=== PATIENT | female | born 1955 | race Caucasian/White ===

== ENCOUNTER 2023-02-21 08:41 | Outpatient (OUT) | payer MEDICARE, SELFPAY ==
--- NOTE | 2023-02-21 08:43 | MM_ITS ---
Patient Name: JEAINE HARDIN MR#: [id number] : 1955 Exam Date: 02/21/2023 Ordering Doctor: DR IVÁN MARROQUIN M.D. RADIOLOGY REPORT PROCEDURE: MM TOMOSYNTHESIS SCREENING BI COMPARISON: MG MAMM SCREEN 3D CRICKET CAD, 01/28/2022. MG MAMM SCREEN 3D CRICKET CAD, 12/23/2020. MG MAMM SCREEN CRICKET W CAD, 05/22/2018. MAMMO CRICKET SCREEN, 01/19/2012. INDICATIONS: Screening Calculator Name NCI Breast Cancer Risk Assessment Tool 5 Year Breast Cancer Risk 1.80% Lifetime Breast Cancer Risk 6.60% Personal Breast Cancer No Personal Ovarian Cancer No Treatments None Family Cancers Brother with bladder/prostate cancer at age 51; Aunt-paternal with breast cancer at age 50; Aunt-maternal with pancreatic cancer at age 60. LOCATION: [facility] BREAST COMPOSITION: Heterogeneously dense,which may obscure small masses. FINDINGS: DIAGNOSTIC CATEGORY 1--NEGATIVE. RIGHT BREAST: No significant suspicious finding. No significant change has occurred. LEFT BREAST: No significant suspicious finding. No significant change has occurred. RECOMMENDATIONS: ROUTINE MAMMOGRAM AND CLINICAL EVALUATION IN 12 MONTHS. PLEASE NOTE: A NORMAL MAMMOGRAM DOES NOT EXCLUDE THE POSSIBILITY OF BREAST CANCER. A CLINICALLY SUSPICIOUS PALPABLE LUMP SHOULD BE BIOPSIED. Dictated by: Ian Bills M.D. on 02/21/2023 at 15:05 Approved by: Ian Bills M.D. on 02/21/2023 at 15:07
== END 2023-02-21 08:42 | disposition home or self-care (01) ==
LOC: MAMMO 08:41
PROVIDERS: PCP Family Medicine; Visit Provider Family Medicine
DX: Z12.31 Encounter for screening mammogram for malignant neoplasm of breast (principal); Z80.52 Family history of malignant neoplasm of bladder; Z80.42 Family history of malignant neoplasm of prostate; Z80.3 Family history of malignant neoplasm of breast; Z80.8 Family history of malignant neoplasm of other organs or systems
CPT/HCPCS: 77063; 77067

== ENCOUNTER 2024-02-26 09:01 | Outpatient (OUT) | payer OTHER, SELFPAY ==
--- NOTE | 2024-02-26 09:05 | MM_ITS ---
Patient Name: JEANIE HARDIN MR#: [id number] : 1955 Exam Date: 02/26/2024 Ordering Doctor: DR IVÁN MARROQUIN M.D. RADIOLOGY REPORT PROCEDURE: MM TOMOSYNTHESIS SCREENING BI COMPARISON: MM TOMOSYNTHESIS SCREENING BI, 02/21/2023. MG MAMM SCREEN 3D CRICKET CAD, 01/28/2022. MG MAMM SCREEN 3D CRICKET CAD, 12/23/2020. MAMMO CRICKET SCREEN, 01/19/2012. INDICATIONS: Screening Calculator Name NCI Breast Cancer Risk Assessment Tool 5 Year Breast Cancer Risk 1.80% Lifetime Breast Cancer Risk 6.40% Personal Breast Cancer No Personal Ovarian Cancer No Treatments None Family Cancers Brother with bladder/prostate cancer at age 51; Aunt-paternal with breast cancer at age 50; Aunt-maternal with pancreatic cancer at age 60. LOCATION: [facility] BREAST COMPOSITION: The breasts are heterogeneously dense,which may obscure small masses. FINDINGS: DIAGNOSTIC CATEGORY 1--NEGATIVE. RIGHT BREAST: No significant suspicious finding. No significant change has occurred. LEFT BREAST: No significant suspicious finding. No significant change has occurred. RECOMMENDATIONS: ROUTINE MAMMOGRAM AND CLINICAL EVALUATION IN 12 MONTHS. PLEASE NOTE: A NORMAL MAMMOGRAM DOES NOT EXCLUDE THE POSSIBILITY OF BREAST CANCER. A CLINICALLY SUSPICIOUS PALPABLE LUMP SHOULD BE BIOPSIED. Dictated by: Ian Bills M.D. on 02/26/2024 at 15:43 Approved by: Ian Bills M.D. on 02/26/2024 at 15:47
== END 2024-02-26 09:02 | disposition home or self-care (01) ==
LOC: MAMMO 09:01
PROVIDERS: PCP Family Medicine; Visit Provider Family Medicine
DX: Z12.31 Encounter for screening mammogram for malignant neoplasm of breast (principal); Z80.52 Family history of malignant neoplasm of bladder; Z80.3 Family history of malignant neoplasm of breast; Z80.42 Family history of malignant neoplasm of prostate; Z80.8 Family history of malignant neoplasm of other organs or systems
CPT/HCPCS: 77063; 77067

== ENCOUNTER 2024-11-05 13:45 | Outpatient (OUT) | payer MEDICARE, SELFPAY ==
--- OUTSIDE RECORDS SUMMARY | 2024-10-22 14:00 | XMS_ITS | Encounter Summary ---
Author Organization [facility] Address [address] [place] [address] Care Team Providers Care Singe Machine Operator Name Role Phone Fransico Ng MD Primary Care Provider [phone] Fransico Ng MD Unavailable Reason for Referral * Imaging (Routine) - Authorized Specialty Diagnoses / Procedures Referred By Contac t Referred To Contact Radiology Diagnoses Diverticulitis Procedures CT abdomen pelvis w and wo IV contrast Fransico Ng MD [address] [address] [place] [address] Phone: tel: fax: [facility] [address] [facility] [address] [place] [address] Phone: tel: fax: Referral ID Status Reason Start Date Expiration Date V isits Requested Visits Authorized [id number] Authorized 10/22/2024 04/20/2025 1 1 Reason for Visit * Reason Comments Diverticulitis Encounter Details Date Type Department Care Team (Late st Contact Info) Description 10/22/2024 2:00 PM EDT [facility] [address] [facility] [address] [place] [address] Fransico Ng MD 112 [facility] [address] [place] [address] Diverticulitis (Primary Dx); OAB (overactive bladder) Social History Tobacco Use Types Packs/Day Years Used Date Smoking Tobacco: Former Cigarettes 1 34 1 976 - 2010 Smokeless Tobacco: Never Alcohol Use Standard Drinks/Week Comments Never 0 (1 standard drink = 0.6 oz pure alcohol) caffeine intake: 1-2 cups per day Humiliation, Afraid, Rape, and Kick questionnair e Answer Date Recorded Within the last year, have y ou been afraid of your partner or ex-partner? Patient declined 11/23/2022 Within the last year, have y ou been humiliated or emotionally abused in other ways by your partner or ex-partner? Patient declined 11/23/2022 Within the last year, have y ou been kicked, hit, slapped, or otherwise physically hurt by your partner or ex-partner? Patient declined 11/23/2022 Within the last year, have y ou been raped or forced to have any kind of sexual activity by your partner or ex-partner? Patient declined 11/23/2022 Social Connection and Isolation Panel [NHANES] A nswer Date Recorded In a typical week, how many times do you talk on the phone with family, friends, or neighbors? Patient declined 11/23/2022 How often do you get togethe r with friends or relatives? Patient declined 11/23/2022 How often do you attend latter day or scientologist serv ices? Patient declined 11/23/2022 Do you belong to any clubs o r organizations such as latter day groups, unions, fraternal or athletic groups, or school groups? Patient declined 11/23/2022 How often do you attend meet ings of the clubs or organizations you belong to? Patient declined 11/23/2022 Are you , , di vorced, , never , or living with a partner? Patient declined 11/23/2022 AUDIT-C Answer Date Recorded Q1: How often do you have a drink containing alc ohol? Patient declined 11/23/2022 Q2: How many drinks containi ng alcohol do you have on a typical day when you are drinking? Patient declined 11/23/2022 Q3: How often do you have si x or more drinks on one occasion? Patient declined 11/23/2022 Overall Financial Resource Strain (CARDIA) Answe r Date Recorded How hard is it for you to pa y for the very basics like food, housing, medical care, and heating? Patient declined 11/23/2022 PHQ-2 Answer Date Recorded Patient Health Questionnaire-2 Score 0 10/22/2024 Exercise Vital Sign Answer Date Recorde d On average, how many days pe r week do you engage in moderate to strenuous exercise (like a brisk walk)? Patient declined On average, how many minutes do you engage in exercise at this level? Patient declined 11/23/2022 Hunger Vital Sign Answer Date Recorded Within the past 12 months, y ou worried that your food would run out before you got the money to buy more. Patient declined Within the past 12 months, t he food you bought just didn't last and you didn't have money to get more. Patient declined 08/2022 PRAPARE - Transportation Answer Date Re corded In the past 12 months, has l ack of transportation kept you from medical appointments or from getting medications? Patient declined 11/23/2022 In the past 12 months, has l ack of transportation kept you from meetings, work, or from getting things needed for daily living? Patient declined 11/23/2022 Housing Stability Vital Sign Answer Milo e Recorded In the last 12 months, was t here a time when you were not able to pay the mortgage or rent on time? Patient refused 11/24/19 23 Number of Places Lived in the Last Year Not on f ile 11/23/2022 In the last 12 months, was t here a time when you did not have a steady place to sleep or slept in a usp (including now)? Patient refused 11/23/2022 Comments Unknown Sex and Gender Information Value Date Recorded Sex Assigned at Not on file Legal Sex Female 6:51 PM EDT Gender Identity Not on file Sexual Orientation Not on file documented as of this encounter Last Filed Vital Signs Vital Sign Reading Time Taken Comments Blood Pressure 112/78 10/22/2024 1:54 PM EDT Pulse 108 10/22/2024 1:54 PM EDT Temperature - - Respiratory Rate - - Oxygen Saturation 98% 10/22/2024 1:54 PM EDT Inhaled Oxygen Concentration - - Weight 60.3 kg (133 lb) 10/22/2024 1:54 PM EDT Height 157.5 cm (5' 2 ) 10/22/2024 1:54 PM EDT Body Mass Index 24.33 10/22/2024 1:54 PM EDT documented in this encounter Functional Status * Over the past 2 weeks, how often have you been bothered by any of the following problems? Question Answer Date of Assessment Author Little interest or pleasure in doing things Not at all 10/22/2024 7:22 AM EDT Zoe Berg MA Feeling down, depressed, or hopeless Not at all 10/22/2024 7:22 AM EDT Zoe Berg MA Patient Health Questionnaire -2 Score 0 10/22/2024 7:22 AM EDT Zoe Berg MA documented as of this encounter Progress Notes * Fransico Ng MD - 10/22/2024 2:01 PM EDTAssociated Problem(s): Diverticulitis Add Probiotic to help replenish the good bacteria that are destroyed by the Antibiotics Florastor Florajen Align or try Activia in Yogurt Probiotics reduce the risk of antibiotic induced diarrhea Needs f/up with Head Screen Worker No fast twitching exercises due to Atbx * Fransico Ng MD - 10/22/2024 2:00 PM EDT Images from the original note were not included. Subjective Patient ID: Betzaida Jerez is a 69 y.o. female who presents for Diverticulitis. Pt is having trouble with her diverticulitis, Monday it hit her again with nausea vomiting abd pain, then today there is abd pain also been getting hot and cold Pt went up to [facility] to gastro, they had stated the next time this happens to get a CT scan and would like for results to be faxed up there Over the past 2 weeks, how often have you been bothered by any of the following problems? Little interest or pleasure in doing things: Not at all Feeling down, depressed, or hopeless: Not at all Patient Health Questionnaire-2 Score: 0 Current Outpatient Medications on File Prior to Visit Medication Sig Dispense Refill Calcium Carbonate-Vitamin D (Oyster Shell Calcium/D) 500-5 MG-MCG tablet Take 1 tablet by mouth in the morning and 1 tablet in the evening. Take with meals. estradiol (Estrace) 0.1 MG/GM vaginal cream INSERT 1 gram VAGINALLY on MONDAY and MONDAY loratadine-pseudoephedrine ER (Claritin-D 24 Hour) 10-240 MG 24 hr tablet Take 1 tablet by mouth Daily Do not crush, chew, or split. 30 tablet 11 Multiple Vitamin (multivitamin) capsule Take 1 capsule by mouth Daily Multiple Vitamins-Minerals (PRESERVISION AREDS PO) Take by mouth [DISCONTINUED] metroNIDAZOLE (Flagyl) 500 MG tablet Take 500 mg by mouth in the morning and 500 mg in the evening and 500 mg before bedtime. [DISCONTINUED] mirabegron ER (Myrbetriq) 50 MG 24 hr tablet Take 50 mg by mouth Daily No current facility-administered medications on file prior to visit. I have reviewed and reconciled the history and medication list with the patient today. No Known Allergies Social History Tobacco Use Smoking status: Former Current packs/day: 0.00 Average packs/day: 1 pack/day for 34.0 years (34.0 ttl pk-yrs) Types: Cigarettes Start date: 1975 Quit date: 2009 Years since quittin.6 Smokeless tobacco: Never Vaping Use Vaping status: Never Used Substance Use Topics Alcohol use: Never Comment: caffeine intake: 1-2 cups per day Drug use: Yes Types: Marijuana Family History Problem Relation Name Age of Onset Stroke Mother Cancer Brother Aron Chavarria Past Medical History: Diagnosis Date Allergic COVID Cystourethrocele 2008 H/O degenerative disc disease 2012 History of partial hysterectomy 2009 partial, bladder susp. and rectal repair Trigger thumb of left hand 2012 Past Surgical History: Procedure Laterality Date BACK SURGERY Right 11/02/2011 BREAST BIOPSY COLONOSCOPY 2016 dr. flanagan ELBOW SURGERY 2005 tendons removed on both elbows dr. santamaria HYSTERECTOMY Partial 2009? PARTIAL HYSTERECTOMY 2009 SPINE SURGERY Fusion 2012 TUBAL LIGATION 02/1985 Visit Vitals BP 112/78 Pulse 108 Ht 5' 2 Wt 133 lb SpO2 98% BMI 24.33 kg/m?? Smoking Status Former BSA 1.62 m?? Review of Systems Gastrointestinal: Positive for abdominal pain. Genitourinary: Negative for dysuria and frequency. Objective Physical Exam Constitutional: Appearance: Normal appearance. Abdominal: Tenderness: There is abdominal tenderness. There is no guarding. Neurological: Mental Status: She is alert. Assessment/Plan Problem List Items Addressed This Visit Diverticulitis - Primary Add Probiotic to help replenish the good bacteria that are destroyed by the Antibiotics Florastor Florajen Align or try Activia in Yogurt Probiotics reduce the risk of antibiotic induced diarrhea Needs f/up with Head Screen Worker Relevant Medications ciprofloxacin (Cipro) 500 MG tablet Other Relevant Orders CT abdomen pelvis w and wo IV contrast Creatinine, Serum OAB (overactive bladder) Relevant Medications mirabegron ER (Myrbetriq) 50 MG 24 hr tablet No follow-ups on file. documented in this encounter Plan of Treatment Upcoming Encounters Date Type Department Care Team (Late st Contact Info) Description 11/19/2024 11:10 AM EDT Office Visit [facility] [address] [place] [address] Christ Ewing, [address] [facility] [address] [place], [place] [id number] Scheduled Orders Name Type Priority Associated Diagnoses Orde r Schedule CT abdomen pelvis w and wo IV contrast Imaging Routine Diverticulitis Expected: 10/22/2024, Expires: 10/22/2025 documented as of this encounter Procedures Procedure Name Priority Date/Time Associated Diagnosis Comments CREATININE Routine 10/22/2024 2:13 PM EDT Diverticulitis documented in this encounter Results * Creatinine, Serum (10/22/2024 2:13 PM EDT) Creatinine 0.56 0.50 - 1.05 mg/dL [facility] EGFR 100 > OR = 60 mL/min/1.73m 2 [facility] Blood Venous blood specimen / Unknown 10/22/2024 2:13 PM EDT 10/22/2024 2:13 PM EDT Narrative Resulting Agency Comment Performing Organization Information Site ID: QPT Name: [facility] Address: [address]ark[address] Santos , [address] [place] [address] Director: Richard Mcintyre MD Fransico Ng MD LAB BLOOD ORDERABLES Final Resul t [facility] documented in this encounter Visit Diagnoses Diagnosis Diverticulitis- Primary Diverticulitis of colon (without mention of hemorrhage) OAB (overactive bladder) documented in this encounter Additional Health Concerns Assessment Noted Time PHQ-9 Depression Total Score: 0 02/07/20 24 9:00 AM EST documented as of this encounter Care Teams Singe Machine Operator Relationship Specialty Start Date End Date Fransico Ng MD [address] [facility] [address] [place] [address] PCP - General Family Medicine 07/26/22 Fransico Ng MD [address] [facility] [address] [place] [address] PCP - Medical [place] MA 03/20/2403/19 documented as of this encounter
--- OUTSIDE RECORDS SUMMARY | 2024-11-04 09:40 | XMS_ITS | Encounter Summary ---
Author Organization [facility] Address [address] [place] [address] Care Team Providers Care Division Head Name Role Phone Fransico Ng MD Primary Care Provider [phone] Fransico Ng MD Unavailable Reason for Visit * Reason Comments Ovarian Cyst * OBGYN (Routine) - Closed Specialty Diagnoses / Procedures Referred By Contact Referred To Contact Obstetrics and Gynecology Diagnoses Bilateral ovarian cysts Procedures [facility] OFFICE/OUTPATIENT [facility] 60 MINUTES Namrata Concepcion, TABLE TENDER [address] [address] Phone: tel: fax: Christ Ewing DO [address] [place] [address] Phone: tel: fax: Referral ID Status Reason Start Date Expiration Date V isits Requested Visits Authorized [id number] Closed Specialty Services Required 10/07/2024 04/05/2025 1 1 Encounter Details Date Type Department Care Team (Late st Contact Info) Description 11/04/2024 9:40 AM EDT Consult [facility] [place] [facility] [address] [place] [address] Christ Ewing DO [address] [place] [address] Bilateral ovarian cysts; Vaginal itching; Yeast infection; Vaginal atrophy Social History Tobacco Use Types Packs/Day Years Used Date Smoking Tobacco: Former Cigarettes 1 34 1 976 - 2009 Smokeless Tobacco: Never Alcohol Use Standard Drinks/Week [...] declined 11/23/2022 How often do you attend jain or jewish serv ices? Patient declined 11/23/2022 Do you belong to any clubs o r organizations such as jain groups, unions, fraternal or athletic groups, or [...] place to sleep or slept in a long-term (including now)? Patient refused 11/23/2022 Comments No Sex and Gender Information Value Date Recorded Sex Assigned at Not on file Legal Sex Female 6:51 PM EDT Gender Identity Not on file Sexual Orientation Not on file documented as of this encounter Last Filed Vital Signs Vital Sign Reading Time Taken Comments Blood Pressure 120/78 11/04/2024 9:49 AM EDT Pulse - - Temperature - - Respiratory Rate - - Oxygen Saturation - - Inhaled Oxygen Concentration - - Weight 61.6 kg (135 lb 12.8 oz) 11/04/2024 9:49 AM EDT Height - - Body Mass Index 24.84 10/22/2024 1:54 PM EDT documented in this encounter Progress Notes * Betzaida Nash LPN - 11/04/2024 9:40 AM EDT Reason for Appointment: Patient ID: Betzaida Jerez is a 69 y.o. female who presents for Ovarian Cyst Patient presents today for Consult appointment. MEDICATIONS Current Outpatient Medications Medication Instructions Calcium Carbonate-Vitamin D (Oyster Shell Calcium/D) 500-5 MG-MCG tablet 1 tablet, 2 times daily with meals docusate sodium (COLACE) 100 mg, 2 times daily estradiol (Estrace) 0.1 MG/GM vaginal cream INSERT 1 gram VAGINALLY on MONDAY and MONDAY loratadine-pseudoephedrine ER (Claritin-D 24 Hour) 10-240 MG 24 hr tablet 1 tablet, Oral, Daily, Donot crush, chew, or split. mirabegron ER (MYRBETRIQ) 50 mg, Oral, Daily Multiple Vitamin (multivitamin) capsule 1 capsule, Daily Multiple Vitamins-Minerals (PRESERVISION AREDS PO) Take by mouth saccharomyces boulardii (FLORASTOR) 250 mg, 2 times daily ALLERGIES No Known Allergies PROBLEMS Active Ambulatory Problems Diagnosis Date Noted Allergic rhinitis 07/04/2007 Bruxism 11/23/2022 Chronic obstructive pulmonary disease, unspecified (HCC) 07/04/2007 Chronic sinusitis 11/23/2022 Difficulty walking 11/23/2022 Fibrocystic breast changes 11/23/2022 History of hysterectomy 11/23/2022 Other headache syndrome 11/23/2022 Pure hypercholesterolemia 11/23/2022 Sacroiliitis, not elsewhere classified 11/23/2022 Diverticulitis 03/01/2023 Prolapse of urethra 03/01/2023 Snapping thumb syndrome 03/01/2023 OAB (overactive bladder) 02/07/2024 Unspecified urethral stricture, female 02/07/2024 Urge incontinence 02/07/2024 Urinary frequency 02/07/2024 Vaginal atrophy 02/07/2024 Diverticulosis 02/07/2024 Former smoker 02/07/2024 Early dry stage nonexudative age-related macular degeneration of both eyes 02/07/2024 Diverticulosis of colon 04/08/2024 Generalized abdominal pain 04/08/2024 Tubular adenoma of colon 04/08/2024 Resolved Ambulatory Problems Diagnosis Date Noted Seasonal allergies 11/23/2022 Tobacco use disorder 07/04/2007 Abnormal urinalysis 02/07/2024 Hyperlipidemia 02/07/2024 Past Medical History: Diagnosis Date Allergic COVID Cystourethrocele 2009 H/O degenerative disc disease 2011 History of partial hysterectomy 2009 Trigger thumb of left hand 2012 HISTORY PAST MEDICAL HISTORY SOCIAL HISTORY Past Medical History: Diagnosis Date Allergic COVID Cystourethrocele 2009 H/O degenerative disc disease 2011 History of partial hysterectomy 2009 partial, bladder susp. and rectal repair Trigger thumb of left hand 2012 Social History Tobacco Use Smoking status: Former Current packs/day: 0.00 Average packs/day: 1 pack/day for 34.0 years (34.0 ttl pk-yrs) Types: Cigarettes Start date: 1975 Quit date: 2009 Years since quittin.6 Smokeless tobacco: Never Vaping Use Vaping status: Never Used Substance Use Topics Alcohol use: Never Comment: caffeine intake: 1-2 cups per day Drug use: Yes Types: Marijuana FAMILY HISTORY Family History Problem Relation Name Age of Onset Stroke Mother Cancer Brother Aron Chavarria SURGICAL HISTORY Past Surgical History: Procedure Laterality Date BACK SURGERY Right 11/02/2011 BREAST BIOPSY COLONOSCOPY 2016 dr. flanagan ELBOW SURGERY 2005 tendons removed on both elbows dr. santamaria HYSTERECTOMY Partial 2009? PARTIAL HYSTERECTOMY 2009 SPINE SURGERY Fusion 2012 TUBAL LIGATION 02/1985 REVIEW OF SYSTEMS Review of Systems: Review of Systems Constitutional: Negative. HENT: Negative. Eyes: Negative. Respiratory: Negative. Cardiovascular: Negative. Gastrointestinal: Negative. Genitourinary: Positive for pelvic pain. Musculoskeletal: Negative. Skin: Negative. Neurological: Negative. All other systems reviewed and are negative. Hematological: Negative. Endocrine: Negative. Allergic/Immunologic: Negative. OBJECTIVE Objective: Physical Exam Constitutional: Appearance: Normal appearance. She is well-developed. Genitourinary: Vulva normal. Vaginal cuff intact. Cervix is absent. Uterus is absent. Cardiovascular: Rate and Rhythm: Normal rate and regular rhythm. Abdominal: General: Bowel sounds are normal. There is no distension. Palpations: Abdomen is soft. Tenderness: There is no abdominal tenderness. There is no guarding or rebound. Musculoskeletal: General: No swelling. Normal range of motion. Right lower leg: No edema. Left lower leg: No edema. Neurological: Mental Status: She is alert and oriented to person, place, and time. Skin: General: Skin is warm and dry. Psychiatric: Mood and Affect: Mood normal. Behavior: Behavior normal. Vitals and nursing note reviewed. Exam conducted with a copy messenger present. Vitals: Estimated body mass index is 24.84 kg/m?? as calculated from the following: Height as of 10/22/24: 5' 2 . Weight as of this encounter: 135 lb 12.8 oz. BP: 120/78 No LMP recorded. Patient has had a hysterectomy. ASSESSMENT & PLAN ICD-10-CM 1. Bilateral ovarian cysts N83.201 Ambulatory referral to Obstetrics / Gynecology N83.202 2. Vaginal itching N89.8 Patient presents to office today for recent ER visit [place] of state. Patient will have US performed and then go over options for management. Patient voiced that she is also having vaginal irritation. Patient return to clinic in 2 weeks for follow up. Patient voiced she previously had a Bartholin cystin the past. Discussed Estrace cream daily for 2 weeks and then return to clinic to review US results and Diflucan sent to pharmacy. Patient will update provider on vaginal itching at time of results. Documented by Betzaida Nash LPN on behalf of: Christ Ewing DO documented in this encounter Plan of Treatment Upcoming Encounters Date Type Department Care Team (Late st Contact Info) Description 11/19/2024 11:10 AM EDT Office Visit [facility] [place] [facility] [address] [place] [address] Christ Ewing DO [address] [place] [address] Scheduled Orders Name Type Priority Associated Diagnoses Orde r Schedule US Pelvis w/ TV Imaging Routine Bilateral ovarian cysts Expected: 11/04/2024, Expires: 05/07/2025 documented as of this encounter Visit Diagnoses Diagnosis Bilateral ovarian cysts Other and unspecified ovarian cyst Vaginal itching Pruritus of genital organs Yeast infection Vaginal atrophy Postmenopausal atrophic vaginitis documented in this encounter Additional Health Concerns Assessment Noted Time PHQ-9 Depression Total Score: 0 02/07/20 24 9:00 AM EST documented as of this encounter Care Teams Division Head Relationship Specialty Start Date End Date Fransico Ng MD [address] [facility] [address] [place] [address] PCP - General Family Medicine 07/26/22 Fransico Ng MD [address] [facility] [address] [place] [address] PCP - Medical [facility] 03/20/2403/19 documented as of this encounter
--- NOTE | 2024-11-05 13:50 | US_ITS ---
[address] [address] Patient Name: JEANIE HARDIN MRN: [id number] date: 1955 Sex: F Assigned Patient Location: [place] Current Patient Location: Accession/Order Number: [id number] Exam Date: 11/06/2024 12:44 Report Date: 11/06/2024 12:46 At the request of: MODESTA AGUIAR DO Procedure: US pelvis w/ transvaginal Pelvic ultrasound HISTORY: Bilateral ovarian cyst Hysterectomy. Right ovary measures 3.5 x 3.0 x 2.9 cm with resistive index of 0.36. 2.9 cm anechoic right ovarian cyst identified. Left ovary not visualized. No adnexal mass. No free fluid. US/US pelvis w/ transvaginal IMPRESSION: 2.9 cm anechoic right ovarian cyst. Impression dictated by: Amandeep Meyer M.D. 11/06/2024 12:46 PM Dictation Location: [place] [address] Electronically authenticated by: [id number] Y Date: 11/06/2024 12:46
--- OUTSIDE RECORDS SUMMARY | 2024-11-05 13:50 | XMS_ITS | Encounter Summary ---
Author Organization [facility] Address [address] [place] [address] Care Team Providers Care Recycling Sorter Name Role Phone Fransico Ng MD Primary Care Provider [phone] Fransico Ng MD Unavailable Fransico Ng MD Unavailable Fransico Ng MD Unavailable Encounter Details Date Type Department Care Team (Late st Contact Info) Description 11/30/2022 Abstract [facility] [place] [facility] [address] [facility] 110 [place] [phone] Fransico Ng MD [address] [facility] 110 [place], [place] [id number] Social History Tobacco Use Types Packs/Day Years Used Date Smoking Tobacco: Former Cigarettes Q uit: 2009 Smokeless Tobacco: Never Humiliation, Afraid, Rape, and Kick questionnair e [...] declined 11/23/2022 How often do you attend taoist or yarsani serv ices? Patient declined 11/23/2022 Do you belong to any clubs o r organizations such as taoist groups, unions, fraternal or athletic groups, or [...] Date Recorded Patient Health Questionnaire-2 Score 0 11/24/2022 Exercise Vital Sign Answer Date Recorde d [...] or rent on time? Patient refused 11/24/19 Number of Places Lived in the Last Year Not on f ile 11/23/2022 In the last 12 months, was t here a time when you did not have a steady place to sleep or slept in a senior living (including now)? Patient refused 11/23/2022 Comments Unknown Sex and Gender Information Value Date Recorded Sex Assigned at Not on file Legal Sex Female 6:51 PM EDT Gender Identity Not on file Sexual Orientation Not on file COVID-19 Exposure Response Date Recorded In the last 10 days, have yo u been in contact with someone who was confirmed or suspected to have Coronavirus/COVID-19? No / Unsure 11/23/2022 10:45 AM EDT documented as of this encounter Plan of Treatment Upcoming Encounters Date Type Department Care Team (Late st Contact Info) Description 11/19/2024 11:10 AM EDT Office Visit [facility] [address] [facility] [place] [address] Christ Ewing DO [address] [facility] [place] [address] documented as of this encounter Visit Diagnoses Not on filedocumented in this encounter Additional Health Concerns Assessment Noted Time PHQ-9 Depression Total Score: 0 11/25/19 23 9:00 AM EDT documented as of this encounter Care Teams Recycling Sorter Relationship Specialty Start Date End Date Fransico Ng MD [address] [facility] 110 [place] [phone] PCP - General Family Medicine 07/26/22 Fransico Ng MD [address] [facility] 110 [place] [phone] PCP - [place] MA 11/18/22 03/19/23 Fransico Ng MD [address] [facility] 110 [place] [address] PCP - Devoted 03/20/23 03/19/24 Fransico Ng MD [address] [facility] 110 [place] [address] PCP - Medical Rubén WEBSTER 03/20/2403/19 documented as of this encounter
--- OUTSIDE RECORDS SUMMARY | 2024-11-05 13:50 | XMS_ITS | Encounter Summary ---
Author Organization [facility] Address [address] [place] [address] Care Team Providers Care Waterproofer Name Role Phone Fransico Ng MD Primary Care Provider [phone] Fransico Ng MD Unavailable Encounter Details Date Type Department Care Team (Late st Contact Info) Description 08/22/2024 Orders Only [facility] [place] [facility] [address] [place] [address] [place] [phone] Dayana Franklin LPN [address] [place] [address] Encounter for screening mammogram for malignant neoplasm of breast Social History Tobacco Use Types Packs/Day Years [...] declined 11/23/2022 How often do you attend gnosticist or nondenominational serv ices? Patient declined 11/23/2022 Do you belong to any clubs o r organizations such as gnosticist groups, unions, fraternal or athletic groups, or [...] Date Recorded Patient Health Questionnaire-2 Score 0 07/02/2024 Exercise Vital Sign Answer Date Recorde d [...] place to sleep or slept in a fdc (including now)? Patient refused 11/23/2022 Comments Unknown Sex and Gender Information Value Date Recorded Sex Assigned at Not on file Legal Sex Female 6:51 PM EDT Gender Identity Not on file Sexual Orientation Not on file documented as of this encounter Plan of Treatment Upcoming Encounters Date Type Department Care Team (Late st Contact Info) Description 11/19/2024 11:10 AM EDT Office Visit [facility] [place] [facility] [address] [facility] [address] [address] Christ Ewing DO [address] [facility] [address] [place], [place] [phone] documented as of this encounter Visit Diagnoses Diagnosis Encounter for screening mammogram for malignant neoplasm of breast documented in this encounter Additional Health Concerns Assessment Noted Time PHQ-9 Depression Total Score: 0 02/07/20 24 9:00 AM EST documented as of this encounter Care Teams Waterproofer Relationship Specialty Start Date End Date Fransico Ng MD [address] [place] 110 [place] [address] PCP - General Family Medicine 07/26/22 Fransico Ng MD [address] [place] [address] [place] [address] PCP - Medical Perry MA 03/20/2403/19 documented as of this encounter
--- OUTSIDE RECORDS SUMMARY | 2024-11-05 13:50 | XMS_ITS | Clinical Summary ---
Author Organization [facility] Address [address] [place] [address] Care Team Providers Care Senior Oracle Developer Name Role Phone Namrata Concepcion APRN Unavailable [phone] Allergies No known active allergies Medications multivit-min/brenda venessa fumarate (MULTI VITAMIN PO) Take by mouth. Activ e vit A/vit C/vit E/zinc/copper (PRESERVISION AREDS PO) Take by mouth. Activ e Lactobacillus acidophilus (PROBIOTIC PO) Take by mouth. Active loratadine (CLARITIN) 10 mg tablet once daily. Active mirabegron (MYRBETRIQ) 50 mg Tb24 Take 50 mg by mouth. Active estradiol (ESTRACE) 0.01 % (0.1 mg/gram) vaginal cream INSERT 1 gram VAGINALLY on MONDAY and MONDAY Active MEDICATION, NON-DATABASE Calcium Citrate + D3 Active Encounters Date Type Department Care Team Description 10/16/2024 1:00 PM EDT Office Visit Colorectal Surgery [address] [id number] Craig Zhao MD Diverticulitis 10/16/2024 Travel 10/04/2024 Transcribe Orders Referring Physician [address] [place] [phone] Namrata Concepcion, MANISH Diverticulitis (Primary Dx) from Last 3 Months Family History Medical History Relation Comments Bladder Cancer Brother Relation Status Comments Brother Social History Tobacco Use Types Packs/Day Years Used Date Smoking Tobacco: Former Cigarettes 1 34 1 975 - 2009 Smokeless Tobacco: Never Alcohol Use Standard Drinks/Week Comments Yes 0 (1 standard drink = 0.6 oz pur e alcohol) [facility] Area Deprivation Index Answer Date Eduar rded National Score (1-100), lower number is lower ri sk 93 10/16/2024 State Score (1-10), lower number is lower risk 9 10/16/2024 Data from: https://www.neighborhoodatlas.medicine.[facility].edu/. Last address used for calculation [address] 10/16/2024 Comments No Sex and Gender Information Value Date Recorded Sex Assigned at Female 10/08/2024 10:50 AM EDT Legal Sex Female 1:35 PM EDT Gender Identity Female 10/08/2024 10:50 AM EDT Sexual Orientation Not on file Last Filed Vital Signs Vital Sign Reading Time Taken Comments Blood Pressure 139/76 10/16/2024 12:56 PM EDT Pulse 80 10/16/2024 12:56 PM EDT Temperature 36.4 C (97.6 F) 10/16/2024 12:56 PM EDT Respiratory Rate - - Oxygen Saturation 98% 10/16/2024 12:56 PM EDT Inhaled Oxygen Concentration - - Weight 61.2 kg (135 lb) 10/16/2024 12:56 PM EDT Height 160 cm (5' 3 ) 10/16/2024 12:56 PM EDT Body Mass Index 23.91 10/16/2024 12:56 PM EDT Plan of Treatment Health Maintenance Due Date Last Done Comments Anxiety Screening 09/14/1975 Depression Screening 09/14/1975 Hepatitis C Screening 09/14/1975 DTaP,Tdap,Td Vaccine (1 - Tdap) 1976 CT Colonography 2002 Cologuard (FIT-DNA) 2002 Diabetes Screening 2002 Fecal Occult Blood 2002 Lipid Screening 2002 Sigmoidoscopy 2002 Pneumococcal Vaccine: 50+ (1 of 1 - PCV) 09/14/2007 Shingrix Vaccine (1 of 2) 09/14/2007 Colonoscopy 01/31/2017 02/01/2016 Colorectal Cancer Screening 01/31/2017 Mammogram Screening 01/28/2023 01/28/2022, 01/04/2022, 12/23/2020, Additional history exists Advance Directive Discussion 03/20/2024 Medicare Advantage Annual We llness Visit 03/20/2024 Influenza Vaccine (#1) 2024 RSV Vaccine (1 - 1-dose 75+ series) 2032 Bone Density Screening Completed 12/09/2020 Insurance [facility] O Care Teams Senior Oracle Developer Relationship Specialty Start Date End Date Namrata Concepcion, GRINDING SUPERVISOR [address] [facility] 110 [place], [place] [phone] Referring Family Medicine 10/04/24
--- OUTSIDE RECORDS SUMMARY | 2024-11-05 13:50 | XMS_ITS | Encounter Summary ---
Author Organization [facility] Address [address] [place] [address] Care Team Providers Care Unix System Administrator Name Role Phone Iván Marroquin MD Primary Care Provider [phone] Iván Marroquin MD Unavailable Iván Marroquin MD Unavailable Encounter Details Date Type Department Care Team (Late st Contact Info) Description 02/26/2024 Clinisync Result Encounter [facility] External Department Unsolicited Iván Marroquin MD [address] [facility] 110 [place] [address] Social History Tobacco Use Types Packs/Day Years [...] declined 11/23/2022 How often do you attend nondenominational or judaism serv ices? Patient declined 11/23/2022 Do you belong to any clubs o r organizations such as nondenominational groups, unions, fraternal or athletic groups, or [...] Date Recorded Patient Health Questionnaire-2 Score 0 02/07/2024 Exercise Vital Sign Answer Date Recorde d [...] declined 11/23/2022 Housing Stability Vital Sign Answer Mlio e Recorded In the last 12 months, [...] place to sleep or slept in a retirement (including now)? Patient refused 11/23/2022 Comments Unknown [...] 11:10 AM EDT Office Visit [facility] [place] [facility] [address] [place] [address] Christ Ewing DO [address] [facility] [place] [address] documented as of this encounter Procedures Procedure Name Priority Date/Time Associated Diagnosis Comments MM TOMOSYNTHESIS SCREENING BI 02/26/2024 3:47 PM EST documented in this encounter Results * MM TOMOSYNTHESIS SCREENING BI (02/26/2024 3:47 PM EST) Anatomical Region Laterality Modality Other 02/26/2024 3:47 PM EST Narrative 02/26/2024 3:48 PM EST The [address] [address] Mammography Report Signed Patient: Betzaida Jerez MR#: [id number] : 1955 Acct:[id number] Age/Sex: 68 / F ADM Date: 02/26/24 Loc: MAMMO Attending Dr: IVÁN MARROQUIN Ordering Physician: IVÁN MARROQUIN Results: Date of Service: 02/26/24 Follow Up: Procedure(s): MM tomosynthesis screening BI Accession Number(s): [id number] cc: NIKKY MARROQUINRUMA Patient Name: BETZAIDA JEREZ MR#: [id number] : 1955 Exam Date: 02/26/2024 Ordering Doctor: DR IVÁN MARROQUIN M.D. RADIOLOGY REPORT PROCEDURE: MM TOMOSYNTHESIS SCREENING BI COMPARISON: MM TOMOSYNTHESIS SCREENING BI, 02/21/2023. MG MAMM SCREEN 3D CRICKET CAD, 01/28/2022. MG MAMM SCREEN 3D CRICKET CAD, 12/23/2020. MAMMO CRICKET SCREEN, 01/19/2012. INDICATIONS: Screening Calculator Name NCI Breast Cancer Risk Assessment Tool 5 Year Breast Cancer Risk 1.80% Lifetime Breast Cancer Risk 6.40% Personal Breast Cancer No Personal Ovarian Cancer No Treatments None Family Cancers Brother with bladder/prostate cancer at age 51; Aunt-paternal with breast cancer at age 50; Aunt-maternal with pancreatic cancer at age 60. LOCATION: [facility] BREAST COMPOSITION: The breasts are heterogeneously dense,which may obscure small masses. FINDINGS: DIAGNOSTIC CATEGORY 1--NEGATIVE. RIGHT BREAST: No significant suspicious finding. No significant change has occurred. LEFT BREAST: No significant suspicious finding. No significant change has occurred. RECOMMENDATIONS: ROUTINE MAMMOGRAM AND CLINICAL EVALUATION IN 12 MONTHS. PLEASE NOTE: A NORMAL MAMMOGRAM DOES NOT EXCLUDE THE POSSIBILITY OF BREAST CANCER. A CLINICALLY SUSPICIOUS PALPABLE LUMP SHOULD BE BIOPSIED. Dictated by: Ian Bills M.D. on 02/26/2024 at 15:43 Approved by: Ian Bills M.D. on 02/26/2024 at 15:47 Dictated By: Ian Bills M.D. Signed By: 02/26/24 1548 DD/ 1547 TD/TT: Hospitality Workers: Procedure Note Radiology, Radiologist, MD - 02/26/2024 [place] [address] Mammography Report Signed Patient: Betzaida Jerez CMR#: [id number] : 1955cct:[id number] Age/Sex: 68 / FADM Date: 02/26/24 Loc: MAMMO Attending Dr: IVÁN MARROQUIN Ordering Physician: IVÁN MARROQUINResults: Date of Service: 02/26/24Follow Up: Procedure(s): MM tomosynthesis screening BI Accession Number(s): [id number] cc: CARANIKKY SierraRUMA Patient Name: BETZAIDA JEREZ MR#: [id number] : 1955 Exam Date: 02/26/2024 Ordering Doctor: DR IVÁN MARROQUIN M.D. RADIOLOGY REPORT PROCEDURE: MM TOMOSYNTHESIS SCREENING BI COMPARISON: MM TOMOSYNTHESIS SCREENING BI, 02/21/2023. MG MAMM [id number] CRICKET CAD, 01/28/2022. MG MAMM SCREEN 3D CRICKET CAD, 12/23/2020. MAMMO CRICKET SCREEN, 01/19/2012. INDICATIONS: Screening Calculator Name NCI Breast Cancer Risk Assessment Tool 5 Year Breast Cancer Risk 1.80% Lifetime Breast Cancer Risk 6.40% Personal Breast Cancer No Personal Ovarian Cancer No Treatments None Family Cancers Brother with bladder/prostate cancer at age 51; Aunt-paternal with breast cancer at age 50; Aunt-maternal with pancreatic cancer at age 60. LOCATION: [facility] BREAST COMPOSITION: The breasts are heterogeneously dense,which may obscure small masses. FINDINGS: DIAGNOSTIC CATEGORY 1--NEGATIVE. RIGHT BREAST: No significant suspicious finding. No significant changehas occurred. LEFT BREAST: No significant suspicious finding. No significant changehas occurred. RECOMMENDATIONS: ROUTINE MAMMOGRAM AND CLINICAL EVALUATION IN 12 MONTHS. PLEASE NOTE: A NORMAL MAMMOGRAM DOES NOT EXCLUDE THE POSSIBILITY OFBREAST CANCER. A CLINICALLY SUSPICIOUS PALPABLE LUMP SHOULD BE BIOPSIED. Dictated by: Ian Bills M.D. on 02/26/2024 at 15:43 Approved by: Ian Bills M.D. on 02/26/2024 at 15:47 Dictated By: Ian Bills M.D. Signed By:02/26/24 1548 DD/ 1547 TD/TT: Hospitality Workers: Iván Marroquin MD [facility] Final Result documented in this encounter Visit Diagnoses Not on filedocumented in this encounter Additional Health Concerns Assessment Noted Time PHQ-9 Depression Total Score: 0 02/07/20 24 9:00 AM EST documented as of this encounter Care Teams Unix System Administrator Relationship Specialty Start Date End Date Iván Marroquin MD [address] [address] PCP - General Family Medicine 07/26/22 Iván Marroquin MD [address] [facility] 110 [place] [address] PCP - Devoted 03/20/23 03/19/24 Iván Marroquin MD [address] [address] PCP - Medical [place] MA 03/20/2403/19 documented as of this encounter
--- OUTSIDE RECORDS SUMMARY | 2024-11-05 13:50 | XMS_ITS | Encounter Summary ---
Author Organization [facility] Address [address] [place] [address] Care Team Providers Care Aircraft Designer Name Role Phone Fransico Ng MD Primary Care Provider [phone] Fransico Ng MD Unavailable Fransico Ng MD Unavailable Encounter Details Date Type Department Care Team (Late st Contact Info) Description 04/02/2023 Orders Only [facility] [place] [facility] [address] [facility] 110 [place] [phone] Lynn Mejia, SCRAP HOIST OPERATOR [address] [facility] 110 [place], [place] [address] Social History Tobacco Use Types Packs/Day Years [...] declined 11/23/2022 How often do you attend baptist or catholic serv ices? Patient declined 11/23/2022 Do you belong to any clubs o r organizations such as baptist groups, unions, [employer] or athletic groups, or school groups? Patient [...] place to sleep or slept in a detention (including now)? Patient refused 11/23/2022 Comments Unknown Sex and Gender Information Value Date Recorded Sex Assigned at Not on file Legal Sex Female 6:51 PM EDT Gender Identity Not on file Sexual Orientation Not on file documented as of this encounter Plan of Treatment Upcoming Encounters Date Type Department Care Team (Late st Contact Info) Description 11/19/2024 11:10 AM EDT Office Visit [facility] MURILLOGY[facility]te [address] [facility] [place] [address] Christ Ewing DO [address] [facility] [place] [address] documented as of this encounter Visit Diagnoses Not on filedocumented in this encounter Additional Health Concerns Assessment Noted Time PHQ-9 Depression Total Score: 0 11/25/19 9:00 AM EDT documented as of this encounter Care Teams Aircraft Designer Relationship Specialty Start Date End Date Fransico Ng MD [address] [facility] 110 [place] [address] PCP - General Family Medicine 07/26/22 Fransico Ng MD [address] [facility] 110 [place] [address] PCP - Devoted 03/20/23 03/19/24 Fransico Ng MD [address] [facility] 110 [place] [address] PCP - Medical [place] ELEANOR 03/20/2403/19 documented as of this encounter
--- OUTSIDE RECORDS SUMMARY | 2024-11-05 13:50 | XMS_ITS | Encounter Summary ---
Author Organization [facility] Address [address] [place] [address] Care Team Providers Care Secretary Name Role Phone Fransico Ng MD Primary Care Provider [phone] Fransico Ng MD Unavailable Fransico Ng MD Unavailable Fransico Ng MD Unavailable Encounter Details Date Type Department Care Team (Late st Contact Info) Description 02/15/2023 Abstract [facility] [place] [facility] [address] [facility] 110 [place] [phone] Fransico Ng MD [address] [facility] 110 [place] [address] Social History Tobacco Use Types Packs/Day Years [...] declined 11/23/2022 How often do you attend protestant or episcopal serv ices? Patient declined 11/23/2022 Do you belong to any clubs o r organizations such as protestant groups, unions, fraternal or athletic groups, or [...] place to sleep or slept in a fci (including now)? Patient refused 11/23/2022 Comments Unknown [...] 11:10 AM EDT Office Visit [facility] Keyla KIMBLE [address] [facility] [address] Christ Ewing DO [address] [facility] [address] [place], [place] [phone] documented as of this encounter Visit Diagnoses Not on filedocumented in this encounter Additional Health Concerns Assessment Noted Time PHQ-9 Depression Total Score: 0 11/25/19 9:00 AM EDT documented as of this encounter Care Teams Secretary Relationship Specialty Start Date End Date Fransico Ng MD [address] [facility] 110 [place] [address] PCP - General Family Medicine 07/26/22 Fransico Ng MD [address] [facility] [address] [place] [address] PCP - Emmanuel WEBSTER 11/18/22 03/19/23 Fransico Ng MD [address] [facility] 110 [place] [phone] PCP - Devoted 03/20/23 03/19/24 Fransico Ng MD 112 [facility] 110 [place], [place] [phone] PCP - Medical [place] MA 03/20/2403/19 documented as of this encounter
--- OUTSIDE RECORDS SUMMARY | 2024-11-05 13:50 | XMS_ITS | Encounter Summary ---
Author Organization [facility] Address [address] [place] [address] Care Team Providers Care Russet Repairer Name Role Phone Fransico Ng MD Primary Care Provider [phone] Fransico gN MD Unavailable Encounter Details Date Type Department Care Team (Latest Contact Info) Description 10/22/2024 Travel Social History Tobacco Use Types Packs/Day Years [...] declined 11/23/2022 How often do you attend islam or adventist serv ices? Patient declined 11/23/2022 Do you belong to any clubs o r organizations such as islam groups, unions, fraternal or athletic groups, or [...] place to sleep or slept in a skilled nursing (including now)? Patient refused 11/23/2022 Comments Unknown Sex and Gender Information Value Date Recorded Sex Assigned at Not on file Legal Sex Female 6:51 PM EDT Gender Identity Not on file Sexual Orientation Not on file documented as of this encounter Functional Status * Over the [...] Berg MA documented as of this encounter Plan of Treatment Upcoming Encounters Date Type Department Care Team (Late st Contact Info) Description 11/19/2024 11:10 AM EDT Office Visit [facility] Keyla KIMBLE [address] [facility] [place] [address] Christ Ewing DO [address] [facility] [address] [place], [place] [phone] documented as of this encounter Visit Diagnoses Not on filedocumented in this encounter Additional Health Concerns Assessment Noted Time PHQ-9 Depression Total Score: 0 02/07/20 24 9:00 AM EST documented as of this encounter Care Teams Russet Repairer Relationship Specialty Start Date End Date Fransico Ng MD [address] [facility] 110 [place] [address] PCP - General Family Medicine 07/26/22 Fransico Ng MD [address] [facility] 110 [place] [address] PCP - Medical [place] MA 03/20/2403/19 documented as of this encounter
--- OUTSIDE RECORDS SUMMARY | 2024-11-05 13:50 | XMS_ITS | Clinical Summary ---
Author Organization [facility] tem Address [id number] [address] [place] [address] Care Team Providers Care Informatics Consultant Name Role Phone Fransico Ng MD Primary Care Provider [phone] Allergies No known active allergies Medications multivit-minera ls/ferrous fum (MULTI VITAMIN ORAL) Take by mouth. Active calcium carbonate-vitam in D3 (CALCIUM 500 + D) 500 mg(1,250mg) -200 units per tablet Take 1 tablet by mouth in the morning and 1 tablet in the evening. Take with meals. Active NON FORMULARY EYE DROPS Active loratadine (CLARITIN) 10 mg tablet 1 (one) time each day at the same time. Active Active Problems Problem Noted Date Diagnosed Date Diverticulitis 03/01/2023 Pure hypercholesterolemia 11/23/2022 Chronic obstructive pulmonary disease 07/04/2007 Family History Medical History Relation Name Comments Cancer Brother BLADDER Cancer Maternal Aunt PANCREATIC Parkinsonism Mother Stroke Mother Breast cancer Paternal Aunt Relation Name Status Comments Brother Maternal Aunt Alive Mother Paternal Aunt Alive Social History Tobacco Use Types Packs/Day Years Used Date Smoking Tobacco: Former Smokeless Tobacco: Never Tobacco Cessation:Counseling Given: Not Answered Alcohol Use Standard Drinks/Week Comments Yes 0 (1 standard drink = 0.6 oz pur e alcohol) RARE PHQ-2 Answer Date Recorded Total Score 0 04/13/2023 Childcare Answer Date Recorded Childcare Unknown 08/29/2018 Employment Answer Date Recorded Employment Unknown 08/29/2018 Hunger Screening Answer Date Recorded Within the past 12 months we worried whether our food would run out before we got money to buy more. Never True 04/13/2023 Within the past 12 months th e food we bought just didn't last and we didn't have money to get more. Never True 04/13/2023 Purpose - Life Answer Date Recorded Purpose and direction in life Unknown Comments No Sex and Gender Information Value Date Recorded Sex Assigned at Not on file Legal Sex Female 11:56 AM EDT Gender Identity Not on file Sexual Orientation Not on file Last Filed Vital Signs Vital Sign Reading Time Taken Comments Blood Pressure 120/82 04/13/2023 9:02 AM EST Pulse 77 12/04/2017 12:10 PM EDT Temperature 36.3 C (97.3 F) 12/04/2017 8:37 AM EDT Respiratory Rate 19 12/04/2017 12:10 PM EDT Oxygen Saturation 99% 12/04/2017 12:10 PM EDT Inhaled Oxygen Concentration - - Weight 64.9 kg (143 lb) 04/13/2023 9:02 AM EST Height 160 cm (5' 3 ) 04/13/2023 9:02 AM EST Body Mass Index 25.33 04/13/2023 9:02 AM EST Plan of Treatment Health Maintenance Due Date Last Done Comments DTaP,Tdap and Td Vaccines (1 - Tdap) 1976 Zoster (Shingles) Vaccine (1 of 2) 09/14/2007 Fall Risk Screening 2022 Mammogram 01/28/2023 01/28/2022, 12/18, 12/23/2020, Additional history exists COVID-19 Vaccine ( - 2023-2 5 season) 2023 08/05/2021, 02/20/2021, 06/20/2020, Additional history exists Adult BMI Screening 04/13/2024 04/13/2023 Depression Screening 04/13/2024 04/13/2023 Tobacco Screening 04/13/2024 04/13/2023 Influenza Vaccine 11/18/2024 Pap Smear Discontinued 04/13/2023 Medical Devices Not on file Insurance [employer] [facility] MEDICARE ADVANTAGE Care Teams Informatics Consultant Relationship Specialty Start Date End Date Fransico [place] [address] [place] [address] PCP - General 10/24/17
--- OUTSIDE RECORDS SUMMARY | 2024-11-05 13:50 | XMS_ITS | Encounter Summary ---
Author Organization [facility] Address [address] [place] [address] Care Team Providers Care First Line Supervisor Name Role Phone Fransico Ng MD Primary Care Provider Fransico Ng MD Unavailable Encounter Details Date Type Department Care Team (Late st Contact Info) Description 10/07/2024 Abstract [facility] [address] [facility] 110 [place] [phone] Fransico Ng MD [address] [facility] 110 [place] [address] Social History Tobacco Use Types Packs/Day Years [...] often do you attend latter day or episcopalian serv ices? Patient declined 11/23/2022 Do you [...] Date Recorded Patient Health Questionnaire-2 Score 0 10/02/2024 Exercise Vital Sign Answer Date Recorde d [...] place to sleep or slept in a [place] health care facility (including now)? Patient refused 11/23/2022 Comments Unknown Sex and Gender Information Value Date Recorded Sex Assigned at Not on file Legal Sex Female 6:51 PM EDT Gender Identity Not on file Sexual Orientation Not on file documented as of this encounter Plan of Treatment Upcoming Encounters Date Type Department Care Team (Late st Contact Info) Description 11/19/2024 11:10 AM EDT Office Visit [facility] [address] [place] [address] Christ Ewing DO [address] [facility] [address] [place] [place], [place] [id number] documented as of this encounter Visit Diagnoses Not on filedocumented in this encounter Additional Health Concerns Assessment Noted Time PHQ-9 Depression Total Score: 0 02/07/20 24 9:00 AM EST documented as of this encounter Care Teams First Line Supervisor Relationship Specialty Start Date End Date Fransico Ng MD [address] [facility] 110 [place] [address] PCP - General Family Medicine 07/26/22 Fransico Ng MD [address] [facility] [address] [place] [address] PCP - Medical [place] MA 03/20/2403/19 documented as of this encounter
--- OUTSIDE RECORDS SUMMARY | 2024-11-05 13:50 | XMS_ITS | Encounter Summary ---
Author Organization [facility] Address [address] [place] [address] Care Team Providers Care Cottage Cheese Maker Name Role Phone Fransico Ng MD Primary Care Provider [phone] Fransico Ng MD Unavailable Fransico Ng MD Unavailable Fransico Ng MD Unavailable Encounter Details Date Type Department Care Team (Late st Contact Info) Description 11/24/2022 Abstract [facility] [place] [facility] [address] [facility] 110 [place] [phone] Lynn Mejia, TECHNICAL STAFF ASSISTANT [address] [facility] 110 [place] [address] Social History Tobacco Use Types [...] declined 11/23/2022 How often do you attend synagogue or advent serv ices? Patient declined 11/23/2022 Do you belong to any clubs o r organizations such as synagogue groups, unions, fraternal or athletic groups, or [...] place to sleep or slept in a prison (including now)? Patient refused 11/23/2022 Comments Unknown [...] AM EDT documented as of this encounter Functional Status * Over the past 2 weeks, how often have you been bothered by any of the following problems? Question Answer Date of Assessment Author Little interest or pleasure in doing things Not at all 11/24/2022 9:00 AM ROSE MARIE CORTEZ Feeling down, depressed, or hopeless Not at all 09/2022 9:00 AM EDT ROSE MARIE PEREYRA Patient Health Questionnaire-2 Score 0 09/2022 9:00 AM ROSE MARIE CORTEZ * Question Answer Date of Assessment Author Trouble falling or staying a sleep, or sleeping too much Not at all 11/24/2022 9:00 AM ROSE MARIE CORTEZ Feeling tired or having little energy Not at all 09/2022 9:00 AM ROSE MARIE CORTEZ Poor appetite or overeating Not at all 11/24/2022 9: 00 AM EDROSE MARIE SANCHEZ Feeling bad about yourself - or that you are a failure or have let yourself or your family down Not at all 11/24/2022 9:00 AM EDROSE MARIE SANCHEZ Trouble concentrating on thi ngs, such as reading the newspaper or watching television Not at all 11/24/2022 9:00 AM EDT ROSE MARIE PEREYRA Moving or speaking so slowly that other people could have noticed? Or the opposite - being so fidgety or restless that you have been moving around a lot more than usual. Not at all 11/24/2022 9:00 AM EDT ROSE MARIE PEREYRA Thoughts that you would be b lyle off or hurting yourself in some way Not at all 11/24/2022 9:00 AM EDT ROSE MARIE PEREYRA Patient Health Questionnaire-9 Score 0 09/2022 9:00 AM EDT ROSE MARIE PEREYRA documented as of this encounter Plan of Treatment Upcoming Encounters Date Type Department Care Team (Late st Contact Info) Description 11/19/2024 11:10 AM EDT Office Visit [facility] [place] [facility] [address] [facility] [place] [address] Christ Ewing DO [address] [facility] [place] [address] documented as of this encounter Visit Diagnoses Not on filedocumented in this encounter Additional Health Concerns Assessment Noted Time PHQ-9 Depression Total Score: 0 11/25/19 9:00 AM EDT documented as of this encounter Care Teams Cottage Cheese Maker Relationship Specialty Start Date End Date Fransico Ng MD [address] [facility] [address] [place] [address] PCP - General Family Medicine 07/26/22 Fransico Ng MD [address] [facility] [address] [place] [address] PCP - Emmanuel WEBSTER 11/18/22 03/19/23 Fransico Ng MD [address] [facility] [address] [place] [address] PCP - Devoted 03/20/23 03/19/24 Fransico Ng MD 112 [facility] 110 [place] [address] PCP - Medical [place] ELEANOR 03/20/2403/19 documented as of this encounter
--- OUTSIDE RECORDS SUMMARY | 2024-11-05 13:50 | XMS_ITS | Encounter Summary ---
Author Organization [facility] Address [address] [place] [address] Care Team Providers Care Food Product Inspector Name Role Phone Fransico Ng MD Primary Care Provider [phone] Fransico Ng MD Unavailable Fransico Ng MD Unavailable Fransico Ng MD Unavailable Encounter Details Date Type Department Care Team (Late st Contact Info) Description 02/15/2023 Abstract [facility] [place] [facility] [address] [facility] 110 [place] [phone] Fransico Ng MD [address] [facility] 110 [place] [address] Social History Tobacco Use Types [...] declined 11/23/2022 How often do you attend yarsanism or orthodoxy serv ices? Patient declined 11/23/2022 Do you belong to any clubs o r organizations such as yarsanism groups, unions, fraternal or athletic groups, or [...] place to sleep or slept in a mcc (including now)? Patient refused 11/23/2022 Comments Unknown [...] [facility] [address] Christ Ewing DO [address] [facility] [address] [place], [place] [address] documented as of this encounter Visit Diagnoses Not on filedocumented in this encounter Additional Health Concerns Assessment Noted Time PHQ-9 Depression Total Score: 0 11/25/19 9:00 AM EDT documented as of this encounter Care Teams Food Product Inspector Relationship Specialty Start Date End Date Fransico Ng MD [address] [facility] 110 [place] [address] PCP - General Family Medicine 07/26/22 Fransico Ng MD [address] [facility] [address] [place] [address] PCP - Emmanuel WEBSTER 11/18/22 03/19/23 Fransico Ng MD [address] [facility] [address] [place] [id number] PCP - Devoted 03/20/23 03/19/24 Fransico Ng MD 112 [facility] 110 [place], [place] [address] PCP - Medical [place] MA 03/20/2403/19 documented as of this encounter
--- OUTSIDE RECORDS SUMMARY | 2024-11-05 13:50 | XMS_ITS | Encounter Summary ---
Author Organization [facility] Address [address] [place] [address] Care Team Providers Care Application Integration Specialist Name Role Phone Fransico Ng MD Primary Care Provider [phone] Fransico Ng MD Unavailable Encounter Details Date Type Department Care Team (Late st Contact Info) Description 10/03/2024 Telephone [facility] [place] [employer] Family Medicine [address] [facility] 100 [place] [address] Namrata Concepcion, EYELET OPERATOR 112 [facility] 110 [place] [address] Social History Tobacco Use Types Packs/Day Years [...] How often do you attend taoist or orthodoxy serv ices? Patient declined 11/23/2022 [...] place to sleep or slept in a halfway (including now)? Patient refused 11/23/2022 Comments Unknown Sex and Gender Information Value Date Recorded Sex Assigned at Not on file Legal Sex Female 6:51 PM EDT Gender Identity Not on file Sexual Orientation Not on file documented as of this encounter Miscellaneous Notes * Telephone Encounter - HA RESENDEZ - 10/04/2024 10:47 AM EDT LM for pt to CB * Telephone Encounter - HA RESENDEZ - 10/03/2024 1:39 PM EDT LM for pt to CB * Telephone Encounter - Alanna Guzman - 10/03/2024 1:15 PM EDT Donna left a message. She needed to talk to someone about her referral for the GI. documented in this encounter Plan of Treatment Upcoming Encounters Date Type Department Care Team (Late st Contact Info) Description 11/19/2024 11:10 AM EDT Office Visit [facility] [address] [facility] [place] [address] Christ Ewing, [address] [place] [address] documented as of this encounter Visit Diagnoses Not on filedocumented in this encounter Additional Health Concerns Assessment Noted Time PHQ-9 Depression Total Score: 0 02/07/20 24 9:00 AM EST documented as of this encounter Care Teams Application Integration Specialist Relationship Specialty Start Date End Date Fransico Ng MD [address] [facility] 110 [place], [place] [phone] PCP - General Family Medicine 07/26/22 Fransico Ng MD [address] [place] [address] [place] [address] PCP - Medical [place] ELEANOR 03/20/2403/19 documented as of this encounter
--- OUTSIDE RECORDS SUMMARY | 2024-11-05 13:50 | XMS_ITS | Encounter Summary ---
Author Organization [facility] Address [address] [facility] [place] [address] Care Team Providers Care Dwarf Tree Grower Name Role Phone Fransico Ng MD Primary Care Provider [phone] Fransico Ng MD Unavailable Fransico Ng MD Unavailable Fransico Ng MD Unavailable Encounter Details Date Type Department Care Team (Late st Contact Info) Description 09/01/2022 Abstract [facility] [place] [facility] [address] [facility] 110 [place] [address] Fransico Ng MD [address] [facility] 110 [place] [address] Social History Tobacco Use Types Packs/Day Years Used Date Smoking Tobacco: Never Assessed Comments Unknown Sex and Gender Information Value Date Recorded Sex Assigned at Not on file Legal Sex Female 6:51 PM EDT Gender Identity Not on file Sexual Orientation Not on file documented as of this encounter Plan of Treatment Upcoming Encounters Date Type Department Care Team (Late Contact Info) Description 11/19/2024 11:10 AM EDT Office Visit [facility] [address] [facility] [place] [address] Christ Ewing DO [address] [facility] [place] [address] documented as of this encounter Visit Diagnoses Not on filedocumented in this encounter Care Teams Dwarf Tree Grower Relationship Specialty Start Date End Date Fransico Ng MD [address] [facility] 110 [place] [address] PCP - General Family Medicine 07/26/22 Fransico Ng MD [address] [facility] [address] [place] [address] PCP - Emmanuel WEBSTER 11/18/22 03/19/23 Fransico Ng MD [address] [facility] 110 [place] [address] PCP - Devoted 03/20/23 03/19/24 Fransico Ng MD [address] [facility] [address] [place] [address] PCP - Medical Rubén WEBSTER 03/20/2403/19 documented as of this encounter
--- OUTSIDE RECORDS SUMMARY | 2024-11-05 13:50 | XMS_ITS | Encounter Summary ---
Author Organization [facility] Address [address] [place] [address] Care Team Providers Care Tour Production Supervisor Name Role Phone Fransico Ng MD Primary Care Provider [phone] Fransico Ng MD Unavailable Fransico Ng MD Unavailable Fransico Ng MD Unavailable Encounter Details Date Type Department Care Team (Late st Contact Info) Description 02/21/2023 Orders Only [facility] [place] [facility]ince [address] [place] 110 [place] [address] A, Unknown Practice [address] [place] [address] Social History Tobacco Use Types Packs/Day Years [...] declined 11/23/2022 How often do you attend rastafarian or druze serv ices? Patient declined 11/23/2022 Do you belong to any clubs o r organizations such as rastafarian groups, unions, fraternal or athletic groups, or [...] EDT Office Visit [facility] [address] [facility] [place] [address] Christ Ewing DO [address] [facility] [address] [place], [place] [phone] documented as of this encounter Procedures Procedure Name Priority Date/Time Associated Diagnosis Comments MAMMOGRAM* Routine 02/21/2023 3:23 PM EST documented in this encounter Results * MAMMOGRAM* (02/21/2023 3:23 PM EST) Anatomical Region Laterality Modality Radiographic Shira ging us Unknown Practice A IMG XR PROCEDURES Final Resul t documented in this encounter Visit Diagnoses Not on filedocumented in this encounter Additional Health Concerns Assessment Noted Time PHQ-9 Depression Total Score: 0 11/25/19 9:00 AM EDT documented as of this encounter Care Teams Tour Production Supervisor Relationship Specialty Start Date End Date Fransico Ng MD [address] [facility] 110 [place] [address] PCP - General Family Medicine 07/26/22 Fransico Ng MD [address] [facility] [address] [place] [address] PCP - [place] MA 11/18/22 03/19/23 Fransico Ng MD [address] [facility] 110 [place] [address] PCP - Devoted 03/20/23 03/19/24 Fransico Ng MD [address] [facility] 110 [place] [address] PCP - Medical Rubén WEBSTER 03/20/2403/19 documented as of this encounter
--- OUTSIDE RECORDS SUMMARY | 2024-11-05 13:50 | XMS_ITS | Encounter Summary ---
Author Organization [facility] Address [address] [place] [address] Care Team Providers Care Laundry Sorter Name Role Phone Fransico Ng MD Primary Care Provider [phone] Fransico Ng MD Unavailable Fransico Ng MD Unavailable Fransico Ng MD Unavailable Encounter Details Date Type Department Care Team (Late st Contact Info) Description 11/30/2022 Orders Only [facility] [place] [facility] [address] [place] [address] A, Unknown Practice [address] [place] [address] Social History Tobacco Use Types [...] declined 11/23/2022 How often do you attend evangelical or cheondoism serv ices? Patient declined 11/23/2022 Do you belong to any clubs o r organizations such as evangelical groups, unions, fraternal or athletic groups, or [...] place to sleep or slept in a custodial (including now)? Patient refused 11/23/2022 Comments Unknown [...] 11:10 AM EDT Office Visit [facility] [address] [facility] [place] [address] Christ Ewing DO [address] [facility] [place] [address] documented as of this encounter Procedures Procedure Name Priority Date/Time Associated Diagnosis Comments ELECTROCARDIOGRAM REPORT Routine 023 10:21 AM EDT documented in this encounter Results * Electrocardiogram Report (11/24/2022 10:21 AM EDT) us Unknown Practice A IN CLINIC/BEDSIDE ORDERABLES Final Result documented in this encounter Visit Diagnoses Not on filedocumented in this encounter Additional Health Concerns Assessment Noted Time PHQ-9 Depression Total Score: 0 11/25/19 23 9:00 AM EDT documented as of this encounter Care Teams Laundry Sorter Relationship Specialty Start Date End Date Fransico Ng MD [address] [facility] 110 [place] [address] PCP - General Family Medicine 07/26/22 Fransico Ng MD [address] [facility] [facility] [address] [place] [address] PCP - [place] MA 11/18/22 03/19/23 Fransico Ng MD [address] [facility] [facility] [address] [place] [address] PCP - Devoted 03/20/23 03/19/24 Fransico Ng MD [address] [facility] 110 [place] [address] PCP - Medical [place] MA 03/20/2403/19 documented as of this encounter
--- OUTSIDE RECORDS SUMMARY | 2024-11-05 13:50 | XMS_ITS | Encounter Summary ---
Author Organization [facility] Address [address] [place] [address] Care Team Providers Care Production Superintendent Name Role Phone Fransico Ng MD Primary Care Provider [phone] Fransico Ng MD Unavailable Encounter Details Date Type Department Care Team (Latest Contact Info) Description 10/24/2024 Travel Social History Tobacco Use Types Packs/Day [...] declined 11/23/2022 How often do you attend restorationist or tenriism serv ices? Patient declined 11/23/2022 Do you belong to any clubs o r organizations such as restorationist groups, unions, fraternal or athletic groups, or [...] place to sleep or slept in a nursing home (including now)? Patient refused 11/23/2022 Comments Unknown [...] EDT Office Visit [facility] [address] [facility] [place] [address] Christ Ewing DO [address] [facility] [address] [place], [place] [address] documented as of this encounter Visit Diagnoses Not on filedocumented in this encounter Additional Health Concerns Assessment Noted Time PHQ-9 Depression Total Score: 0 02/07/20 24 9:00 AM EST documented as of this encounter Care Teams Production Superintendent Relationship Specialty Start Date End Date Fransico Ng MD [address] [email or web address] 110 [place] [address] PCP - General Family Medicine 07/26/22 Fransico Ng MD [address] [email or web address] 110 [place] [address] PCP - Medical [place] MA 03/20/2403/19 documented as of this encounter
--- OUTSIDE RECORDS SUMMARY | 2024-11-05 13:50 | XMS_ITS | Encounter Summary ---
Author Organization [facility] Address [address] [place] [address] Care Team Providers Care Retail Sales Specialist Name Role Phone Fransico Ng MD Primary Care Provider [phone] Fransico Ng MD Unavailable Encounter Details Date Type Department Care Team (Late st Contact Info) Description 07/03/2024 Abstract [facility] [address] [facility] 110 [place] [phone] Fransico Ng MD [address] [facility] 110 [place] [address] Social History Tobacco Use Types Packs/Day Years [...] declined 11/23/2022 How often do you attend gnosticism or tenriism serv ices? Patient declined 11/23/2022 Do you belong to any clubs o r organizations such as gnosticism groups, unions, fraternal or athletic groups, or [...] place to sleep or slept in a intermediate (including now)? Patient refused 11/23/2022 Comments Unknown [...] EDT Office Visit [facility] [address] [place] [address] Christ Ewing DO [address] [facility] [address] [place], [place] [address] documented as of this encounter Visit Diagnoses Not on filedocumented in this encounter Additional Health Concerns Assessment Noted Time PHQ-9 Depression Total Score: 0 02/07/20 24 9:00 AM EST documented as of this encounter Care Teams Retail Sales Specialist Relationship Specialty Start Date End Date Fransico Ng MD [address] [facility] 110 [place] [address] PCP - General Family Medicine 07/26/22 Fransico Ng MD [address] [facility] 110 [place] [address] PCP - Medical [place] MA 03/20/2403/19 documented as of this encounter
--- OUTSIDE RECORDS SUMMARY | 2024-11-05 13:50 | XMS_ITS | Clinical Summary ---
Author Organization [facility] Healthcare Address [address] [place] [address] Care Team Providers Care Seating Captain Name Role Phone Fransico Marroquin MD Primary Care Provider [phone] Fransico Marroquin MD Unavailable Allergies No known active allergies Medications Calcium Carbonate-Vitam in D (Oyster Shell Calcium/D) 500-5 MG-MCG tablet Take 1 tablet by mouth in the morning and 1 tablet in the evening. Take with meals. Active estradiol (Estrace) 0.1 MG/GM vaginal cream INSERT 1 gram VAGINALLY on MONDAY and MONDAY Active Multiple Vitamins-Minera ls (PRESERVISION AREDS PO) Take by mouth Active Multiple Vitamin (multivitamin) capsule Take 1 capsule by mouth Daily Active loratadine-pseu doephedrine ER (Claritin-D 24 Hour) 10-240 MG 24 hr tabletIndicatio ns:Chronic sinusitis, unspecified location,Season al allergic rhinitis due to pollen Take 1 tablet by mouth Daily Do not crush, chew, or split. 30 tablet 11 08/15/19 25 026 Active mirabegron ER (Myrbetriq) 50 MG 24 hr tabletIndicatio ns:OAB (overactive bladder) Take 1 tablet (50 mg) by mouth Daily 90 tablet 3 10/23/19 25 Active docusate sodium (Colace) 100 MG capsule Take 100 mg by mouth in the morning and 100 mg before bedtime. Active saccharomyces boulardii (Florastor) 250 MG capsule Take 250 mg by mouth in the morning and 250 mg before bedtime. Active estradiol (Estrace) 0.1 MG/GM vaginal creamIndication s:Vaginal atrophy 2g vaginal daily for 2 weeks, then 2 times weekly following initial 2 weeks 42.5 g 11/05/19 Active mirabegron ER (Myrbetriq) 50 MG 24 hr tablet Take 50 mg by mouth Daily 04/26/19 025 Discontinued(Re order) metroNIDAZOLE (Flagyl) 500 MG tablet Take 500 mg by mouth in the morning and 500 mg in the evening and 500 mg before bedtime. 09/24/19 025 Discontinued(Si de effects) ciprofloxacin (Cipro) 500 MG tabletIndicatio ns:Diverticulit is Take 1 tablet (500 mg) by mouth in the morning and 1 tablet (500 mg) before bedtime. Do all this for 10 days. 20 tablet 10/23/19 025 Discontinued fluconazole (Diflucan) 150 MG tabletIndicatio ns:Vaginal itching,Yeast infection Take 1 tablet (150 mg) by mouth 1 (one) time for 1 dose 1 tablet 1 11/05/19 025 Active Problems Problem Noted Date Diagnosed Date Diverticulosis of colon 04/08/2024 Generalized abdominal pain 04/08/2024 Tubular adenoma of colon 04/08/2024 Assessment & Plan (04/08/2024 10:43 AM EST): Consult with GI when repeat colonoscopy should be OAB (overactive bladder) 02/07/2024 Unspecified urethral stricture, female Urge incontinence 02/07/2024 Urinary frequency 02/07/2024 Vaginal atrophy 02/07/2024 Diverticulosis 02/07/2024 Former smoker 02/07/2024 Early dry stage nonexudative age-related macular degeneration of both eyes 02/07/2024 Diverticulitis 03/01/2023 Assessment & Plan (10/22/2024 2:09 PM EDT): Add Probiotic to help replenish the good bacteria that are destroyed by the Antibiotics Florastor Florajen Align or try Activia in Yogurt Probiotics reduce the risk of antibiotic induced diarrhea Needs f/up with Flask Pusher No fast twitching exercises due to Atbx Assessment & Plan (04/08/2024 10:39 AM EST): Consider CT scan Add Probiotic to help replenish the good bacteria that are destroyed by the Antibiotics Florastor Florajen Align or try Activia in Yogurt Probiotics reduce the risk of antibiotic induced diarrhea Watch for severe pain and fevers Prolapse of urethra 03/01/2023 Snapping thumb syndrome 03/01/2023 Bruxism 11/23/2022 Chronic sinusitis 11/23/2022 Difficulty walking 11/23/2022 Fibrocystic breast changes 11/23/2022 History of hysterectomy 11/23/2022 Other headache syndrome 11/23/2022 Pure hypercholesterolemia 11/23/2022 Sacroiliitis, not elsewhere classified 3 Allergic rhinitis 07/04/2007 Chronic obstructive pulmonary disease, unspecifi ed 07/04/2007 Assessment & Plan (04/08/2024 10:39 AM EST): No tobacco since 2008 No inhalers Resolved Problems Problem Noted Date Diagnosed Date Resolved Date Abnormal urinalysis 02/07/2024 02/07/20 24 Hyperlipidemia 02/07/2024 02/07/2024 Seasonal allergies 11/23/2022 Tobacco use disorder 07/04/2007 024 Encounters Date Type Department Care Team Description 11/04/2024 9:40 AM EDT Consult [facility] [address] [place] [address] [place] [phone] Christ Ewing DO Bilateral ovarian cysts; Vaginal itching; Yeast infection; Vaginal atrophy 10/24/2024 Travel 10/22/2024 2:00 PM EDT Office Visit [facility] [address] [address] [place] [phone] Fransico Marroquin MD Diverticulitis (Primary Dx); OAB (overactive bladder) 10/22/2024 Travel 10/17/2024 Abstract [facility] [address] [place] [phone] Fransico Marroquin MD 10/07/2024 Abstract [facility] [address] [place] [address] Fransico Marroquin MD 10/07/2024 [facility] [address] [place] [address] Fransico Marroquin MD 10/03/2024 Telephone [facility] [address] [facility] [address] [place] [address] Namrata Concepcion, FLORENCIA 10/02/2024 9:00 AM EDT [facility] [address] [place] [address] Namrata Concepcion, FLORENCIA Diverticulitis (Primary Dx); Bilateral ovarian cysts 10/02/2024 Abstract [facility] [address] [facility] [address] [place] [address] Fransico Marroquin MD 10/02/2024 Bamboo flowsheet [facility] [address] [facility] [address] [place] [address] Namrata Concepcion, FLORENCIA 10/02/2024 Travel 08/22/2024 Orders Only [facility] [address] [place] [address] Dayana Franklin LPN Encounter for screening mammogram for malignant neoplasm of breast 08/13/2024 Telephone [facility] [address] [facility] [address] [place] [address] Fransico Marroquin MD 08/13/2024 Refill [facility] [place] [address] Carin Rowe Seasonal allergic rhinitis due to pollen 08/09/2024 Telephone [facility] [address] [place] [address] Fransico Marroquin MD from Last 3 Months Family History Medical History Relation Name Comments Cancer Brother Aron Chavarria Stroke Mother Relation Name Status Comments Brother Aron Chavarria Father Alive Mother Alive Social History Tobacco Use Types Packs/Day Years Used Date Smoking Tobacco: Former Cigarettes 1 34 1 976 - 2010 Smokeless Tobacco: Never Tobacco Cessation:Counseling Given: Yes Alcohol Use Standard Drinks/Week Comments Never 0 [...] declined 11/23/2022 How often do you attend pentecostalism or amish serv ices? Patient declined 11/23/2022 Do you belong to any clubs o r organizations such as pentecostalism groups, unions, fraternal or athletic groups, or [...] detention (including now)? Patient refused 11/23/2022 Comments No Sex and Gender Information Value Date Recorded Sex Assigned at Not on file Legal Sex Female 6:51 PM EDT Gender Identity Not on file Sexual Orientation Not on file Last Filed Vital Signs Vital Sign Reading Time Taken Comments Blood Pressure 120/78 11/04/2024 9:49 AM EDT Pulse 108 10/22/2024 1:54 PM EDT Temperature 36.7 C (98.1 F) 05/30/2024 9:20 AM EDT Respiratory Rate 17 10/02/2024 8:54 AM EDT Oxygen Saturation 98% 10/22/2024 1:54 PM EDT Inhaled Oxygen Concentration - - Weight 61.6 kg (135 lb 12.8 oz) 11/04/2024 9:49 AM EDT Height 157.5 cm (5' 2 ) 10/22/2024 1:54 PM EDT Body Mass Index 24.84 10/22/2024 1:54 PM EDT Plan of Treatment Upcoming Encounters Date Type Department Care Team (Late st Contact Info) Description 11/19/2024 11:10 AM EDT Office Visit [facility] [address] [place] [address] Christ Ewing DO [address] [facility] [place] [address] Health Maintenance Due Date Last Done Comments CT Colonography 1955 FIT-DNA 1955 FIT 1955 FOBT 1955 Sigmoidoscopy 1955 Pneumococcal Vaccine: 65+ Ye ars (1 of 2 - PCV) 1976 Influenza Vaccine (#1) 2024 Medicare Annual Wellness (AWV) 02/06/2025 1 04/08/2023, 11/24/2022, 12/09/2020 Mammogram 02/25/2025 02/26/2024, 12/0 07/2022, 02/21/2023, Additional history exists Colonoscopy 02/15/2033 02/15/2023, 02/01/2016 Colorectal Cancer Screening 02/15/2033 Cervical Cancer Screening Discontinued HPV/Cotest Discontinued 12/09/2020 Pap Smear Discontinued Procedures Procedure Name Priority Date/Time Associated Diagnosis Comments CREATININE Routine 10/22/2024 2:13 PM EDT Diverticulitis MM TOMOSYNTHESIS SCREENING BI 02/26/2024 3:47 PM EST THINPREP TIS PAP REFLEX HPV MRNA E6/E7 (00354) Routine 12/09/2020 COLONOSCOPY Routine 02/01/2016 12:00 PM EST from Last 3 Months or Most Recently Relevant to Health Maintenance Results * Creatinine, Serum (10/22/2024 2:13 PM EDT) Creatinine 0.56 0.50 - 1.05 mg/dL [facility] EGFR 100 > OR = 60 mL/min/1.73m 2 [facility] Blood Venous blood specimen / Unknown 10/22/2024 2:13 PM EDT 10/22/2024 2:13 PM EDT Narrative Resulting Agency Comment Performing Organization Information Site ID: [id number] Name: [facility] Address: [address] [place] [address], [address] [place] [id number] Director: Richard Mcintyre MD us Fransico Marroquin MD LAB BLOOD ORDERABLES Final Resul t [facility] * MM TOMOSYNTHESIS SCREENING BI (02/26/2024 3:47 PM EST) Anatomical Region Laterality Modality Other 02/26/2024 3:47 PM EST Narrative 02/26/2024 3:48 PM EST [place] [id number] Mammography Report Signed Patient: Betzaida Hardin MR#: [id number] : 1955 Acct:[id number] Age/Sex: 68 / F ADM Date: 02/26/24 Loc: MAMMO Attending Dr: FRANSICO MARROQUIN Ordering Physician: FRANSICO MARROQUIN Results: Date of Service: 02/26/24 Follow Up: Procedure(s): MM tomosynthesis screening BI Accession Number(s): [id number] cc: FRANSICO MARROQUIN Patient Name: BETZAIDA HARDIN MR#: [id number] : 1955 Exam Date: 02/26/2024 Ordering Doctor: DR FRANSICO MARROQUIN M.D. RADIOLOGY REPORT PROCEDURE: MM TOMOSYNTHESIS [...] pancreatic cancer at age 62. LOCATION: [facility] BREAST COMPOSITION: The breasts are heterogeneously [...] Signed By: 02/26/24 1548 DD/ 1547 TD/TT: Recreation Technician: Procedure Note Radiology, Radiologist, MD - 02/26/2024 The [place] [id number] Mammography Report Signed Patient: Betzaida Hardin CMR#: [id number] : 1955cct:[id number] Age/Sex: 68 / FADM Date: 02/26/24 Loc: MAMMO Attending Dr: FRANSICO MARROQUIN Ordering Physician: FRANSICO MARROQUINResults: Date of Service: 02/26/24Follow Up: Procedure(s): MM tomosynthesis screening BI Accession Number(s): [id number] cc: FRANSICO MARROQUIN Patient Name: BETZAIDA HARDIN MR#: [id number] : 1955 Exam Date: 02/26/2024 Ordering Doctor: DR FRANSICO MARROQUIN M.D. RADIOLOGY REPORT PROCEDURE: MM TOMOSYNTHESIS SCREENING BI COMPARISON: MM TOMOSYNTHESIS SCREENING BI, 02/21/2023. MG MAMM [id number] CRICKET CAD, 01/28/2022. MG MAMM SCREEN 3D [...] pancreatic cancer at age 62. LOCATION: [facility] BREAST COMPOSITION: The breasts are heterogeneously [...] M.D. Signed By:02/26/24 1548 DD/ 1547 TD/TT: Recreation Technician: Fransico Marroquin MD [facility] Final Result * THINPREP TIS PAP REFLEX HPV MRNA E6/E7 (71592) (12/09/2020) CLINICAL INFORMATION: Normal exam [facility] LMP: TVH [facility] PREV. PAP: 5 YEARS [facility] PREV. BX: NO [facility] SOURCE: Vagina [facility] STATEMENT OF ADEQUACY: SATISFACTORY FOR EVALUATION [facility] INTERPRETATION/RES ULT: SEE COMMENT [facility] Comment: Negative for intraepithelial lesion or malignancy. Atrophic pattern; predominantly parabasal cells COMMENT: This Pap test has been evaluated with computer assisted technology. [facility] SLPS: SEE COMMENT [facility] Comment: [facility], SCT(ASCP) CT screening location: [place] [address]. REVIEW SLPS: SEE COMMENT [facility] Comment: [facility], CT(ASCP) CT screening location: [place] [address]. COMMENT SEE COMMENT [facility] Comment: EXPLANATORY NOTE: The Pap is a screening test for cervical cancer. It is not a diagnostic test and is subject to false negative and false positive results. It is most reliable when a satisfactory sample, regularly obtained, is submitted with relevant clinical findings and history, and when the Pap result is evaluated along with historic and current clinical information. 12/09/2020 Craig Stafford [facility] Final Result [facility] * Colonoscopy (02/01/2016 12:00 PM EST) Anatomical Region Laterality Modality Endoscopy 02/01/2016 12:0 0 PM EST Narrative 02/04/2016 12:00 PM EST PERFORMED AT [facility] LOCATION:[id number] diverticulosis, polyps Procedure Note CONVERSION, GENERIC - 08/04/2022 PERFORMED AT [facility] LOCATION:[id number] diverticulosis, polyps Fransico Marroquin MD ENDOSCOPY PROCEDURE ORDERABLES F inal Result from Last 3 Months or Most Recently Relevant to Health Maintenance Insurance [employer] MEDIC[employer] Care Teams Seating Captain Relationship Specialty Start Date End Date Fransico Marroquin MD [address] [facility] 110 [place], [place] [phone] PCP - General Family Medicine 07/26/22 Fransico Marroquin MD [address] [facility] 110 [place] [address] PCP - Medical [facility] 03/20/2403/19
--- OUTSIDE RECORDS SUMMARY | 2024-11-05 13:50 | XMS_ITS | Encounter Summary ---
Author Organization [facility] Address [address] [place] [address] Care Team Providers Care Crossband Layer Name Role Phone Fransico Ng MD Primary Care Provider [phone] Fransico Ng MD Unavailable Encounter Details Date Type Department Care Team (Late st Contact Info) Description 10/02/2024 [facility] [address] [facility] [address] [place] [phone] Fransico Ng MD [address] [facility] [address] [place] [address] Social History Tobacco Use Types Packs/Day Years [...] declined 11/23/2022 How often do you attend voodoo or christian serv ices? Patient declined 11/23/2022 Do you belong to any clubs o r organizations such as voodoo groups, unions, fraternal or athletic groups, or [...] pleasure in doing things Not at all 10/02/2024 8:48 AM EDT HA RESENDEZ Feeling down, depressed, or hopeless Not at all 09/17 8:48 AM EDT HA RESENDEZ Patient Health Questionnaire-2 Score 0 09/17 8:48 AM EDT HA RESENDEZ documented as of this encounter Plan of Treatment Upcoming Encounters Date Type Department Care Team (Late st Contact Info) Description 11/19/2024 11:10 AM EDT Office Visit [facility] [address] [facility] [place] [address] Christ Ewing DO [address] [facility] [place] [address] documented as of this encounter Visit Diagnoses Not on filedocumented in this encounter Additional Health Concerns Assessment Noted Time PHQ-9 Depression Total Score: 0 02/07/20 24 9:00 AM EST documented as of this encounter Care Teams Crossband Layer Relationship Specialty Start Date End Date Fransico Ng MD [address] [facility] 110 [place] [address] PCP - General Family Medicine 07/26/22 Fransico Ng MD [address] [address] PCP - Medical [place] 03/20/2403/19 documented as of this encounter
--- OUTSIDE RECORDS SUMMARY | 2024-11-05 13:50 | XMS_ITS | Encounter Summary ---
Author Organization [facility] Address [address] [place] [address] Care Team Providers Care Mobile Paint Specialist Name Role Phone Fransico Ng MD Primary Care Provider [phone] Fransico Ng MD Unavailable Fransico Ng MD Unavailable Fransico Ng MD Unavailable Encounter Details Date Type Department Care Team (Late st Contact Info) Description 03/06/2023 [facility] [address] [place] [address] [place] [address] A, Unknown Practice [address] [place] [address] Social History Tobacco Use Types [...] declined 11/23/2022 How often do you attend orthodoxy or baptism serv ices? Patient declined 11/23/2022 Do you belong to any clubs o r organizations such as orthodoxy groups, unions, fraternal or athletic groups, or [...] 11:10 AM EDT Office Visit [facility] [address] [facility] [place] [address] Christ Ewing DO [address] [facility] [address] [place], [place] [phone] documented as of this encounter Procedures Procedure Name Priority Date/Time Associated Diagnosis Comments SCANNED LABS Routine 03/06/2023 8:50 AM EST documented in this encounter Results * SCANNED LABS (03/06/2023 8:50 AM EST) us Unknown Practice A LAB CHG PERFORMABLES Final Re sult documented in this encounter Visit Diagnoses Not on filedocumented in this encounter Additional Health Concerns Assessment Noted Time PHQ-9 Depression Total Score: 0 11/25/19 23 9:00 AM EDT documented as of this encounter Care Teams Mobile Paint Specialist Relationship Specialty Start Date End Date Fransico Ng MD [address] [facility] [address] [place] [address] PCP - General Family Medicine 07/26/22 Fransico Ng MD [address] [place] [address] [place] [address] PCP - Emmanuel WEBSTER 11/18/22 03/19/23 Fransico Ng MD [address] [place] [address] [place] [address] PCP - Devoted 03/20/23 03/19/24 Fransico Ng MD [address] [facility] [address] [place] [address] PCP - Medical Rubén WEBSTER 03/20/2403/19 documented as of this encounter
--- OUTSIDE RECORDS SUMMARY | 2024-11-05 13:50 | XMS_ITS | Encounter Summary ---
Author Organization [facility] Address [address] [place] [address] Care Team Providers Care Floor Finisher Name Role Phone Fransico Ng MD Primary Care Provider [phone] Fransico Ng MD Unavailable Fransico Ng MD Unavailable Encounter Details Date Type Department Care Team (Late st Contact Info) Description 02/07/2024 Abstract [facility] [place] [facility] [address] [facility] 110 [place] [address] Fransico Ng MD 112 [facility] 110 [place] [address] Social History Tobacco Use Types [...] declined 11/23/2022 How often do you attend taoism or sabianist serv ices? Patient declined 11/23/2022 Do you belong to any clubs o r organizations such as taoism groups, unions, fraDATY or athletic groups, or school groups? Patient [...] pleasure in doing things Not at all 02/07/2024 9:00 AM Dayana Morales LP N Feeling down, depressed, or hopeless Not at all 02/07/2024 9:00 AM Dayana Morales LP N Patient Health Questionnaire -2 Score 0 02/07/2024 9:00 AM Dayana Morales LP N * Question Answer Date of Assessment Author Trouble falling or staying asleep, or sleeping too much Not at all 02/07/2024 9:00 AM Rukhsana Morales LPN Feeling tired or having hina le energy Not at all 02/07/2024 9:00 AM Dayana Morales LP N Poor appetite or overeating Not at all 02/07/2024 9: 00 AM Dayana Morales LPN Feeling bad about yourself - or that you are a failure or have let yourself or your family down Not at all 02/07/2024 9:00 AM Dayana Morales LPN Trouble concentrating on thi ngs, such as reading the newspaper or watching television Not at all 02/07/2024 9:00 AM EST Dayana Franklin, LP N Moving or speaking so slowly that other people could have noticed? Or the opposite - being so fidgety or restless that you have been moving around a lot more than usual. Not at all 02/07/2024 9:00 AM EST Dayana Franklin, LP N Thoughts that you would be better off or hurting yourself in some way Not at all 02/07/2024 9:00 AM EST Dayana Franklin L PN Patient Health Questionnaire -9 Score 0 02/07/2024 9:00 AM EST Dayana Franklin LP N documented as of this encounter Plan of Treatment Upcoming Encounters Date Type Department Care Team (Late st Contact Info) Description 11/19/2024 11:10 AM EDT Office Visit [facility] [address] [facility] [place] [phone] Christ Ewing DO [address] [facility] [address] [place] [place], [place] [id number] documented as of this encounter Visit Diagnoses Not on filedocumented in this encounter Additional Health Concerns Assessment Noted Time PHQ-9 Depression Total Score: 0 02/07/20 9:00 AM EST documented as of this encounter Care Teams Floor Finisher Relationship Specialty Start Date End Date Fransico Ng MD [address] [facility] 110 [place] [address] PCP - General Family Medicine 07/26/22 Fransico Ng MD [address] [place] [address] [place] [address] PCP - Devoted 03/20/23 03/19/24 Fransico Ng MD [address] [place] [address] [place] [address] PCP - Medical [place] 03/20/2403/19 documented as of this encounter
--- OUTSIDE RECORDS SUMMARY | 2024-11-05 13:51 | XMS_ITS | Encounter Summary ---
Author Organization [facility] Address [address] [place] [address] Care Team Providers Care Home Service Technician Name Role Phone Fransico Ng MD Primary Care Provider [phone] Fransico Ng MD Unavailable Encounter Details Date Type Department Care Team (Late st Contact Info) Description 10/17/2024 [facility] [address] [facility] 110 [place] [address] Fransico Ng MD [address] [facility] 110 [place] [address] Social History Tobacco Use Types Packs/Day Years [...] declined 11/23/2022 How often do you attend quaker or mu-ism serv ices? Patient declined 11/23/2022 Do you belong to any clubs o r organizations such as quaker groups, unions, fraternal or athletic groups, or [...] EDT Office Visit [facility] [address] [place] [address] Christ Ewing DO [address] [facility] [address] [place], [place] [phone] documented as of this encounter Visit Diagnoses Not on filedocumented in this encounter Additional Health Concerns Assessment Noted Time PHQ-9 Depression Total Score: 0 02/07/20 24 9:00 AM EST documented as of this encounter Care Teams Home Service Technician Relationship Specialty Start Date End Date Fransico Ng MD [address] [facility] 110 [place] [address] PCP - General Family Medicine 07/26/22 Fransico Ng MD [address] [facility] 110 [place] [address] PCP - Medical [place] 03/20/2403/19 documented as of this encounter
--- OUTSIDE RECORDS SUMMARY | 2024-11-05 13:51 | XMS_ITS | Clinical Summary ---
Author Organization [facility] Address [address] [place] [address], [address] [place] [address] Care Team Providers Care C 40A Crew Chief Name Role Phone Fransico Ng MD Primary Care Provider Allergies No known active allergies Medications No known medications Family History Medical History Relation Name Comments Cancer Brother Relation Name Status Comments Brother Social History Tobacco Use Types Packs/Day Years Used Date Smoking Tobacco: Former Smokeless Tobacco: Never Comments Unknown Sex and Gender Information Value Date Recorded Sex Assigned at Not on file Legal Sex Female 12:13 AM EST Gender Identity Not on file Sexual Orientation Not on file Last Filed Vital Signs Vital Sign Reading Time Taken Comments Blood Pressure - - Pulse - - Temperature 37.1 C (98.8 F) 04/08/2019 9:40 AM EST Respiratory Rate - - Oxygen Saturation - - Inhaled Oxygen Concentration - - Weight 60.8 kg (134 lb) 04/08/2019 9:40 AM EST Height 160 cm (5' 3 ) 04/08/2019 9:40 AM EST Body Mass Index 23.74 04/08/2019 9:40 AM EST Plan of Treatment Not on file Care Teams C 40A Crew Chief Relationship Specialty Start Date End Date Fransico Ng MD PCP - General Family Medicine 04/01/19
--- OUTSIDE RECORDS SUMMARY | 2024-11-05 13:51 | XMS_ITS | Encounter Summary ---
Author Organization [facility] Address [address] [place] [address] Care Team Providers Care Terrapin Fisher Name Role Phone Iván Marroquin MD Primary Care Provider [phone] Iván Marroquin MD Unavailable Iván Marroquin MD Unavailable Iván Marroquin MD Unavailable Encounter Details Date Type Department Care Team (Late st Contact Info) Description 02/21/2023 Clinisync Result Encounter [facility] Department Unsolicited Iván Marroquin MD [address] [place] [address] Social History Tobacco Use Types Packs/Day Years [...] How often do you attend taoist or taoist serv ices? Patient declined 11/23/2022 Do you [...] place to sleep or slept in a [facility] (including now)? Patient refused 11/23/2022 Comments Unknown [...] EDT Office Visit [facility] [address] [place] [id number] Christ Ewing DO [address] [place] [address] documented as of this encounter Procedures Procedure Name Priority Date/Time Associated Diagnosis Comments MM TOMOSYNTHESIS SCREENING BI 02/21/2023 3:07 PM EST documented in this encounter Results * MM TOMOSYNTHESIS SCREENING BI (02/21/2023 3:07 PM EST) Anatomical Region Laterality Modality Other 02/21/2023 3:07 PM EST Narrative 02/21/2023 3:08 PM EST The [address] [address] Mammography Report Signed Patient: Betzaida Jerez MR#: [id number] : 1955 Acct:[id number] Age/Sex: 67 / F ADM Date: 02/21/23 Loc: MAMMO Attending Dr: IVÁN MARROQUIN Ordering Physician: IVÁN MARROQUIN Results: Date of Service: 02/21/23 Follow Up: Procedure(s): MM tomosynthesis screening BI Accession Number(s): [id number] cc: IVÁN MARROQUIN Patient Name: BETZAIDA JEREZ MR#: [id number] : 1955 Exam Date: 02/21/2023 Ordering Doctor: DR IVÁN MARROQUIN M.D. RADIOLOGY REPORT PROCEDURE: MM TOMOSYNTHESIS SCREENING BI COMPARISON: MG MAMM SCREEN 3D CRICKET CAD, 01/28/2022. MG MAMM SCREEN 3D CRICKET CAD, 12/23/2020. MG MAMM SCREEN CRICKET W CAD, 05/22/2018. MAMMO CRICKET SCREEN, 01/19/2012. INDICATIONS: Screening Calculator Name NCI Breast Cancer Risk Assessment Tool 5 Year Breast Cancer Risk 1.80% Lifetime Breast Cancer Risk 6.60% Personal Breast Cancer No Personal Ovarian Cancer No Treatments None Family Cancers Brother with bladder/prostate cancer at age 51; Aunt-paternal with breast cancer at age 50; Aunt-maternal with pancreatic cancer at age 60. LOCATION: The [facility] BREAST COMPOSITION: Heterogeneously dense,which may obscure small masses. FINDINGS: DIAGNOSTIC [...] BIOPSIED. Dictated by: Ian Bills M.D. on 02/21/2023 at 15:05 Approved by: Ian Bills M.D. on 02/21/2023 at 15:07 Dictated By: Ian Bills M.D. Signed By: 02/21/23 1508 DD/ 1507 TD/TT: Inspection Clerk: Procedure Note Radiology, Radiologist, MD - 02/21/2023 [place] [address] Mammography Report Signed Patient: Betzaida Jerez CMR#: [id number] : 8Acct:[id number] Age/Sex: 67 / FADM Date: 02/21/23 Loc: MAMMO Attending Dr: IVÁN MARROQUIN Ordering Physician: IVÁN MARROQUINResults: Date of Service: 02/21/23Follow Up: Procedure(s): MM tomosynthesis screening BI Accession Number(s): [id number] cc: IVÁN MARROQUIN Patient Name: BETZAIDA JEREZ MR#: [id number] : 1955 Exam Date: 02/21/2023 Ordering Doctor: DR IVÁN MARROQUIN M.D. RADIOLOGY REPORT PROCEDURE: MM TOMOSYNTHESIS SCREENING BI COMPARISON: MG MAMM SCREEN 3D CRICKET CAD, 01/28/2022. MG MAMM SCREEN 3DBIL CAD, 12/23/2020. MG MAMM SCREEN CRICKET W CAD, 05/22/2018. MAMMO CRICKET SCREEN, 01/19/2012. INDICATIONS: Screening Calculator Name NCI Breast Cancer Risk Assessment Tool 5 Year Breast Cancer Risk 1.80% Lifetime Breast Cancer Risk 6.60% Personal Breast Cancer No Personal Ovarian Cancer No Treatments None Family Cancers Brother with bladder/prostate cancer at age 51; Aunt-paternal with breast cancer at age 50; Aunt-maternal with pancreatic cancer at age 60. LOCATION: The [facility] BREAST COMPOSITION: Heterogeneously dense,which may obscure smallmasses. FINDINGS: DIAGNOSTIC CATEGORY 1--NEGATIVE. RIGHT BREAST: No significant suspicious finding. No significant changehas occurred. LEFT BREAST: No significant suspicious finding. No significant changehas occurred. RECOMMENDATIONS: ROUTINE MAMMOGRAM AND CLINICAL EVALUATION IN 12 MONTHS. PLEASE NOTE: A NORMAL MAMMOGRAM DOES NOT EXCLUDE THE POSSIBILITY OFBREAST CANCER. A CLINICALLY SUSPICIOUS PALPABLE LUMP SHOULD BE BIOPSIED. Dictated by: Ian Bills M.D. on 02/21/2023 at 15:05 Approved by: Ian Bills M.D. on 02/21/2023 at 15:07 Dictated By: Ian Bills M.D. Signed By:02/21/23 1508 DD/ 1507 TD/TT: Inspection Clerk: us Iván Marroquin MD [facility] Final Result documented in this encounter Visit Diagnoses Not on filedocumented in this encounter Additional Health Concerns Assessment Noted Time PHQ-9 Depression Total Score: 0 11/25/19 9:00 AM EDT documented as of this encounter Care Teams Terrapin Fisher Relationship Specialty Start Date End Date Iván Marroquin MD [address] [facility] [address] [place] [address] PCP - General Family Medicine 07/26/22 Iván Marroquin MD [address] [facility] [address] [place] [address] PCP - Emmanuel WEBSTER 11/18/22 03/19/23 Iván Marroquin MD [address] [facility] [address] [place] [address] PCP - Devoted 03/20/23 03/19/24 Iván Marroquin MD [address] [facility] [address] [place] [address] PCP - Medical Rubén WEBSTER 03/20/2403/19 documented as of this encounter
== END 2024-11-05 13:46 | disposition home or self-care (01) ==
LOC: US 13:47
PROVIDERS: PCP Family Medicine; Visit Provider Obstetrics & Gynecology
DX: N83.201 Unspecified ovarian cyst, right side (principal); N83.202 Unspecified ovarian cyst, left side
CPT/HCPCS: 76830; 76856

== ENCOUNTER 2025-02-26 09:37 | Outpatient (OUT) | payer MEDICARE, SELFPAY ==
--- NOTE | 2025-02-26 09:42 | MM_ITS ---
Patient Name: JEANIE HARDIN MR#: [id number] : 1955 Exam Date: 02/26/2025 Ordering Doctor: DR IVÁN MARROQUIN M.D. RADIOLOGY REPORT PROCEDURE: MM TOMOSYNTHESIS SCREENING BI COMPARISON: MM TOMOSYNTHESIS SCREENING BI, 02/26/2024. MM TOMOSYNTHESIS SCREENING BI, 02/21/2023. MG MAMM SCREEN 3D CRICKET CAD, 01/28/2022. MAMMO CRICKET SCREEN, 01/19/2012. INDICATIONS: Screening Calculator Name NCI Breast Cancer Risk Assessment Tool 5 Year Breast Cancer Risk 1.80% Lifetime Breast Cancer Risk 6.10% Personal Breast Cancer No Personal Ovarian Cancer No Treatments None Family Cancers Brother with bladder/prostate cancer at age 51; Aunt-paternal with breast cancer at age 50; Aunt-maternal with pancreatic cancer at age 60. LOCATION: The [facility] BREAST COMPOSITION: The breasts are heterogeneously dense, which may obscure small masses. FINDINGS: RIGHT BREAST: No significant suspicious finding. Benign-appearing calcifications are present. Benign-appearing lymph nodes are noted along the chest wall. LEFT BREAST: No significant suspicious finding. Benign-appearing calcifications are present. Benign-appearing lymph nodes are noted along the chest wall. DIAGNOSTIC CATEGORY 2--BENIGN FINDING. NO CHANGE FROM COMPARISON. RECOMMENDATIONS: ROUTINE MAMMOGRAM AND CLINICAL EVALUATION IN 12 MONTHS. Dictated by: Karsten Gaxiola MD on 02/26/2025 at 14:45 Approved by: Karsten Gaxiola MD on 02/26/2025 at 14:51
--- OUTSIDE RECORDS SUMMARY | 2025-02-26 09:50 | XMS_ITS | CCD ---
Author Organization [facility] CliniSyme Care Team Providers Care Manager Implementation Name Role Phone CARA, DR MINOR Primary Care Unavailable ASIM, DR ANEL Duncan Admitting Unavailable ASIM, DR ANEL Duncan Attending Unavailable RAMON BALDERAS Consulting Unavailable CARA, DR MINOR Admitting Unavailable CARA, DR MINOR Attending Unavailable CARA, DR MINOR Primary Care Unavailable CARA, DR MINOR Consulting Unavailable COLLINSTON, DR JUDY Main Consulting Unavailable Ilana Montero Unavailable Geneva Thomas Unavailable MD Iván Marroquin Primary Care Provider [phone] MD Geneva Thomas Attending Provider [phone] IVÁN MARROQUIN Referring Unavailable IVÁN MARROQUIN Primary Care Unavailable IVÁN MARROQUIN Primary Care Physician Iván Marroquin MD Primary Care Provider Iván Marroquin MD Unavailable Petey STONER Attending Unavailable Petey STONER Attending Unavailable HERBIE, Petey Duncan Attending Unavailable Petey STONER Attending Unavailable Petey STONER Admitting Unavailable Petey STONER Attending Unavailable Petey STONER Referring Unavailable Petey STONER Attending Unavailable Iván Marroquin MD Unavailable Namrata Frank CNP Unavailable [phone] Namrata Frank APRN Unavailable [phone] YUMI PAULA Attending Unavailable NAMRATA FRANK Referring Unavailable SHIRLEY MANTILLA Attending Unavailable NAMRATA FRANK Attending Unavailable NAMRATA FRANK Attending Unavailable IVÁN MARROQUIN Attending Unavailable CHRIST EWING Attending Unavailable NAMRATA FRANK Referring Unavailable CHRIST EWING Attending Unavailable JAMILAH JUNE Attending Unavailable IVÁN MARROQUIN Attending Unavailable IVÁN MARROQUIN Referring Unavailable Iván Marroquin MD Primary Care Provider Coco Reilly APRN Attending Provider Iván Marroquin MD Unavailable Iván Marroquin MD Unavailable Coco Reilly Attending Unavailable Coco Reilly Admitting Unavailable Medications Current Medications MedicationDrug Class(es)DatesSig (Normalized)Sig (Original)amoxicillin 875 mg / clavulanate 125 mg oral tablet (3 sources)Penicillin-class AntibacterialStart: 85-51-1414lotv 1 tablet by mouth every twelve hoursAmoxicillin-Pot Clavulanate 875-125 MG 1 tablet Orally every 12 hrs for 10 day(s) Aug, ActiveCalcium + D 315-200 MG-UNIT (3 sources)take 1 tablet by mouth twice dailyCalcium + D 315-200 MG-UNIT 1 tablet Orally Twice a day Activecalcium carbonate 1250 mg oral tablet (7 sources)Start: 94-34-1498qrzk 1 tablet by mouth once dailyStart: 07-27-2020 take 1 tablet by mouth once dailyCaltrate 600 + D 1 tab(s), Oral, Daily, Refill(s) 0 Start Date: 07/27/20 Status: Orderedcephalexin 500 mg oral capsule (4 sources)Cephalosporin AntibacterialStart: 14-18-6423wowt 1 capsule by mouth twice dailyStart: 07-02-2024 End: 80-08-1983dvjs 1 capsule by mouth in the morningcephalexin (Keflex) 500 MG capsule Indications: Urinary tract infection with hematuria, site unspecified Take 1 capsule (500 mg) by mouth in the morning and 1 capsule (500 mg) before bedtime. Do all this for 10 days. 20 capsule 07/02/2024 07/12/2024 Active ciprofloxacin 500 mg oral tablet (6 sources)Quinolone AntimicrobialStart: 10-22-2024 End: 14-49-4642ubln 1 tablet by mouth in the morningciprofloxacin (Cipro) 500 MG tablet Indications: Diverticulitis Take 1 tablet (500 mg) by mouth in the morning and 1 tablet (500 mg) before bedtime. Do all this for 10 days. 20 tablet 10/22/2024 11/04/2024 DiscontinuedStart: 04-08-2024 End: 94-65-7305hcam 1 tablet by mouth in the morningciprofloxacin (Cipro) 500 MG tablet Indications: Diverticulosis of colon , Diverticulitis , Generalized abdominal pain Take 1 tablet (500 mg) by mouth in the morning and 1 tablet (500 mg) before bedtime. Do all this for 10 days. 20 tablet 04/08/2024 04/18/2024 ActiveStart: 65-12-1353zkln 1 tablet by mouth once dailyCipro 500 mg Tab 500 mg = 1 tab(s), Oral, Daily, take one tab day before procedure and one tab after procedure, # 2 tab(s), Refills(s) 0, Pharmacy: [facility], 159, cm, 07/17/23 11:31:00 EDT, Height/Length Dosing, 67.6, kg, 07/17/23 11:31:00 EDT, Weight Dosing Start Date: 07/28/23 Status: Ordereddocusate sodium 100 mg oral capsule (8 sources)Start: 05-30-2024 End: 30-43-1724rfxn 1 capsule by mouth once dailydocusate sodium (Colace) 100 MG capsule Indications: Diverticulitis Take 1 capsule (100 mg) by mouth Daily 30 capsule 1 05/30/2024 07/29/2024 Activeestradiol 0.1 mg/ml vaginal cream (20 sources)EstrogenStart: 66-18-3572Hbkif: 05-48-6747lrffdrtpm (Estrace) 0.1 MG/GM vaginal cream Indications: Vaginal atrophy 2g vaginal daily for 2 weeks, then 2 times weekly following initial 2 weeks 42.5 g 11/04/2024 ActiveStart: 48-77-1878cfpaohmzo 0.1 mg/g Vag Crm 1 gm, Vaginal, MonFri, 42.5 gm, Refill(s) 6, [facility],159, cm, 07/17/23 11:31:00 EDT, Height/Length Dosing, 67.6, kg, 07/17/23 11:31:00 EDT, Weight Dosing Start Date: 08/22/23 Status: Orderedestradiol (Estrace) 0.1 MG/GM vaginal cream INSERT 1 gram VAGINALLY on MONDAY and MONDAY Activefluconazole 150 mg oral tablet (1 source)Azole AntifungalStart: 11-04-2024 End: 84-99-9377yzhy 1 tablet by mouth oncefluconazole (Diflucan) 150 MG tablet Indications: Vaginal itching , Yeast infection Take 1 tablet (150 mg) by mouth 1 (one) time for 1 dose 1 tablet 1 11/04/2024 11/04/2024 ActiveLactobacillus acidophilus (1 source)Lactobacillus acidophilus (PROBIOTIC PO) Take by mouth. Adcoqg18 hr loratadine 10 mg / pseudoephedrine sulfate 240 mg extended release oral tablet (20 sources)alpha-Adrenergic AgonistStart: 08-14-2024 End: 84-44-7181hmvc 1 tablet by mouth every twenty-four hours, then take 1 tablet by mouth every twenty-four hoursStart: 07-09-2024 End: 77-29-6709chqi 1 tablet by mouth once in the morning, then take 1 tablet by mouth every twelve hours at bedtimeloratadine-pseudoephedrine ER (Claritin-D 12 Hour) 5-120 MG 12 hr tablet Indications: Chronic sinusitis, unspecified location , Seasonal allergic rhinitis due to pollen Take 1 tablet by mouth in the morning and 1 tablet before bedtime. Do not crush, chew, or split. 60 tablet 1 07/09/2024 08/14/2024DiscontinuedStart: 11-01-2754iwld 1 tablet by mouth once dailyClaritin-D 1 tab(s), Oral, Daily, Refill(s) 0 Start Date: 07/30/20 Status: OrderedMEDICATION, NON-DATABASE (1 source)MEDICATION, NON-DATABASE Calcium Citrate + D3 ActivemetroNIDAZOLE 500 mg oral tablet (5 sources)Nitroimidazole AntimicrobialStart: 09-23-2024 End: 99-32-8441fwas 1 tablet by mouth in the morning, then take 1 tablet by mouth in the evening, then take 1 tablet by mouth at bedtimemetroNIDAZOLE (Flagyl) 500 MG tablet Take 500 mg by mouth in the morning and 500 mg in the evening and 500 mg before bedtime. 09/23/2024 11/04/2024 Discontinued (Side effects)24 hr mirabegron 50 mg extended release oral tablet (20 sources)beta3-Adrenergic AgonistStart: 13-20-1160rlna 1 tablet by mouth every twenty-four hoursStart: 05-03-2023 End: 47-95-0334waja 1 tablet by mouth once dailymirabegron ER (Myrbetriq) 50 MG 24 hr tablet Indications: OAB (overactive bladder) Take 1 tablet (50 mg) by mouth Daily 90 tablet 3 10/22/2024 ActiveMultiple Vitamin (multivitamin) capsule (20 sources)take 1 capsule by mouth once dailyMultiple Vitamin (multivitamin) capsule Take 1 capsule by mouth Daily ActiveMultiple Vitamins-Minerals (PRESERVISION AREDS PO) (20 sources)Multiple Vitamins-Minerals (PRESERVISION AREDS PO) Take by mouth Activemultivit-min/ferrous fumarate (MULTI VITAMIN PO) (1 source)multivit-min/ferrous fumarate (MULTI VITAMIN PO) Take by mouth. Active Multivitamin preparation (5 sources)Start: 13-46-5578psjb 1 tablet by mouth once dailyMultivitamin Active 1 TAB PO Daily February 14, 2023 12:00amStart: 02-13-2019 End: 95-17-3808sfeh 1 mL by mouth once dailyMultivitamin Discontinued 10 ML PO Daily February 13, 2019 12:00am February 14, 2023 11:56amMultivitamin - Orally ActiveMultivitamin Tablet (2 sources)Start: 86-36-7417enqp 1 tablet by mouth once dailyStart: 02-14-2023 take 1 tablet by mouth once dailyMultivitamin Tablet Active 1 TAB PO Daily February 14, 2023 1:00am Complies with drug therapyMultivitamins and Minerals (5 sources)Start: 35-90-3246dfeq 1 tablet by mouth once dailyMultivitamins and Minerals Daily, Refill(s) 0, one tab by mouth daily Start Date: 07/27/20 Status: Vstjhwx18 hr oxybutynin chloride 15 mg extended release oral tablet (10 sources)Cholinergic Muscarinic AntagonistStart: 61-80-4132ulnc 1 tablet by mouth once dailyoxybutynin 15 mg ER Tab 15 mg = 1 tab(s), Oral, Daily, # 30 tab(s), Refills(s) 11, Pharmacy: [facility], 159, cm, 07/17/23 11:31:00 EDT, Height/Length Dosing, 67.6, kg, 07/17/23 11:31:00 EDT, Weight Dosing Start Date: 07/17/23 Status: Orderedpolyethylene glycol 3350 111650 mg / potassium chloride 2970 mg / sodium bicarbonate 6740 mg / sodium chloride 5860 mg / sodium sulfate 15044 mg powder for oral solution (2 sources)Osmotic LaxativeStart: 02-05-7007fwpk 4000 mL by mouth once daily Golytely 236 GM 4000 ML Orally once daily for 1 days Dec, Active predniSONE 20 mg oral tablet (3 sources)Start: 62-06-7699eaky 1 tablet by mouth every twelve hourspredniSONE 20 MG 1 tablet Orally bid for 5 day(s) Aug, ActivePreserVision AREDS (1 source)Start: 67-45-6095TzkfudOhjcsu AREDS See Instructions, Refill(s) 0 Start Date: 04/26/24 Status: Orderedsaccharomyces boulardii 250 mg oral capsule (5 sources) End: 85-80-2654ycwq 1 capsule by mouth in the morningsaccharomyces boulardii (Florastor) 250 MG capsule Take 250 mg by mouth in the morning and 250 mg before bedtime. 11/19/2024 Discontinued (Therapy completed)vit A/vit C/vit E/zinc/copper (PRESERVISION AREDS PO) (1 source)vit A/vit C/vit E/zinc/copper (PRESERVISION AREDS PO) Take by mouth. Active Completed/Discontinued Medications MedicationDrug Class(es)DatesSig (Normalized)Sig (Original)[id number] 200 actuat albuterol 0.09 mg/actuat metered dose inhaler (3 sources)beta2-Adrenergic AgonistStart: 10-58-5560hrqb 2 puff(s) by inhalation every four hours as neededAlbuterol Sulfate HFA 108 (90 Base) MCG/ACT 2 puffs as needed Inhalation every 4 hrs Apr, Not-TakingStart: 93-29-7157rfxy 2 puff(s) by inhalation every four hours as neededAlbuterol Sulfate HFA 108 (90 Base) MCG/ACT 2 puffs as needed Inhalation every 4 hrs Apr, Not-Taking calcium carbonate 1250 mg / cholecalciferol 200 unt oral tablet (20 sources)Vitamin DStart: 02-13-2019 End: 53-53-9212Rkwujlo Carbonate-Vitamin D3 (Calcium 500 + D) 500 mg(1,250mg) - 200 unit Tablet Discontinued 1 TAB PO Twice daily February 13, 2019 1:00am February 14, 2023 12:56pmtake 1 tablet by mouth once in the morning, then take 1 tablet by mouth once at mealtimeCalcium Carbonate-Vitamin D (Oyster Shell Calcium/D) 500-5 MG-MCG tablet Take 1 tablet by mouth in the morning and 1 tablet in the evening. Take with meals. ActiveCalcium Carbonate-Vitamin D3 (Calcium 500 + D) 500 mg(1,250mg) -200 unit Tablet (1 source)Start: 02-13-2019 End: 32-46-2690Kahxaux Carbonate-Vitamin D3 (Calcium 500 + D) 500 mg(1,250mg) - 200 unit Tablet Discontinued 1 TAB PO Twice daily February 13, 2019 12:00am February 14, 2023 11:56amdiclofenac sodium 75 mg delayed release oral tablet (3 sources)Nonsteroidal Anti-inflammatory DrugStart: 02-13-2019 End: 94-78-4847eopn 1 tablet by mouth twice dailyDiclofenac Sodium 75 mg Tablet,Delayed Release (Dr/Ec) Discontinued 75 MG PO Twice daily February 13, 2019 1:00am February 14, 2023 12:56pmloratadine 10 mg oral tablet (17 sources)Start: 02-14-2023 End: 91-18-1077ghub 1 tablet by mouth once dailyLoratadine (Claritin) 10 mg Tablet Discontinued 10 MG PO Daily February 14, 2023 1:00am January 09, 2025 4:06pmmethylPREDNISolone 4 mg oral tablet (3 sources)CorticosteroidStart: 63-45-3655Stmzij (Cirstian) 4 MG half of daily dose in the morning with food and the rest at night with food Orally Apr, Not-TakingMultivitamin Liquid (2 sources)Start: 02-13-2019 End: 53-31-3599oyau 1 mL by mouth once dailyMultivitamin Liquid Discontinued 10 ML PO Daily February 13, 2019 1:00am February 14, 2023 12:56pmoseltamivir 75 mg oral capsule (3 sources)Neuraminidase InhibitorStart: 61-11-6890yuib 1 capsule by mouth every twelve hoursTamiflu 75 MG 1 capsule Orally Twice a day for 5 day(s) Apr, Not-Taking Problems Active Problems Problem ClassificationProblemDateDocumented DateEpisodic/Chronic Administrative/social admission (4 sources)Patient encounter status; Translations: [Other specified counseling] 05-50-5288HzzrzvfyCqcewmx obstructive pulmonary disease and bronchiectasis (20 sources)Chronic obstructive lung disease; Translations: [Chronic obstructive pulmonary disease, unspecified]Onset: 231715-90-9400VmmjwaiEiubjiliv of lipid metabolism (20 sources)Hyperlipidemia; Translations: [Pure hypercholesterolemia]Onset: 11-23-2022 Resolved: 750866-37-3889NdresqnNdlwmztkvozyqs and diverticulitis (20 sources)Diverticulitis; Translations: [Diverticulitis of intestine, part unspecified, without perforation or abscess without bleeding]Onset: 03-01-2023 Resolved: 325214-27-9564HlyhojpKztjlulioyqqe symptoms and ill-defined conditions (20 sources)Urge incontinence; Translations: [Urge incontinence of urine]Onset: 72-69-4004LfjltojWmbrzyeuhpjls symptoms and ill-defined conditions (20 sources)Increased frequency of urination; Translations: [Frequency of micturition]Onset: 05-03-2023 Resolved: 14-74-7909HpklqsbjTpxjeuuxqs disorders (20 sources)Atrophic vaginitis; Translations: [Postmenopausal atrophic vaginitis]Onset: 55-41-7079CkbxmstDqlqlazpyhjhz mental health disorders (20 sources)Bruxism (teeth grinding); Translations: [Other somatoform disorders] Onset: 858763-95-7486NludnkeHjyehvl (1 source)Mycosis; Translations: [Candidiasis, unspecified]79-55-5780Jyjlhurj Nonmalignant breast conditions (20 sources)Fibrocystic disease of breast; Translations: [Diffuse cystic mastopathy of unspecified breast]Onset: 833481-76-2046RbojajxVaens diseases of bladder and urethra (2 sources)Detrusor overactivity; Translations: [Overactive bladder]Onset: 37-37-0583IihkdkkXihqq diseases of bladder and urethra (20 sources)Overactive bladder; Translations: [Overactive bladder]Onset: 134393-94-9257BkqblclJecth female genital disorders (1 source)Pruritus of vagina; Translations: [Other specified noninflammatory disorders of vagina]66-98-0781IvzhyxooHghkh female genital disorders (2 sources)Noninflammatory disorder of the vagina; Translations: [Other specified noninflammatory disorders ofvagina]52-49-0132LmgahzxtAevti nervous system disorders (3 sources)Chronic pain; Translations: [Other chronic pain]ChronicOther nervous system disorders (20 sources)Difficulty walking; Translations: [Difficulty in walking, not elsewhere classified]Onset: 079419-78-9693JrffpreGyiay screening for suspected conditions (not mental disorders or infectious disease) (6 sources)Encounter for screening mammogram for malignant neoplasm of breast; Translations: [Patient encounter status]Onset: 57-90-5745LvreaiajFdxak upper respiratory disease (20 sources)Allergic rhinitis; Translations: [Allergic rhinitis, unspecified] Onset: 071147-17-2302XgnoljmQnjlu upper respiratory disease (4 sources)Allergic rhinitis due to pollen; Translations: [Allergic rhinitis due to pollen]62-83-5551UicintgPjzoe upper respiratory infections (20 sources)Chronic sinusitis; Translations: [Chronic sinusitis, unspecified] Onset: 847474-87-5342MjfoncyQoxsm upper respiratory infections (2 sources)Acute upper respiratory infection, unspecified; Translations: [Acute sinusitis, unspecified]Onset: 90-37-8328WphwdkioSogkrwo cyst (9 sources)Cyst of bilateral ovaries; Translations: [Unspecified ovarian cyst, right side]18-53-4305MnrfnufiLethhvzr codes; unclassified (1 source)Family history of malignant neoplasm of breast; Translations: [FAMILY HX MALIG NEOPLASM OF BREAST]Onset: 10-56-3397MdbsrtjbQudmdcpd codes; unclassified (1 source)Family history of malignant neoplasm of prostate; Translations: [FAMILY HX MALIG NEOPLASM PROSTATE]Onset: 74-87-3060PrvgpetwEvuuhpyd codes; unclassified (1 source)Family history of malignant neoplasm of bladder; Translations: [FAM HX MALIGNANT NEOPLASM BLADDER]Onset: 92-61-4001YbnxujyhOnveenyf codes; unclassified (1 source)Family history of malignant neoplasm of other organs or systems; Translations: [FAM HX MALIG NEOPLASM OTH ORGN/SYS]Onset: 36-71-5365Wehkblyt Residual codes; unclassified (1 source)Asymptomatic menopausal state; Translations: [Asymptomatic menopausal state]Onset: 89-87-0617JqmgjkkxChmmhcpl codes; unclassified (2 sources)Other problems related to lifestyle; Translations: [Other problems related to lifestyle]38-60-6768UymhurwoDrckawm detachments; defects; vascular occlusion; and retinopathy (20 sources)Nonexudative age-related macular degeneration; Translations: [Nonexudative age-related macular degeneration, bilateral, early dry stage] Onset: 600577-84-1640WaioygiToamzinaasz; intervertebral disc disorders; other back problems (20 sources)Solitary sacroiliitis; Translations: [Sacroiliitis, not elsewhere classified]Onset: 334424-01-4969QlngrlkYckivxunkajn (2 sources)COUGH, UNSPECIFIED; Translations: [COUGH, UNSPECIFIED]Onset: 23-63-2193Cuxcanlfdeiz (1 source)Gynecologic ExamOnset: 13-90-3182Bgtnrsm tract infections (4 sources)Urinary tract infectious disease; Translations: [Urinary tract infection, site not specified]79-74-9170VanzinkyIotyn infection (1 source)COVID-19; Translations: [COVID-19]Onset: 03-22-2022 Past or Other Problems Problem ClassificationProblemDateDocumented DateEpisodic/ChronicAbdominal pain (20 sources)Generalized abdominal pain; Translations: [Generalized abdominal pain]Onset: 264635-78-9993VkgzfwvoBidomseg; including migraine (20 sources)Headache disorder; Translations: [Other headache syndrome]Onset: 344966-54-1174OionyhviGzmz disorders (20 sources)Mood disordersOnset: 11-24-2022 Resolved: Other and unspecified benign neoplasm (20 sources)Tubular adenoma of colon; Translations: [Benign neoplasm of colon, unspecified]Onset: 706886-53-8997JcbhrgpzMwslf connective tissue disease (20 sources)Snapping thumb syndrome; Translations: [Trigger thumb, unspecified thumb]Onset: 656775-67-3866HxfehihhUvdbv diseases of bladder and urethra (20 sources)Prolapse of urethra; Translations: [Other specified disorders of urethra]Onset: 822890-22-1452HgbvmivqOwtqt diseases of bladder and urethra (20 sources)Urethral stricture; Translations: [Unspecified urethral stricture, female]Onset: 46-85-4862EquedkiyZgtbe upper respiratory disease (20 sources)Seasonal allergy; Translations: [Other seasonal allergic rhinitis] Onset: 11-23-2022 Resolved: 955117-25-3312JyrolrqUhaganqrv and history of mental health and substance abuse codes (20 sources)Ex-smoker; Translations: [Personal history of nicotine dependence] Onset: 700169-73-2658ZcngnjtwRwulldbtm-macwoxq disorders (20 sources)Tobacco user; Translations: [Nicotine dependence, unspecified, uncomplicated]Onset: 07-04-2007 Resolved: 347677-28-1113FjhmkmcSfbfzncaokvf (1 source)COUGH, UNSPECIFIED; Translations: [COUGH, UNSPECIFIED]Onset: 03-18-2022 Results Test NameValueInterpretationReference RangeFacilityLaboratory - Chemistry and Chemistry - challengeOrdered By: Coco Reilly on 81-33-0174Chxrauzmh Ql (U) [facility] CenterGlucose (U) [Mass/Vol]NegativeWilson Street HospitalKetones Ql (U)traceWilson Street HospitalpH (U)5.5 [pH][facility] Hospitalpecific gravity (U) [Rel density] >=1.030[address] HospitalLaboratory - Specimen informationOrdered By: Coco Reilly on 06-48-3166Nrzvllufaf (U)clearWilson Street HospitalColor (U)yellowWilson Street HospitalLaboratory - Urinalysis Ordered By: Coco Reilly on 84-04-0169Tyaogfbyl esterase Test strip Ql (U)trace Wilson Street HospitalNitrite Ql (U)NegativeWilson Street HospitalProtein Ql (U)NegativeWilson Street HospitalNo Panel InformationOrdered By: Coco Reilly on 89-85-4439Ikngd Occult BloodNegative Wilson Street HospitalUrine Urobilinogen0.2EU/dLWilson Street HospitalUrine Cultureon 84-20-7710Nnkqlzul identified Cx Nom (U)20,000 colonies/ml mixed bacterial skin contaminants 2 Days PERFORMED BY: [place] [address] PATHOLOGIST COIL REWIND MACHINE OPERATOR JOSÉ MIGUEL NULL M.D.NormalThe [facility] Physician GroupComment on above: Performed By: #### CUU #### [place] [id number] USAUS PELVIS W/ TRANSVAGINALon 28-37-3364[place] [address] Ultrasound Report Signed Patient: JEANIE HARDIN MR#: [id number] : 1955 Acct:[id number] Age/Sex: 69 / F ADM Date: 11/05/24 Loc: US Attending Dr: Christ Ewing D.O. Ordering Physician: Christ Ewing D.O. Date of Service: 11/05/24 Procedure(s): US pelvis w/ transvaginal Accession Number(s): [id number] cc: IVÁN MARROQUIN ; Christ Ewing D.O. The [address] [address] Patient Name: JEANIE HARDIN MRN: [id number] date: 1955 Sex: F Assigned Patient Location: US Current Patient Location: Accession/Order Number: [id number] Exam Date: 11/06/2024 12:44 Report Date: 11/06/2024 12:46 At the request of: CHRIST EWING DO Procedure: US pelvis w/ transvaginal Pelvic ultrasound HISTORY: Bilateral ovarian cyst Hysterectomy. Right ovary measures 3.5 x 3.0 x 2.9 cm with resistive index of 0.36. 2.9 cm anechoic right ovarian cyst identified. Left ovary not visualized. No adnexal mass. No free fluid. US/US pelvis w/ transvaginal IMPRESSION: 2.9 cm anechoic right ovarian cyst. Impression dictated by: Amandeep Meyer M.D. 11/06/2024 12:46 PM Dictation Location: [place] [address] Electronically authenticated by: [id number] Y Date: 11/06/2024 12:46 Dictated By: Amandeep Meyer D.O. Signed By: 11/06/24 1249 DD/ 1246 TD/TT: Lead Coater:TBHRadiology, Radiologist, MD - 11/06/2024 [place] [address] Ultrasound Report Signed Patient: JEANIE HARDIN MR#: [id number] : 1955 Acct:[id number] Age/Sex: 69 / F ADM Date: 11/05/24 Loc: US Attending Dr: Christ Ewing D.O. Ordering Physician: Christ Ewing D.O. Date of Service: 11/05/24 Procedure(s): US pelvis w/ transvaginal Accession Number(s): [id number] cc: IVÁN MARROQUIN ; Christ Ewing D.O. The [address] [address] Patient Name: JEANIE HARDIN MRN: [id number] date: 1955 Sex: F Assigned Patient Location: US Current Patient Location: Accession/Order Number: [id number] Exam Date: 11/06/2024 12:44 Report Date: 11/06/2024 12:46 At the request of: CHRIST EWING DO Procedure: US pelvis w/ transvaginal Pelvic ultrasound HISTORY: Bilateral ovarian cyst Hysterectomy. Right ovary measures 3.5 x 3.0 x 2.9 cm with resistive index of 0.36. 2.9 cm anechoic right ovarian cyst identified. Left ovary not visualized. No adnexal mass. No free fluid. US/US pelvis w/ transvaginal IMPRESSION: 2.9 cm anechoic right ovarian cyst. Impression dictated by: Amandeep Meyer M.D. 11/06/2024 12:46 PM Dictation Location: [place] [address] Electronically authenticated by: [id number] Y Date: 11/06/2024 12:46 Dictated By: Amandeep Meyer D.O. Signed By: 11/06/24 1249 DD/ 1246 TD/TT: Lead Coater: [facility] HealthcareRadiology Study observation (narrative)NOM HealthcareUS PELVIS W/ TRANSVAGINALOrdered By: Radiologist Radiology on 10-36-3840[facility] Work Phone: cREATININEon 81-18-2794Xbpfieactl [Mass/Vol]0.56 mg/dL Normal0.50-1.05Quest DiagnosticsComment on above:Performed By: #### 375 #### [facility] [address] Boring Machine Operator Helper: Richard Mcintyre MDGFR/1.73 sq M.predicted among non-blacks MDRD (S/P/Bld) [Vol rate/Area]100 mL/min/{1.73_m2}Normal> OR = 60[facility] Comment on above:Performed By: #### 375 #### [facility] [address] Boring Machine Operator Helper: Richard Mcintyre [facility]ly [facility] 71-56-2301KQLPFgretq Visit ([facility]) JEANIE HARDIN ([id number]) 1955 F Date Time Provider Department 10/16/24 1:00 PM YUMI PAULA During your visit today, we recorded the following information about you: Temperature Pulse Blood pressure Weight 97.6 degrees 80/minute 139/76 61.2 kg Height 1.6 m Yumi Paula MD 10/16/2024 10:03 PM Signed COLORECTAL SURGERY New Patient Visit October 16, 2024 Chief Complaint: Diverticulitis History of Present Illness: Jeanie Hardin is a 69 year old year old female being seen in clinic at the request of Namrata Frank CNP regarding Diverticulitis. The patient is a 69-year-old female with diverticulosis, presenting for evaluation and management of recurrent episodes of abdominal pain, most recently complicated by diverticulitis in September. Currently she denies abdominal pain, is having normal bowel function and feels well. She reports experiencing intermittent episodes of abdominal pain for several years, initially occurring three to four times per year prior to her halfway five years ago. She previously attributed these episodes to specific foods, such as meals at [employer]. The pain is typically located in the lower abdomen, though in the past few days she has also noticed transient discomfort in the upper abdomen that resolves spontaneously. She describes the onset of her most severe episodes as occurring overnight, awakening her from sleep with a sensation of needing to have a bowel movement but being unable to do so, accompanied by significant pain. During her most recent episode in September, she awoke feeling well but developed abdominal pain overnight, followed by repeated unsuccessful attempts to have a bowel movement and ultimately vomiting after eating breakfast. She recalls a similar episode in March, which also involved overnight onset, abdominal pain, and vomiting. She states that vomiting has only occurred during her most severe episodes. She was hospitalized in September in [facility] for diverticulitis, where she received antibiotics and Tylenol for inflammation. She reports that her primary care provider also prescribed antibiotics for a similar episode in March, but no imaging was performed at that time. She denies any prior hospitalizations for abdominal pain before these episodes. She has not experienced symptoms such as low blood pressure or rapid heart rate during these events. She reports that her pain episodes are always worse overnight and do not resolve within a few hours. She denies any urinary symptoms, including blood or air in the urine, and reports no issues with urination. Last colonoscopy was 3 years ago and she feels that this was normal. Her only previous abdominal surgery was a partial hysterectomy with oophorectomy. COLONOSCOPY: None presently on file Office Visit dated 10/02/2024 Namrata Frank CNP ([facility]): Assessment/Plan Diagnoses and all orders for this visit: Diverticulitis - CT abdomen pelvis wo IV contrast; Future - Ambulatory referral to Gastroenterology; [facility] recommended that pt have a CT of the abdomen and pelvis once she completes the ATB treatment. CT ordered for this pt. Pt is requesting to be seen by a specialist. Explained to pt that they would not have any further recommendations. She insisted in seeing pt. Bilateral ovarian cysts - Ambulatory referral to Obstetrics / Gynecology; Future - CT abdomen pelvis wo IV contrast; Future Pt has a partial hysterectomy. The CT showed that she has encapsulated ovarian cysts. She is requesting to see someone. She is wanting her ovaries to be taken out. Await referral. No follow-ups on file. CT ABDOMEN/PELVIS W CON dated 09/23/2024 ([employer]): CT ABDOMEN/PELVIS W CON dated 09/20/2024 ([employer]): Office Visit dated 05/30/2024 completed by YANELY Braga([facility]): Assessment/Plan 1. Acute non-recurrent frontal sinusitis (Primary) Discussed diagnosis with the pt, use of augmentin and its most common side effects. Advised to increase her fluids, rest, continue otc decongestant of her choice such as sudafed, continue the atb as ordered and follow up as needed for continued or worsening symptoms. - amoxicillin-clavulanate (Augmentin) 875-125 MG tablet; Take 1 tablet (875 mg) by mouth in the morning and 1 tablet (875 mg) before bedtime. Do all this for 10 days. Dispense: 20 tablet; Refill: 0 2. Diverticulitis The pt presents with a history of diverticulitis today. She reports some lower quadrant pain 2-3 days ago. She reports since she had a bowel movement this has subsided. She reports that her stools are sometimes difficult to get out. She is unsure of what she needs to do and request (more content not included)... NormalMercy Health – The Jewish HospitalTORY PHYSICALon [id number] PHYSICALHNO ID: [id number] Author: YUMI PAULA MD Service: ? Author Type: Physician Type: H&P Filed: 10/16/2024 22:03 Note Text: COLORECTAL SURGERY New Patient Visit October 16, 2024 Chief Complaint: Diverticulitis History of Present Illness: Jeanie Hardin is a 69 year old year old female being seen in clinic at the request of Namrata Frank CNP regarding Diverticulitis. The patient is a 69-year-old female with diverticulosis, presenting for evaluation and management of recurrent episodes of abdominal pain, most recently complicated by diverticulitis in September. Currently she denies abdominal pain, is having normal bowel function and feels well. She reports experiencing intermittent episodes of abdominal pain for several years, initially occurring three to four times per year prior to her halfway five years ago. She previously attributed these episodes to specific foods, such as meals at [employer]. The pain is typically located in the lower abdomen, though in the past few days she has also noticed transient discomfort in the upper abdomen that resolves spontaneously. She describes the onset of her most severe episodes as occurring overnight, awakening her from sleep with a sensation of needing to have a bowel movement but being unable to do so, accompanied by significant pain. During her most recent episode in September, she awoke feeling well but developed abdominal pain overnight, followed by repeated unsuccessful attempts to have a bowel movement and ultimately vomiting after eating breakfast. She recalls a similar episode in March, which also involved overnight onset, abdominal pain, and vomiting. She states that vomiting has only occurred during her most severe episodes. She was hospitalized in September in [facility] for diverticulitis, where she received antibiotics and Tylenol for inflammation. She reports that her primary care provider also prescribed antibiotics for a similar episode in March, but no imaging was performed at that time. She denies any prior hospitalizations for abdominal pain before these episodes. She has not experienced symptoms such as low blood pressure or rapid heart rate during these events. She reports that her pain episodes are always worse overnight and do not resolve within a few hours. She denies any urinary symptoms, including blood or air in the urine, and reports no issues with urination. Last colonoscopy was 3 years ago and she feels that this was normal. Her only previous abdominal surgery was a partial hysterectomy with oophorectomy. COLONOSCOPY: None presently on file Office Visit dated 10/02/2024 Namrata Frank CNP ([facility]): Assessment/Plan Diagnoses and all orders for this visit: Diverticulitis - CT abdomen pelvis wo IV contrast; Future - Ambulatory referral to Gastroenterology; [facility] recommended that pt have a CT of the abdomen and pelvis once she completes the ATB treatment. CT ordered for this pt. Pt is requesting to be seen by a specialist. Explained to pt that they would not have any further recommendations. She insisted in seeing pt. Bilateral ovarian cysts - Ambulatory referral to Obstetrics / Gynecology; Future - CT abdomen pelvis wo IV contrast; Future Pt has a partial hysterectomy. The CT showed that she has encapsulated ovarian cysts. She is requesting to see someone. She is wanting her ovaries to be taken out. Await referral. No follow-ups on file. CT ABDOMEN/PELVIS W CON dated 09/23/2024 ([employer]): CT ABDOMEN/PELVIS W CON dated 09/20/2024 ([employer]): Office Visit dated 05/30/2024 completed by YANELY Braga([facility]): Assessment/Plan 1. Acute non-recurrent frontal sinusitis (Primary) Discussed diagnosis with the pt, use of augmentin and its most common side effects. Advised to increase her fluids, rest, continue otc decongestant of her choice such as sudafed, continue the atb as ordered and follow up as needed for continued or worsening symptoms. - amoxicillin-clavulanate (Augmentin) 875-125 MG tablet; Take 1 tablet (875 mg) by mouth in the morning and 1 tablet (875 mg) before bedtime. Do all this for 10 days. Dispense: 20 tablet; Refill: 0 2. Diverticulitis The pt presents with a history of diverticulitis today. She reports some lower quadrant pain 2-3 days ago. She reports since she had a bowel movement this has subsided. She reports that her stools are sometimes difficult to get out. She is unsure of what she needs to do and requests information regarding an appropriate diet for her hx of diverticulitis. Diet discussed with the pt today. Colace is added today and its use is discussed at length. She is in agreement to try this medication. She is also encouraged to continue the daily probiotic. - docusate sodium (Colace) 100 MG (more content not included)...NormalMercy Health St. Elizabeth Youngstown HospitalUrinalysis macro (dipstick) panel (U)on [id number], UA NegativeNegative - 4(70) +++ mg/dLNOMS HealthcareBlood, UAPositiveNegative - 50 Edward/mcLUTAH VALLEY [facility] HealthcareClarity, UACloudyNONH HealthcareColor, UALight YellowNONH HealthcareGlucose, UANegativeNegative - 2000(110) ++++ mg/dLNONH Healthcare Interpretation and review of laboratory resultsAbnormalNONH HealthcareKetones, UAPositiveNegative - 160(16) ++++ mg/dLNONH HealthcareLeukocytes, UAPositive Negative - 500+++ Matt/mcLNONH HealthcareNitrite, UAPositiveNegative - Positive NOMS HealthcarepH, UA75 - 9NOMS HealthcareProtein, UATraceNegative - 2000(20) ++++ mg/dLNONH HealthcareSpec Grav, UA1.0151 - 1.03NOMS HealthcareUrobilinogen, UA0.20.2 - 12 mg/dLNOEllis Fischel [facility] Center HealthcareUrology Office/Clinic Noteon [id number] Office/Clinic NoteUrology Office/Clinic Note Chief Complaint urge incontinence HPI Staff 68yr old female pt here for 4mo f/u with PVR. S/P cysto with UD 08/22/23. Previous Dx: urge incontinence, abnormal urinalysis, vaginal atrophy, unspecified urethral stricture *Oxybutynin ER 15 mg qd, uses estradiol cream 2x a week. PVR today is 10ml. Dysuria: denies Incomplete bladder emptying: feels she is emptying better Hematuria: denies Frequency: denies states she can go a couple of hours in between now Urgency: denies Nocturia: 1x Stream: no straining or intermittency states good and steady Leaking: denies Post void dripping: denies Wearing pads/ Depends: pantyliner just in case Urge incontinence: rare now Stress incontinence: denies Incontinence without Sensory Awareness: denies Abdominal pain: denies Flank pain: denies Sexual complaints: denies History of Present Illness Tests reviewed: reviewed UA. I have reviewed the previous health record information and history for this patient from Dr. Stoner I have reviewed and verified the staff HPI to be accurate for this encounter. There have been no associated fever, chills, flank pain, or blood in the urine. Denies any urinary infections since last encounter. Review of Systems PHQ Score Initial Depression Screen Score: 0 SCORE ROS - Provider Constitutional: denies weight loss, denies hot flashes. Eyes: denies eye problems. Gastrointestinal: denies nausea, denies vomiting. Cardiovascular: denies chest pain or angina. Integumentary: no dryness Musculoskeletal: denies musculoskeletal symptoms. ENMT: denies otolaryngeal symptoms. Respiratory: no shortness of breath. Heme/Lymph: denies easy bleeding tendency, denies easy bruising tendency. Psychiatric: no confusion, no anxiety. Genitourinary: See HPI. Physical Exam Vitals & Measurements T: 37 ???C(Temporal Artery) HR: 75(Peripheral) RR: 16 BP: 137/88 HT: 63 in HT: 159 cm WT: 63 kg WT: 138.891 lb BMI: 24.92 General Appearance: alert , no acute distress, well nourished, well developed female. Assessment/Plan 1. Urge incontinence (N39.41: Urge incontinence) PVR 05/03/23 - 0 mL 04/26/23 - 10 mL Failed Myrbetriq due to cost. Taking Oxybutynin 15mg ER qd. Reports SE of dry mouth and constipation but does not feel either is bothersome. Feels constipation is controlled with supplements. Pt states she feels Oxybutynin does help. Symptoms have improved. PVR remains low. Discussed trialing Myrbetriq now that medication is generic. Will send script. Pt to call if costly. -Script sent for Mirabegron 50mg ER qd, pt to call if costly -Cont Oxybutynin for the time being, do not take along with Mirabegron if affordable -F/up in 1 year or sooner if needed 2. Abnormal urinalysis (R82.90: Unspecified abnormal findings in urine) UA 12/25/23 was to be sent for culture. Appears this was not done. UA today negative for blood or infection. Asymptomatic of infection. 3. Vaginal atrophy (N95.2: Postmenopausal atrophic vaginitis) Pt continues Estradiol cream 2x/wk. Encouraged pt to continue regimen to avoid infections. 4. Unspecified urethral stricture, female (N35.92: Unspecified urethral stricture, female) S/p cysto/UD 08/22/23 - Tight, dry, brittle urethra. Dilated to 30Fr. Follow-up With When Contact Information HERBIE GARCIA, Petey Duncan, URL [address] [place], [place] [address]- Additional Instructions: 1 year Patient Education Urinary Incontinence I, Ernestine Villalobos, personally scribed for Dr. Stoner on 04/26/2024 10:32:10. Electronically signedby arline Villalobos on 04/26/2024 10:32:10. Documentation recorded by the scribe, Ernestine Villalobos, accurately reflects the services(s) I performed and decisions made by me. Authenticated by Dr. Stoner on 04/26/2024 10:35:10. Problem List/Past Medical History Ongoing Abnormal urinalysis Chronic obstructive pulmonary disease Cystourethrocele Diverticulitis Hyperlipidemia OAB (overactive bladder) Trigger thumb left Unspecified urethral stricture, female Urge incontinence Urinary frequency Vaginal atrophy Historical No qualifying data Procedure/Surgical History Injection of sacroiliac joint using fluoroscopic guidance (09/02/2020), Injection of sacroiliac joint using fluoroscopic guidance (02/18/2019), Injection of sacroiliac joint using fluoroscopic guidance (01/16/2018), Trigger thumb of left hand (10/15/2012), Spinal fusion (08/02/2011), Hysterectomy (0 03/20/2008), Elbow (07/2004), Tubal ligation (02/17/1985), Breast biopsy and related procedures, Colonoscopy, Tonsillectomy. Medications Caltrate 600 + D, 1 tab(s), Oral, Daily Claritin-D, 1 tab(s), Oral, Daily estradiol 0.1 mg/g Vag Crm, 1 gm, Vaginal, MonFri, 6 refills Multivitamins and Minerals, Daily oxybutynin 15 mg ER Tab, 15 mg= 1 tab(s), Oral, Daily, 11 refills PreserVision AREDS, See Instructions Allergies No Known Allergies Social History Alcohol - Denies Alcoh (more content not included)...[facility] HospitalComment on above:Result Comment: Electronically Signed By: Petey STONER MD\.br\Date and Time Signed: 04/26/24 10:35 EST\.br\Electronically Co- Signed By: Ernestine Villlaobos\.br\Date and Time Co-Signed: 04/26/2509:32 ESTXR ABDOMEN 2 VIEWon [id number] ABDOMEN 2 VIEWExam: XR ABDOMEN 2 VIEW Clinical History: Diverticulosis, abdominal pain/constipation Reference Exam: No comparison FINDINGS: XR ABDOMEN 2 VIEW Clinical History: Diverticulosis, abdominal pain/constipation Reference Exam: None Findings: Mild fecal loading of the colon. The abdominal bowel gas pattern is nonobstructive. No mass, organomegaly, or suspicious calcification. Negative for free intraperitoneal air. The skeleton is remarkable for postprocedural posterior elemental surgical changes at the lumbosacral junction. Impression: Negative for intestinal stasis. Mild fecal loading of the colon. Dictated on: 04/08/2024 9:40 AM This report has been electronically signed and approved by the interpreting Radiologist.NormalNot AvailableMM TOMOSYNTHESIS SCREENING BIon [id number] [address] Mammography Report Signed Patient: Jeanie Hardin MR#: [id number] : 1955 Acct:[id number] Age/Sex: 68 / F ADM Date: 02/26/24 Loc: MAMMO Attending Dr: IVÁN MARROQUIN Ordering Physician: IVÁN MARROQUIN Results: Date of Service: 02/26/24 Follow Up: Procedure(s): MM tomosynthesis screening BI Accession Number(s): [id number] cc: IVÁN MARROQUIN Patient Name: EJANIE HARDIN MR#: [id number] : 1955 Exam Date: 02/26/2024 Ordering Doctor: [...] pancreatic cancer at age 62. LOCATION: [facility] BREAST COMPOSITION: The breasts are heterogeneously [...] Signed By: 02/26/24 1548 DD/ 1547 TD/TT: Lead Coater:TBHRadiology, Radiologist, MD - 02/26/2024 [place] [address] Mammography Report Signed Patient: Jeanie Hardin MR#: [id number] : 1955 Acct:[id number] Age/Sex: 68 / F ADM Date: 02/26/24 Loc: MAMMO Attending Dr: IVÁN MARROQUIN Ordering Physician: IVÁN MARROQUIN Results: Date of Service: 02/26/24 Follow Up: Procedure(s): MM tomosynthesis screening BI Accession Number(s): [id number] cc: IVÁN MARROQUIN Patient Name: JEANIE HARDIN MR#: [id number] : 1955 Exam Date: 02/26/2024 Ordering Doctor: [...] pancreatic cancer at age 62. LOCATION: [facility] BREAST COMPOSITION: The breasts are heterogeneously [...] Signed By: 02/26/24 1548 DD/ 1547 TD/TT: Lead Coater: JOSIAH B. THOMAS HOSPITALSamir HealthcareRadiology Study observation (narrative)[facility] TOMOSYNTHESIS SCREENING BIOrdered By: Radiologist Radiology on [id number] Work Phone: cBC (INCLUDES DIFF/PLT)on 48-89-0028Eetmxconq (Bld) [#/Vol]0.038 10*3/uLNormal0-200Quest DiagnosticsComment on above:Performed By: #### 64682, 1786, 5019 #### [facility] of [place] [address] Danielle Watkins, [address] [place], [place] [id number] [employer] Machine Operator Helper: Richard Mcintyre MD #### [id number] #### [facility]/[place] [address] [facility] [address] [place], [place] Boring Machine Operator Helper: Petey Chaves M.D.,PhDBasophils/100 WBC (Bld)0.5 %Normal Quest DiagnosticsComment on above:Performed By: #### 10800, 7599, 6399 #### [facility] [place] [address] [place] , [address] [place], [place] [address] Boring Machine Operator Helper: Richard Mcintyre MD #### [id number] #### [facility] [address] [place], [place] Boring Machine Operator Helper: Petey Chaves M.D.,PhDEosinophils (Bld) [#/Vol]0.251 10*3/uL [id number] DiagnosticsComment on above:Performed By: #### 50907, 760, 6399 #### [facility] [place] [address] [place] , [address] [place], [place] [id number] Boring Machine Operator Helper: Richard Mcintyre MD #### [id number] #### [facility]/[address] [place], [place] Boring Machine Operator Helper: Petey Chaves M.D.,PhDEosinophils/100 WBC (Bld)3.3 %Normal Quest DiagnosticsComment on above:Performed By: #### 54672, 760, 6399 #### [facility] of [address] , [address] [place], [place] [address] Boring Machine Operator Helper: Richard Mcintyre MD #### [id number] #### [facility] [address] [place] Boring Machine Operator Helper: Petey Chaves M.D.,PhDErythrocyte distribution width (RBC) [Ratio]12.6 %Ekdlam17.0-15.0Quest DiagnosticsComment on above:Performed By: #### 04358, 7599, 6399 #### [facility] of [address], [address] [place], [place] [id number] Boring Machine Operator Helper: Richard Mcintyre MD #### [id number] #### [facility]/[place] [address] [facility] [address] [place] Boring Machine Operator Helper: Petey Chaves M.D.,PhDHematocrit (Bld) [Volume fraction]46.4 %High35.0-45.0Quest DiagnosticsComment on above:Performed By: #### 46925, 7599, 6399 #### [facility] of [address], [address] [place], [place] [address] Boring Machine Operator Helper: Richard Mcintyre MD #### [id number] #### [facility]/[address] [place], [place] Boring Machine Operator Helper: Petey Chaves M.D.,PhDHemoglobin (Bld) [Mass/Vol]15.6 g/dL High11.7-15.5Quest DiagnosticsComment on above:Performed By: #### 56861, 7599, 6399 #### [facility] of [address], [address] [place], [place] [id number] Boring Machine Operator Helper: Richard Mcintyre MD #### [id number] #### [facility]/[address] [place] Boring Machine Operator Helper: Petey Chaves M.D.,PhDLymphocytes (Bld) [#/Vol]3.078 10*3/uL [id number] DiagnosticsComment on above:Performed By: #### 25735, 7599, 6399 #### [facility] of [address], [address] [place], [place] [address] Boring Machine Operator Helper: Richard Mcintyre MD #### 71856 #### [facility]/[address] [place], [place] Boring Machine Operator Helper: Petey Chaves M.D.,PhDLymphocytes/100 WBC (Bld)40.5 %Normal Quest DiagnosticsComment on above:Performed By: #### 53845, 0, 6347 #### [facility] [address], [address] [place], [place] [id number] Boring Machine Operator Helper: Richard Mcintyre MD #### 18124 #### [facility]/[address] [place], [place] Boring Machine Operator Helper: Petey Chaves M.D.,PhDPECONIC BAY MEDICAL CENTER (RBC) [Entitic mass]31.0 pgNormal 27.0-33.0Quest DiagnosticsComment on above:Performed By: #### 50154, 7599, 3199 #### [facility] [address], [address] [place] [address] Boring Machine Operator Helper: Richard Mcintyre MD #### [id number] #### [facility]/[address] [place] Boring Machine Operator Helper: Petey Chaves M.D.,PhDHEALTHALLIANCE HOSPITAL: [facility] (RBC) [Mass/Vol]33.6 g/dLNormal 32.0-36.0Quest DiagnosticsComment on above:Result Comment: For adults, a slight decrease in the calculated MCHC value (in the range of 30 to 32 g/dL) is most likely not clinically significant; however, it should be interpreted with caution in correlation with other red cell parameters and the patient's clinical condition.Performed By: #### 68449, 7599, 9499 #### [facility] [address], [address] [place], [place] [address] Boring Machine Operator Helper: Richard Mcintyre MD #### [id number] #### [facility] [address] [place], [place] Boring Machine Operator Helper: Petey Chaves M.D.,PhDNORTHWEST CENTER FOR BE[facility]AV[facility] (RBC) [Entitic vol]92.1 fLNormal 80.0-100.0Quest DiagnosticsComment on above:Performed By: #### 85913, 7599, 6399 #### [facility] of [address], [address] [place], [place] [address] Boring Machine Operator Helper: Richard Mcintyre MD #### [id number] #### [facility]/[place] [address] [facility] [place], [place] Boring Machine Operator Helper: Petey Chaves M.D.,PhDMonocytes (Bld) [#/Vol]0.57 10*3/uL [id number] DiagnosticsComment on above:Performed By: #### 56603, 7599, 6399 #### [facility] of [place] [id number] Boring Machine Operator Helper: Richard Mcintyre MD #### 92986 #### [facility]/[address] [place], [place] Boring Machine Operator Helper: Petey Chaves M.D.,PhDMonocytes/100 WBC (Bld)7.5 %Normal Quest DiagnosticsComment on above:Performed By: #### 81988, 7599, 9399 #### [facility] of [place] [id number] Boring Machine Operator Helper: Rihcard Mcintyre MD #### 64121 #### [facility]/[address] [place], [place] Boring Machine Operator Helper: Petey Chaves M.D.,PhDNeutrophils (Bld) [#/Vol]3.663 10*3/uL [id number] DiagnosticsComment on above:Performed By: #### 35826, 7599, 6399 #### [facility] of [place] [id number] Boring Machine Operator Helper: Richard Mcintyre MD #### 15957 #### [facility]/[address] [place] Boring Machine Operator Helper: Petey Chaves M.D.,PhDNeutrophils/100 WBC (Bld)48.2 %Normal Quest DiagnosticsComment on above:Performed By: #### 16123, 7600, 6399 #### [facility] of [address], [address] [place] [address] Boring Machine Operator Helper: Richard Mcintyre MD #### [id number] #### [facility]/[address] [place] Boring Machine Operator Helper: Petey Chaves M.D.,PhDPlatelet mean volume (Bld) [Entitic vol]10.2 fLNormal7.5-12.5Quest DiagnosticsComment on above:Performed By: #### 53891, 7600, 6399 #### [facility] of [address], [address] [place] [address] Boring Machine Operator Helper: Richard Mcintyre MD #### [id number] #### [facility]/[address] [place] Boring Machine Operator Helper: Petey Chaves M.D.,PhDPlatelets (Bld) [#/Vol]327 10*3/uL Gowmko469-812Mzyyq DiagnosticsComment on above:Performed By: #### 31253, 7600, 6399 #### [facility] of [place] [address], [address] [place] [address] Boring Machine Operator Helper: Richard Mcintyre MD #### [id number] #### [facility]/[place] [address] [facility] [place] Boring Machine Operator Helper: Petey Chaves M.D.,PhDRBC (Bld) [#/Vol]5.04 10*6/uLNormal 3.80-5.10Quest DiagnosticsComment on above:Performed By: #### 30262, 7600, 6399 #### [facility] of [place] [address], [address] [place] [address] Boring Machine Operator Helper: Richard Mcintyre MD #### [id number] #### [facility]/[place] [address] [facility] [address] [place] Boring Machine Operator Helper: Petey Chaves M.D.,PhDWBC (Bld) [#/Vol]7.6 10*3/uLNormal 3.8-10.8Quest DiagnosticsComment on above:Performed By: #### 14681, 8180, 6399 #### [facility] [address], [address] [place] [address] Boring Machine Operator Helper: Richard Mcintyre MD #### [id number] #### [facility] [address] [place] Boring Machine Operator Helper: Petey Chaves M.D.,PhDCOMPREHENSIVE METABOLIC PANEL 76-83-4706Cyxicfv [Mass/Vol]4.4 g/dLNormal3.6-5.1Quest DiagnosticsComment on above:Performed By: #### 26340, 3430, 6399 #### [facility] [address], [address] [place] [address] Boring Machine Operator Helper: Richard Mcintyre MD #### [id number] #### [facility] [address] [facility] [address] [place] Boring Machine Operator Helper: Petey Chaves M.D.,PhDAlbumin/Globulin [Mass ratio]1.9 {ratio}Normal1.0-2.5Quest DiagnosticsComment on above:Performed By: #### 35102, 5080, 5799 #### [facility] [address], [address] [place] [address] Boring Machine Operator Helper: Richard Mcintyre MD #### [id number] #### [facility] [address] [place] Boring Machine Operator Helper: Petey Chaves M.D.,PhDALP [Catalytic activity/Vol]72 U/L Elzumd58-588Ikdwa DiagnosticsComment on above:Performed By: #### 37298, 6940, 6399 #### [facility] of [address], [address] [place], [place] [address] Boring Machine Operator Helper: Richard Mcintyre MD #### [id number] #### [facility]/[place] [address] [facility] [place], [place] Boring Machine Operator Helper: Petey Chaves M.D.,PhDALT [Catalytic activity/Vol]28 U/L Normal6-29Quest DiagnosticsComment on above:Performed By: #### 17249, 432, 5999 #### [facility] of [place] [id number] Boring Machine Operator Helper: Richard Mcintyre MD #### [id number] #### [facility]/[address] [place] Boring Machine Operator Helper: Petey Chaves M.D.,PhDAST [Catalytic activity/Vol]22 U/L Moitoz54-88Etsnh DiagnosticsComment on above:Performed By: #### 20809, 228, 6399 #### [facility] of [place] [id number] Boring Machine Operator Helper: Richard Mcintyre MD #### [id number] #### [facility]/[address] [place] Boring Machine Operator Helper: Petey Chaves M.D.,PhDBilirubin [Mass/Vol]0.7 mg/dLNormal 0.2-1.2Quest DiagnosticsComment on above:Performed By: #### 79146, 690, 1599 #### [facility] of [place] [id number] Boring Machine Operator Helper: Richard Mcintyre MD #### [id number] #### [facility]/[address] [place] Boring Machine Operator Helper: Petey Chaves M.D.,PhDBUN/CREATININE RATIOSEE NOTE:Normal 6-22Quest DiagnosticsComment on above:Result Comment: Not Reported: BUN and Creatinine are within reference range.Performed By: #### 34334, 7600, 6399 #### [facility] [address], [address] [place] [address] Boring Machine Operator Helper: Richard Mcintyre MD #### [id number] #### [facility]/[place] [address] [facility] [place], [place] Boring Machine Operator Helper: Petey Chaves M.D.,PhDCalcium [Mass/Vol]9.5 mg/dLNormal 8.6-10.4Quest DiagnosticsComment on above:Performed By: #### 11408, 632, 9299 #### [facility] [address], [address] [place] [address] Boring Machine Operator Helper: Richard Mcintyre MD #### [id number] #### [facility]/[address] [place], [place] Boring Machine Operator Helper: Petey Chaves M.D.,PhDChloride [Moles/Vol]106 mmol/LNormal 98-110Quest DiagnosticsComment on above:Performed By: #### 75849, 0960, 9099 #### [facility] of [address], [address] [place] [address] Boring Machine Operator Helper: Richard Mcintyre MD #### 85249 #### [facility]/[place] [address] [facility] [place], [place] Boring Machine Operator Helper: Petey Chaves M.D.,PhDCO2 [Moles/Vol]29 mmol/HHplvjg98-77 Quest DiagnosticsComment on above:Performed By: #### 71766, 6320, 5899 #### [facility] of [address], [address] [place], [place] [address] Boring Machine Operator Helper: Richard Mcintyre MD #### [id number] #### [facility] [address] [place] Boring Machine Operator Helper: Petey Chaves M.D.,PhDCreatinine [Mass/Vol]0.70 mg/dLNormal 0.50-1.05Quest DiagnosticsComment on above:Performed By: #### 69209, 0, 6399 #### [facility] of [address], [address] [place], [place] [address] Boring Machine Operator Helper: Richard Mcintyre MD #### [id number] #### [facility] [address] [place] Boring Machine Operator Helper: Petey Chaves M.D.,PhDGFR/1.73 sq M.predicted among non- blacks MDRD (S/P/Bld) [Vol rate/Area]95 mL/min/{1.73_m2}Normal> OR = 60Quest DiagnosticsComment on above:Performed By: #### 61430, 3820, 8599 #### [facility] [address], [address] [place] [address] Boring Machine Operator Helper: Richard Mcintyre MD #### [id number] #### [facility] [address] [place] Boring Machine Operator Helper: Petey Chaves M.D.,PhDGlobulin (S) [Mass/Vol]2.3 g/dLNormal 1.9-3.7Quest DiagnosticsComment on above:Performed By: #### 45009, 4140, 6399 #### [facility] [address], [address] [place], [place] [address] Boring Machine Operator Helper: Richard Mcintyre MD #### 35512 #### [facility] [address] [place] Boring Machine Operator Helper: Petey Chaves M.D.,PhDGlucose [Mass/Vol]87 mg/dIPykfio18-612 Quest DiagnosticsComment on above:Result Comment: Non-fasting reference intervalPerformed By: #### 09005, 7599, 1256 #### [facility] of [address], [address] [place], [place] [address] Boring Machine Operator Helper: Richard Mcintyre MD #### 54577 #### [facility]/[place] [address] [facility] [place] Boring Machine Operator Helper: Petey Chaves M.D.,PhDPotassium [Moles/Vol]3.9 mmol/LNormal 3.5-5.3Quest DiagnosticsComment on above:Performed By: #### 31254, 393, 7260 #### [facility] of [address], [address] [place], [place] [address] Boring Machine Operator Helper: Richard Mcintyre MD #### 23053 #### [facility]/[address] [place], [place] Boring Machine Operator Helper: Petey Chaves M.D.,PhDProtein [Mass/Vol]6.7 g/dLNormal 6.1-8.1Quest DiagnosticsComment on above:Performed By: #### 30856, 316, 3228 #### [facility] [address] Boring Machine Operator Helper: Richard Mcintyre MD #### 66915 #### [facility]/[address] [place], [place] Boring Machine Operator Helper: Petey Chaves M.D.,PhDSodium [Moles/Vol]143 mmol/LNormal 135-146Quest DiagnosticsComment on above:Performed By: #### 87069, 428, 1406 #### [facility] of [place] [id number] Boring Machine Operator Helper: Richard Mcintyre MD #### 94637 #### [facility]/[place] [address] [facility] [address] [place] Boring Machine Operator Helper: Petey Chaves M.D.,PhDUrea nitrogen [Mass/Vol]11 mg/dLNormal -Quest DiagnosticsComment on above:Performed By: #### 06316, 7600, 6399 #### [facility] [address], [address] [place], [place] [address] Boring Machine Operator Helper: Richard Mcintyre MD #### 39697 #### [facility] [address] [place] Boring Machine Operator Helper: Petey Chaves M.D.,PhDHEPATITIS C AB W/RFL RNA, PCR W/RFL GENOTYPE,LIPAo 13-48-2151FBMJMSQMM C ANTIBODYNon-ReactiveNormalQuest DiagnosticsComment on above:Result Comment: HCV antibody was non-reactive. There is no laboratory evidence of HCV infection. In most cases, no further action is required. However, if recent HCV exposure is suspected, a test for HCV RNA (test code 70137) is suggested. REFERENCE RANGE: NONREACTIVE For additional information, please refer to http://education.Noom/faq/VLT932 (This link is being provided for informational/ educational purposes only.)Performed By: #### 60947, 0660, 6339 #### [facility] [address], [address] [place], [place] [address] Boring Machine Operator Helper: Richard Mcintyre MD #### 59261 #### [facility] [place], [place] Boring Machine Operator Helper: Petey Chaves M.D.,PhDLIPID PANEL, [facility] 02-14-2024 Cholesterol [Mass/Vol]247 mg/dLHigh<200Quest DiagnosticsComment on above:Order Comment: FASTING:NO FASTING: NOPerformed By: #### 62499, 0050, 6399 #### [facility] [address], [address] [place], [place] [address] Boring Machine Operator Helper: Richard Mcintyre MD #### 65784 #### [facility] [address] [facility] [address] [place] Boring Machine Operator Helper: Petey Chaves M.D.,PhDCholesterol in HDL [Mass/Vol]58 mg/dL Normal> OR = 50Quest DiagnosticsComment on above:Order Comment: FASTING:NO FASTING: NOPerformed By: #### 54568, 6270, 9799 #### [facility] [address], [address] [place], [place] [address] Boring Machine Operator Helper: Richard Mcintyre MD #### [id number] #### [facility]/[place] [facility] [address] [place] Boring Machine Operator Helper: Petey Chaves M.D.,PhDCholesterol in LDL [Mass/Vol]168 mg/dL HighQuest DiagnosticsComment on above:Order Comment: FASTING:NO FASTING: NOResult Comment: Reference range: <100 Desirable range <100 mg/dL for primary prevention; <70 mg/dL for patients with CHD or diabetic patients with > or = 2 CHD risk factors. LDL-C is now calculated using the Dillon-Clifford calculation, which is a validated novel method providing better accuracy than the Friedewald equation in the estimation of LDL-C. Dillon DOWNING et al. GERRI. 2013;310(19): 6397-3149 (http://education.[employer]/faq/HGA694)Performed By: #### 87181, 959, 6399 #### [facility] [address], [address] [place], [place] [address] Boring Machine Operator Helper: Richard Mcintyre MD #### 28003 #### [facility] [address] [place] Boring Machine Operator Helper: Petey Chaves M.D.,PhDCholesterol.total/Cholesterol in HDL [Mass ratio]4.3 {ratio}Normal<5.0Quest DiagnosticsComment on above:Order Comment: FASTING:NO FASTING: NOPerformed By: #### 21989, 7600, 6399 #### [facility] [address], [address] [place] [address] Boring Machine Operator Helper: Richard Mcintyre MD #### 71442 #### [facility]/[address] [place] Boring Machine Operator Helper: Petey Chaves M.D.,PhDNON HDL FDVUCPKCDUD238 mg/dL (calc) High<130Quest DiagnosticsComment on above:Order Comment: FASTING:NO FASTING: NOResult Comment: For patients with diabetes plus 1 major ASCVD risk factor, treating to a non-HDL-C goal of <100 mg/dL (LDL-C of <70 mg/dL) is considered a therapeutic option.Performed By: #### 65288, 7600, 6399 #### [facility] [address], [address] [place] [address] Boring Machine Operator Helper: Richard Mcintyre MD #### 66393 #### [facility]/[address] [place], [place] Boring Machine Operator Helper: Petey Chaves M.D.,PhDTriglyceride [Mass/Vol]101 mg/dLNormal <150Quest DiagnosticsComment on above:Order Comment: FASTING:NO FASTING: NOPerformed By: #### 70016, 7600, 6399 #### [facility] [address], [address] [place] [address] Boring Machine Operator Helper: Richard Mcintyre MD #### [id number] #### [facility]/[address] [place] Boring Machine Operator Helper: Petey Chaves M.D.,PhDUrology Office/Clinic Noteon [id number] Office/Clinic NoteUrology Office/Clinic Note Chief Complaint 4 mth follow up HPI Staff 68 year old female patient here for a 4 month follow up from cysto/UD. Previous Dx: DX: Urge Incontinence, Frequency & OAB. *Oxybutynin ER 15 mg qd started at last OV, uses estradiol cream 2x a week. S/P cysto with UD 08/22/23. Dysuria: no Incomplete bladder emptying: no Hematuria: no Frequency: q3-4 hrs Urgency: no Nocturia: 1x Stream: normal Leaking: no Post void dripping: no Wearing pads/ Depends: no Urge incontinence: no Stress incontinence: no Incontinence without Sensory Awareness: no Abdominal pain: no Flank pain: no Sexual complaints: History of Present Illness Tests reviewed: reviewed UA, operative report I have reviewed the previous health record information and history for this patient from Dr. Stoner. I have reviewed and verified the staff HPI to be accurate for this encounter. Review of Systems PHQ Score Initial Depression Screen Score: 0 SCORE ROS - Provider Constitutional: denies weight loss, denies hot flashes. Eyes: denies eye problems. Gastrointestinal: denies nausea, denies vomiting. Cardiovascular: denies chest pain or angina. Integumentary: no dryness Musculoskeletal: denies musculoskeletal symptoms. ENMT: denies otolaryngeal symptoms. Respiratory: no shortness of breath. Heme/Lymph: denies easy bleeding tendency, denies easy bruising tendency. Psychiatric: no confusion, no anxiety. Genitourinary: See HPI. Physical Exam Vitals & Measurements HR: 92(Peripheral) BP: 126/82 HT: 63 in HT: 159 cm WT: 67.3 kg WT: 148.06 lb BMI: 26.62 General Appearance: alert , no acute distress, well nourished, well developed female. Assessment/Plan 1. Urge incontinence (N39.41: Urge incontinence) PVR 05/03/23 - 0 mL. Stopped Myrbetriq 50mg qd at prior OV due to cost and started on Oxybutynin ER 15 mg qd. Has been taking Oxybutynin. Reports SE of dry mouth and constipation but does not feel either is bothersome. Feels constipation is controlled with supplements. No longer wearing pads. Feels she empties. Gettingup 1x/night, not bothersome. -Cont Oxybutynin wo changes. Call for refills. -F/u in 4 mos w/ PVR 2. Abnormal urinalysis (R82.90: Unspecified abnormal findings in urine) UA today shows small blood, moderate leuks, and positive nitrites. Had frequency last week when shehad a decreased appetite d/t not feeling well (ongoing issue per pt, always feels diet is related to frequency). Denies pain/burning with urination or foul-smelling urine. Feels she empties completely at this time. Wipes front to back. -Urine sample to be sent for culture. Will call pt with results and treat if positive. 3. Vaginal atrophy (N95.2: Postmenopausal atrophic vaginitis) Started on Estradiol cream at time of cysto/UD. Has been using this 2x/wk. Used plunger at first but felt she was better able to use her finger for application. Feels this keeps sac away which she had previously, unsure of what prior dx was (possible cystococele). 4. Unspecified urethral stricture, female (N35.92: Unspecified urethral stricture, female) S/p Cysto/UD 08/22/23 - Tight, dry, brittle urethra. Dilated to 30Fr. Follow-up With When Contact Information HERBIE GARCIA, Petey Duncan, [facility] [address], [place] [phone] Additional Instructions: 4 mos w/ PVR Patient Education Atrophic Vaginitis Bianka Ochoa, personally scribed for Dr. Stoner on 12/25/2023 10:27:54. . Documentation recorded by the scribe, Bianka Cason, accurately reflects the services(s) I performed and decisions made by me. Authenticated by Dr. Stoner on 12/25/2023 10:36:45. Problem List/Past Medical History Ongoing Abnormal urinalysis Chronic obstructive pulmonary disease Cystourethrocele Diverticulitis Hyperlipidemia OAB (overactive bladder) Trigger thumb left Unspecified urethral stricture, female Urge incontinence Urinary frequency Vaginal atrophy Historical No qualifying data Procedure/Surgical History Injection of sacroiliac joint using fluoroscopic guidance (09/02/2020), Injection of sacroiliac joint using fluoroscopic guidance (02/18/2019), Injection of sacroiliac joint using fluoroscopic guidance (01/16/2018), Trigger thumb of left hand (10/15/2012), Spinal fusion (08/02/2011), Hysterectomy (0 03/20/2008), Elbow (07/2004), Tubal ligation (02/17/1985), Breast biopsy and related procedures, Colonoscopy, Tonsillectomy. Medications Caltrate 600 + D, 1 tab(s), Oral, Daily Cipro 500 mg Tab, 500 mg= 1 tab(s), Oral, Daily Claritin-D, 1 tab(s), Oral, Daily estradiol 0.1 mg/g Vag Crm, 1 gm, Vaginal, MonFri, 6 refills Multivitamins and Minerals, Daily oxybutynin 15 mg ER Tab, 15 mg= 1 tab(s), Oral, Daily, 11 refills Allergies No Known Allergies Social History Alcohol - Denies Alcohol Use, 07/30/2020 Substance Abuse - Low Risk, 07/30/2020 Current, (more content not included)...[facility]Comment [facility]:Result Comment: Electronically Signed By: Petey STONER MD\.br\Date and Time Signed: 12/25/23 10:36 EDT\.br\Electronically Co-Signed By: Bianka Cason\.br\Date and Time Co-Signed: 12/25/23 10:28 EDTConsent for Procedure/Surgeryon 76-56-8116[facility]brpt for Procedure/Surgery [id number]#1.00TIFTrinity Health SystemConsent for Treatmenton 97-12-5915Zymglsq for Treatment [id number]#1.00TIFTrinity Health SystemIntraOperative Documentson [id number] Documents [id number] Health SystemMain OR Intraoperative Recordon [id number] OR Intraoperative Record IntraOp Document Type FTURO Summary Primary Physician: Petey STONER MD Finalized Date/Time: 08/22/23 10:35:48 Pt. Name: JEANIE HARDIN/Sex: 1955 Female Med Rec #: [id number] Physician: Petey STONER MD Financial #: [id number] Pt. Type: O Room/Bed: / Admit/Disch: 08/22/23 08:49:57 - Institution: Case Times FTURO Entry 1 Patient Times In Room 08/22/23 10:14:00 Out Room 08/22/23 10:32:00 Procedure Times Start 08/22/23 10:25:00 Stop 08/22/23 10:28:00 Anesthesia Times Last Modified By: Maryjo HERRING, Taryn Mallory 08/22/23 10:28:43 Case Attendance FTURO Entry 1 Entry 2 Entry 3 Case Attendee HERBIE GARCIA, Petey Sibley RN, Taryn Vazquez CST, Jena Mallory Role Performed Surgeon - Primary Technical Engineer - Primary Scrub - Primary Time In 08/22/23 10:14:00 08/22/23 10:14:00 08/22/23 10:14:00 Time Out 08/22/23 10:32:00 08/22/23 10:32:00 08/22/23 10:32:00 Procedure CYSTOSCOPY LOCAL WITH CYSTOSCOPY LOCAL WITH CYSTOSCOPY LOCAL WITH URETHRAL DILATION(.) URETHRAL DILATION(.) URETHRAL DILATION(.) Comments Last Modified By: Maryjo HERRING, Taryn Sibley RN, Taryn Sibley RN, Taryn Mallory 08/22/23 Pallavi P 08/22/23 Pallavi P 08/22/23 10:28:47 10:28:47 10:28:47 Surgical Procedures FTURO Entry 1 Procedure Description Procedure CYSTOSCOPY LOCAL WITH Modifiers . URETHRAL DILATION Surgeon Description CYSTOSCOPY WITH URETHRAL DILATION Primary Procedure Yes Primary Surgeon Petey STONER MD Start 08/22/23 10:25:00 Stop 08/22/23 10:28:00 Anesthesia Type Local Surgical Service Urology Wound Class 2 - Clean-Contaminated Last Modified By: Maryjo HERRING, Taryn Mallory 08/22/23 10:28:46 General Case Data FTURO Pre-Care Text: Classifies surgical wound, implements aseptic technique, initiates traffic control Entry 1 Case Information OR URO 1 FT Case Level None Wound Class 2 - Clean-Contaminated Specialty Urology Preop Diagnosis URGE INCONTINENCE, Postop Same As Preop Yes OVERACTIVE BLADDER Postop Diagnosis URGE INCONTINENCE, Outcomes Met? Yes OVERACTIVE BLADDER Last Modified By: Taryn Sibley RN 08/22/23 09:52:03 Post-Care Text: The patient is free from signs and symptoms of infection EU IntraOp - FTURO Pre-Care Text: Implements protective measures prior to operative or invasive procedure, confirms identity before the operative or invasive procedure, verifies operative procedure, surgical site, and laterality Entry 1 EU Perioperative Protocols Procedure(s) CYSTOSCOPY LOCAL WITH Patient Identity Birthday, ID Band URETHRAL DILATION(.) Verified (select at Check, Patient least 2): Participation Consents / H and P HandP, Surgery/Procedure Operative Site N/A Verified Consent Marking Verified Surgical Site Yes Laterality Verified n/a Verified Procedure Verified Yes Correct Patient Yes Position Verified Availability Equipment, Medication Time Out HERBIE GARCIA, Petey Duncan, Verified (If Participants Taryn Sibley RN Applicable) George Alexandre CST, Kimberly A Time Out Complete 08/22/23 10:25:00 Allergies Reviewed? Yes Allergies Reviewed Self/Patient With Body Position Frog Legged Prep Area PERINEAL AREA Prep Agents Betadine Solution Skin. Condition Unable to Visualize Description CLOTHED Additional None Specimens Collected Vitals - EU Blood Pressure 133/82 Pulse 87 bpm Respirations 12 br/min SPO2 IandO - EU Outcomes Met? Yes Last Modified By: Taryn Sibley RN 08/22/23 10:25:23 Post-Care Text: The patient is free from signs and symptoms of injury caused by extraneous objects Sign Out FTURO Entry 1 Before Patient Leaves OR Nurse verbally Yes Nurse verbally Yes confirms with the confirms with the team the name of team that the procedure(s) instrument, sponge, recorded and needle counts are correct (or N/A) Nurse verbally n/a Nurse verbally Yes confirms with the confirms with the team how the team whether there specimen is labeled are any equipment (including patient problems to be name), if applicable addressed Sign Out Complete 08/22/23 10:28:00 Last Modified By: Taryn Sibley RN 08/22/23 10:28:46 Case Comments Finalized By: Taryn Sibley RN Document Signatures Signed By: Taryn Sibley RN 08/22/23 10:28 Taryn Sibley RN 08/22/23 10:35NoAdena Pike Medical CenterMain OR Preoperative Recordon [id number] OR Preoperative RecordHolding Area Document Type FTURO Summary Primary Physician: Petey STONER MD Finalized Date/Time: 08/22/23 09:48:31 Pt. Name: JEANIE HARDINO.B./Sex: 1955 Female Med Rec #: [id number] Physician: Petey STONER MD Financial #: [id number] Pt. Type: O Room/Bed: / Admit/Disch: 08/22/23 08:49:57 - Institution: Case Times Holding FTURO Pre-Care Text: Verifies consent for planned procedure, identifies individual values and wishes concerning care, includes family members in perioperative teaching Secures patient's records' belongings, and valuables, maintains patient's dignity and privacy, and maintains patient confidentiality Entry 1 In Holding 08/22/23 09:39:00 Outcomes Met? Yes Last Modified By: LASHANDA Muñiz RN, Ruthann 08/22/23 09:39:38 Post-Care Text: The patient participates in decisions affecting his or her perioperative plan of care The patient'sright to privacy is maintained Surgery Checklist FTURO Entry 1 Patient Birthday, ID Band Procedure History and Physical, Identification: Check, Patient Verification: Surgical Consent, With Participation Patient NPO after Midnight: n/a Date/Time: 08/22/23 09:40:00 Personal Items clothes Limitations: none Comment: Complaints of Pain: No Skin Integrity Unable to Visualize Vitals - EU Blood Pressure 133/82 Pulse 87 bpm Respirations 12 br/min SPO2 Additional None RN Reviewed Yes Specimens Collected Last Modified By: LASHANDA Muñiz RN, Ruthann 08/22/23 09:43:22 Finalized By: LASHANDA Muñiz RN, Ruthann Document Signatures Signed By: LASHANDA Muñiz RN, Ruthann 08/22/23 09:43 LASHANDA Muñiz RN, Ruthann 08/22/23 09:48NoAdena [facility] Operative Reporton [id number] ReportPatient: JEANIE HARDIN Age: 67 years Sex: Female : 1955 Associated Diagnoses: None Author: Petey STONER MD Procedure Operative Information Details: Date/ Time: 08/22/2023 10:35:00. Pre-Op Dx: Urgency Incontinence - N39.41, Frequency - R35.0. Post-Op Dx: Same, Urethral stenosis and moderate to severe atrophic vaginitis. Anesthesia Type: Local. Procedure: Local Cystoscopy with Urethral Dilation. Complications: None. Risks/Benefits/Informed Consent: Surgical risks, benefits, details of the procedure have been explained to the patient, Full informed consent has been obtained. Intraoperative Information Prepped: Patient is brought back to the endoscopy suite, Patient is placed in modified dorso/lithotomy position, Patient prepped in the usual fashion with Betadine solution, 2% Xylocaine Jelly is placed per Urethra, After waiting several minutes the Cystoscope is introduced. The Urethra is: Tight, Dry and brittle urethra. The Bladder is: No bladder tumors. No JOHANNE. No prolapse. Moderate to severe atrophic vaginitis. The ureteral orifices: Show efflux of clear urine. The Urethra was dilated to: 30 Greek w/ sounds. Devices Implanted: None. Removal: Cystoscope is removed, The patient tolerated it well. Postoperative Information Discharge: Patient is discharged home with antibiotic coverage, Follow up arranged. Patient will start estradiol cream 1 g intravaginally twice weekly and a small amount to be rubbed around the urethra.[facility] HospitalComment on above:Result Comment: Electronically Signed By: HERBIE GARCIA, Petey Duncan\.br\Date and Time Signed: 08/22/23 10:37 EDTOutpatient Surgery Discharge Instructionon [id number] Surgery Discharge Instruction [id number] Pike Medical CenterProgress Note-Physicianon [id number] Note-PhysicianPatient: JEANIE HARDIN Age: 67 years Sex: Female : 1955 Associated Diagnoses: None Author: Petey STONER MD Subjective X this lady has rather significant urinary frequency, urgency and urge incontinence. She is on oxybutynin ER 15 mg daily. Cystoscopy and urethral dilation was done today. She had rather significant atrophic vaginitis and urethral stenosis. Review of Systems ROS reviewed as documented in chart Health Status Allergies: Allergic Reactions (Selected) No Known Allergies Current medications: Home Medications (6) Active Caltrate 600 + D 1 tab(s), Oral, Daily Cipro 500 mg Tab 500 mg = 1 tab(s), Oral, Daily Claritin-D 1 tab(s), Oral, Daily estradiol 0.1 mg/g Vag Crm 1 gm, Vaginal, MonFri Multivitamins and Minerals , Daily oxybutynin 15 mg ER Tab 15 mg = 1 tab(s), Oral, Daily Problem list: All Problems Trigger thumb left / SNOMED CT 65762101 / Confirmed Cystourethrocele / SNOMED CT 37714145 / Confirmed Diverticulitis / SNOMED CT 554459025 / Confirmed Chronic obstructive pulmonary disease / SNOMED CT 34308828 / Confirmed Hyperlipidemia / SNOMED CT 51597456 / Confirmed Urge incontinence / SNOMED CT 836278990 / Confirmed Urinary frequency / SNOMED CT 947976937 / Confirmed OAB (overactive bladder) / SNOMED CT 3258104888 / Confirmed Histories Past Medical History: No active or resolved past medical history items have been selected or recorded. Family History: Primary malignant neoplasm of bladder Brother Procedure history: Injection of sacroiliac joint using fluoroscopic guidance ([id number]) on 09/02/2020 at 64 Years. Comments: 09/24/2020 8:55 EDT - Lona Verdugo 85% relief Injection of sacroiliac joint using fluoroscopic guidance ([id number]) on 02/18/2019 at 63 Years. Injection of sacroiliac joint using fluoroscopic guidance (4973700166) on 01/16/2018 at 62 Years. Trigger thumb of left hand ([id number]) on 10/15/2012 at 57 Years. Spinal fusion (31383505) on 08/02/2011 at 55 Years. Hysterectomy, bladder suspension & rectal repair (773519359) on 03/20/2008 at 52 Years. Elbow- tendons removed (1750665291) in the month of 07/2004 at 48 Years. Comments: 07/29/2020 8:33 EDT - Liv HERRING, Jocelyn tendons removed bilat elbows Tubal ligation ([id number]) on 02/17/1985 at 29 Years. Breast biopsy and related procedures (469601332). Colonoscopy (182444567). Tonsillectomy (600344092). Social History Social & Psychosocial Habits Alcohol 07/17/2023 Risk Assessment: Denies Alcohol Use Substance Abuse 07/17/2023 Risk Assessment: Low Risk 07/17/2023 Use: Current Type: Marijuana Comment: occassionally - 07/30/2020 09:42 - Liv HERRING, Jocelyn Tobacco 07/17/2023 Tobacco Use: Former smoker, quit more Smokeless tobacco use: Never Type: Cigarettes Started at age: 16.0 Years Stopped at age: 53 Years . Objective Afebrile vital signs are stable. She is resting in no acute distress. Abdomen is soft and nontender. Vaginal exam reveals significant atrophic vaginitis with a narrow introitus. Brittle urethra is noted. Impression and Plan Impression: #1. 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 2. She has urinary frequency and urge incontinence. Plan: #1. She will start estradiol cream 1 g intravaginally twice weekly. She will also rub a smallamount around the urethra at bedtime. 2. She will continue her oxybutynin ER 15 mg daily. 3. Follow-up will be in 4 months for reevaluation.[facility] HospitalComment on above:Result Comment: Electronically Signed By: HERBIE GARCIA, Petey Diaz.br\Date and Time Signed: 08/22/23 10:40 EDTPatient Educationon [id number] EducationUrology Urinary Incontinence Urinary incontinence refers to a condition in which a person is unable to control where and when topass urine. A person with this condition will urinate involuntarily. This means that the person urinates when he or she does not mean to. What are the causes? This condition may be caused by: ? Medicines. ? Infections. ? Constipation. ? Overactive bladder muscles. ? Weak bladder muscles. ? Weak pelvic floor muscles. These muscles provide support for the bladder, intestine, and, in women, the uterus. ? Enlarged prostate in men. The prostate is a gland near the bladder. When it gets too big, it can pinch the urethra. With the urethra blocked, the bladder can weaken and lose the ability to empty properly. ? Surgery. ? Emotional factors, such as anxiety, stress, or post-traumatic stress disorder (PTSD). ? Spinal cord injury, nerve injury, or other neurological conditions. ? Pelvic organ prolapse. This happens in women when organs move out of place and into the vagina. This movement can prevent the bladder and urethra from working properly. What increases the risk? The following factors may make you more likely to develop this condition: ? Age. The older you are, the higher the risk. ? Obesity. ? Being physically inactive. ? and childbirth. ? Menopause. ? Diseases that affect the nerves or spinal cord. ? Long-term, or chronic, coughing. This can increase pressure on the bladder and pelvic floor muscles. What are the signs or symptoms? Symptoms may vary depending on the type of urinary incontinence you have. They include: ? A sudden urge to urinate, and passing urine involuntarily before you can get to a bathroom (urge incontinence). ? Suddenly passing urine when doing activities that force urine to pass, such as coughing, laughing, exercising, or sneezing (stress incontinence). ? Needing to urinate often but urinating only a small amount, or constantly dribbling urine (overflow incontinence). ? Urinating because you cannot get to the bathroom in time due to a physical disability, such as arthritis or injury, or due to a communication or thinking problem, such as Alzheimer's disease (functional incontinence). How is this diagnosed? This condition may be diagnosed based on: ? Your medical history. ? A physical exam. ? Tests, such as: ? Urine tests. ? X-rays of your kidney and bladder. ? Ultrasound. ? CT scan. ? Cystoscopy. In this procedure, a health care provider inserts a tube with a light and camera (cystoscope) through the urethra and into the bladder to check for problems. ? Urodynamic testing. These tests assess how well the bladder, urethra, and sphincter can store andrelease urine. There are different types of urodynamic tests, and they vary depending on what the test is measuring. To help diagnose your condition, your health care provider may recommend that you keep a log of when you urinate and how much you urinate. How is this treated? Treatment for this condition depends on the type of incontinence that you have and its cause. Treatment may include: ? Lifestyle changes, such as: ? Quitting smoking. ? Maintaining a healthy weight. ? Staying active. Try to get 150 minutes of moderate-intensity exercise every week. Ask your healthcare provider which activities are safe for you. ? Eating a healthy diet. ? Avoid high-fat foods, like fried foods. ? Avoid refined carbohydrates like white bread and white rice. ? Limit how much alcohol and caffeine you drink. ? Increase your fiber intake. Healthy sources of fiber include beans, whole grains, and fresh fruits and vegetables. ? Behavioral changes, such as: ? Pelvic floor muscle exercises. ? Bladder training, such as lengthening the amount of time between bathroom breaks, or using the bathroom at regular intervals. ? Using techniques to suppress bladder urges. This can include distraction techniques or controlledbreathing exercises. ? Medicines, such as: ? Medicines to relax the bladder muscles and prevent bladder spasms. ? Medicines to help slow or prevent the growth of a man's prostate. ? Botox injections. These can help relax the bladder muscles. ? Treatments, such as: ? Using pulses of electricity to help change bladder reflexes (electrical nerve stimulation). ? For women, using a biomedical equipment technician to prevent urine leaks. This is a small, tampon-like, disposable device that is inserted into the urethra. ? Injecting collagen or carbon beads (bulking agents) into the urinary sphincter. These can help thicken tissue and close the bladder opening. ? Surgery. Follow these instructions at home: Lifestyle ? Limit alcohol and caffeine. These can fill your bladder quickly and irritate it. ? Keep yourself clean to help prevent odors and skin damage. Ask your health care provider about special skin creams and cleansers that can protect the skin from urine. ? (more content not included)...[facility] HospitalUrology Office/Clinic Noteon [id number] Office/Clinic NoteChief Complaint 4 month F/U HPI Staff 2m to starting Myrbetriq 50mg qd therapy is doing good but and still taking but it is too expensiveto keep up with this. She wants to talk about doing a Cystoscopy DX: Urge Incontinence, Frequency & OAB Dysuria: _denies Incomplete bladder emptying: denies Hematuria: denies visible blood Frequency: every couple hours Urgency yes sometimes Nocturia: 1x nightly Stream: denies hesitation, normal stream Leaking: _denies Post void dripping: _denies Wearing pads/ Depends: sometimes wears pads if she is going out of the house just wears for security Urge incontinence :denies Stress incontinence: denies Incontinence without Sensory Awareness: _denies Abdominal pain: denies Flank pain: denies Sexual complaints: _denies History of Present Illness Tests reviewed: reviewed UA I have reviewed the previous health record information and history for this patient from Dr. Stoner. I have reviewed and verified the staff HPI to be accurate for this encounter. Review of Systems PHQ Score Initial Depression Screen Score: 0 SCORE ROS - Provider Constitutional: denies weight loss, denies hot flashes. Eyes: denies eye problems. Gastrointestinal: denies nausea, denies vomiting. Cardiovascular: denies chest pain or angina. Integumentary: no dryness Musculoskeletal: denies musculoskeletal symptoms. ENMT: denies otolaryngeal symptoms. Respiratory: no shortness of breath. Heme/Lymph: denies easy bleeding tendency, denies easy bruising tendency. Psychiatric: no confusion, no anxiety. Genitourinary: See HPI. Physical Exam Vitals & Measurements T: 37.0 ?C(Temporal Artery) HR: 78(Peripheral) BP: 122/78 HT: 63 in HT: 159 cm WT: 67.6 kg WT: 148.72 lb BMI: 26.74 General Appearance: alert , no acute distress, well nourished, well developed female. Genitourinary: bladder nonpalpable, no flank pain. Assessment/Plan S/p bladder suspension 2006. 1. Urge incontinence (N39.41: Urge incontinence) PVR 24 - 0 mL. UA today shows trace leuks (small leuks). Started on Myrbetriq 50mg qd at prior OV. States medication worked well for the first few weeks but sxs have begun to worsen recently. Also states she is notsure how long she can stay on this med due to it costing $95/month. Admits she did have another yeast infection and was on abx, feels this may have caused her sxs to worsen. Continues to report occasional UUI, typically when she sits down. Still attributes sx with eating. Wears a pad while riding her motorcycle as she has severe urgency when she gets home. However now gets up only 1x/night (2-3x). Also now feels she empties completely. Discussed medication appears to be working well but can consider switching due to cost. Pt wishes to try an alternative medication. Discussed possible SEs, including dry eyes, dry mouth, and constipation. States she already deals with dry eyes, not very bothersome. -D/c Myrbetriq. Pt to keep leftover pills on hand. -Start Oxybutynin ER 15 mg qd. Recommended GoodRx. Discussed the medication side effects, and the patient will monitor closely for these, as well as for symptom improvement. If severe side effects occur, the medication should be stopped and the office notified. -Will schedule Cysto with possible UD. The procedure risks, benefits, details, and treatment alternatives have been discussed with the patient. These include bleeding, infection, recurrent scar in over 50%, need for repeat dilation or other procedures, no symptom relief with dilation, among others.Full informed consent has been obtained. Will order Local anesthesia. 2. OAB (overactive bladder) (N32.81: Overactive bladder) See #1. Follow-up With When Contact Information HERBIE GARCIA, Petey Duncan, [facility] [address], [place] [address]- [phone] Additional Instructions: sched cysto/poss UD Patient Education Urinary Incontinence Bianka Ochoa, personally scribed for Dr. Stoner on 07/17/2023 12:47:34. . Documentation recorded by the scribBianka boucher, accurately reflects the services(s) I performed and decisions made by me. Authenticated by Dr. Stoner on 07/17/2023 12:49:34. Problem List/Past Medical History Ongoing Chronic obstructive pulmonary disease Cystourethrocele Diverticulitis Hyperlipidemia OAB (overactive bladder) Trigger thumb left Urge incontinence Urinary frequency Historical No qualifying data Procedure/Surgical History Injection of sacroiliac joint using fluoroscopic guidance (09/02/2020), Injection of sacroiliac joint using fluoroscopic guidance (02/18/2019), Injection of sacroiliac joint using fluoroscopic guidance (01/16/2018), Trigger thumb of left hand (10/15/2012), Spinal fusion (08/02/2011), Hysterectomy (0 03/20/2008), Elbow (07/2004), Tubal ligation (02/17/1985), Breast biopsy and related procedures, Colonoscopy, Tonsillectomy. Medications Caltrate (more content not included)...[facility] HospitalComment on above:Result Comment: Electronically Signed By: Petey STONER MD\.br\Date and Time Signed: 07/17/23 12:49 EDT\.br\Electronically Co-Signed By: Bianka Cason\.br\Date and Time Co-Signed: 07/17/23 12:47 EDTFormson [id number] [id number] [facility]ike [facility] Center Ambulatory Visit Summaryon [id number] Visit Summary JEANIE HARDIN :1955 Visit Date:05/03/2023 Ambulatory Visit Instructions Your Diagnosis Urge incontinence Urinary frequency OAB (overactive bladder) Your Care Team Attending Physician - Petey STONER MD Primary Care Physician - IVÁN MARROQUIN MD This Is Your Medications List mirabegron (Myrbetriq 50 mg oral tablet, extended release) Contact prescribing physician if questions or concerns calcium-vitamin D (Caltrate 600 + D) loratadine-pseudoephedrine (Claritin-D) multivitamin with minerals (Multivitamins and Minerals) Procedures Performed Injection of sacroiliac joint using fluoroscopic guidance (09/02/2020), Injection of sacroiliac joint using fluoroscopic guidance (02/18/2019), Injection of sacroiliac joint using fluoroscopic guidance (01/16/2018), Trigger thumb of left hand (10/15/2012), Spinal fusion (08/02/2011), Hysterectomy (0 03/20/2008), Elbow (07/2004), Tubal ligation (02/17/1985), Breast biopsy and related procedures, Colonoscopy, Tonsillectomy. Discharge Vitals Heart Rate (Peripheral) 82 Blood Pressure 118/86 Height 159 cm Height 63 in Weight 67.6 kg Weight 148.72 lb BMI 26.74 What to do next Scheduled Follow-Up Appointments Monday 11:15 AM EDT With: Petey STONER MD Where: [facility] Educationon [id number] EducationObstetrics and Gynecology Overactive Bladder, Adult Overactive bladder is a condition in which a person has a sudden and frequent need to urinate. A person might also leak urine if he or she cannot get to the bathroom fast enough (urinary incontinence). Sometimes, symptoms can interfere with work or social activities. What are the causes? Overactive bladder is associated with poor nerve signals between your bladder and your brain. Your bladder may get the signal to empty before it is full. You may also have very sensitive muscles thatmake your bladder squeeze too soon. This condition may also be caused by other factors, such as: ? Medical conditions: ? Urinary tract infection. ? Infection of nearby tissues. ? Prostate enlargement. ? Bladder stones, inflammation, or tumors. ? Diabetes. ? Muscle or nerve weakness, especially from these conditions: ? A spinal cord injury. ? Stroke. ? Multiple sclerosis. ? Parkinson's disease. ? Other causes: ? Surgery on the uterus or urethra. ? Drinking too much caffeine or alcohol. ? Certain medicines, especially those that eliminate extra fluid in the body (diuretics). ? Constipation. What increases the risk? You may be at greater risk for overactive bladder if you: ? Are an older adult. ? Smoke. ? Are going through menopause. ? Have prostate problems. ? Have a neurological disease, such as stroke, dementia, Parkinson's disease, or multiple sclerosis(MS). ? Eat or drink alcohol, spicy food, caffeine, and other things that irritate the bladder. ? Are overweight or obese. What are the signs or symptoms? Symptoms of this condition include a sudden, strong urge to urinate. Other symptoms include: ? Leaking urine. ? Urinating 8 or more times a day. ? Waking up to urinate 2 or more times overnight. How is this diagnosed? This condition may be diagnosed based on: ? Your symptoms and medical history. ? A physical exam. ? Blood or urine tests to check for possible causes, such as infection. You may also need to see a health care provider who specializes in urinary tract problems. This is called a urologist. How is this treated? Treatment for overactive bladder depends on the cause of your condition and whether it is mild or severe. Treatment may include: ? Bladder training, such as: ? Learning to control the urge to urinate by following a schedule to urinate at regular intervals. ? Doing Kegel exercises to strengthen the pelvic floor muscles that support your bladder. ? Special devices, such as: ? Biofeedback. This uses sensors to help you become aware of your body's signals. ? Electrical stimulation. This uses electrodes placed inside the body (implanted) or outside the body. These electrodes send gentle pulses of electricity to strengthen the nerves or muscles that control the bladder. ? Women may use a plastic device, called a pessary, that fits into the vagina and supports the bladder. ? Medicines, such as: ? Antibiotics to treat bladder infection. ? Antispasmodics to stop the bladder from releasing urine at the wrong time. ? Tricyclic antidepressants to relax bladder muscles. ? Injections of botulinum toxin type A directly into the bladder tissue to relax bladder muscles. ? Surgery, such as: ? A device may be implanted to help manage the nerve signals that control urination. ? An electrode may be implanted to stimulate electrical signals in the bladder. ? A procedure may be done to change the shape of the bladder. This is done only in very severe cases. Follow these instructions at home: Eating and drinking ? Make diet or lifestyle changes recommended by your health care provider. These may include: ? Drinking fluids throughout the day and not only with meals. ? Cutting down on caffeine or alcohol. ? Eating a healthy and balanced diet to prevent constipation. This may include: ? Choosing foods that are high in fiber, such as beans, whole grains, and fresh fruits and vegetables. ? Limiting foods that are high in fat and processed sugars, such as fried and sweet foods. Lifestyle ? Lose weight if needed. ? Do not use any products that contain nicotine or tobacco. These include cigarettes, chewing tobacco, and vaping devices, such as e-cigarettes. If you need help quitting, ask your health care provider. General instructions ? Take bhsx-ubk-datcglu and prescription medicines only as told by your health care provider. ? If you were prescribed an antibiotic medicine, take it as told by your health care provider. Do not stop taking the antibiotic even if you start to feel better. ? Use any implants or pessary as told by your health care provider. ? If needed, wear pads to absorb urine leakage. ? Keep a log to track how much and when you drink, and when you need to urinate. This will help your health care provider monitor yo (more content not included)...NormalVeterans Health AdministrationUrology Office/Clinic Noteon [id number] Office/Clinic NoteChief Complaint New Pt. HPI Staff New pt. Jeanie is a 67 y.o. female here for frequency and incontinence. Bladder suspension in 2007. PVR 0ml. Dysuria: sometimes has pain like an orgasm, but denies burning Incomplete bladder emptying: yes Hematuria: denies visible blood Frequency: if pt is siting she urinates every hour, if she is moving around she urinates every 30 mins Urgency: yes Nocturia: 2-3x a night Stream: denies hesitancy, denies weak stream Leaking: denies Post void dripping: denies Wearing pads/ Depends: yes wears pads just in case Urge incontinence: yes Stress incontinence: denies Incontinence without Sensory Awareness: denies Abdominal pain: sometimes has lower abdomen pressure Flank pain: denies Sexual complaints: denies History of Present Illness Tests reviewed: reviewed UA I have reviewed the previous health record information and history for this patient. I have reviewed and verified the staff HPI to be accurate for this encounter. There have been no associated fever, chills, flank pain, or blood in the urine. Denies any urinary infections since last encounter. Review of Systems PHQ Score Initial Depression Screen Score: 0 SCORE ROS - Provider Constitutional: denies weight loss, denies hot flashes. Eyes: denies eye problems. Gastrointestinal: denies nausea, denies vomiting. Cardiovascular: denies chest pain or angina. Integumentary: no dryness Musculoskeletal: denies musculoskeletal symptoms. ENMT: denies otolaryngeal symptoms. Respiratory: no shortness of breath. Heme/Lymph: denies easy bleeding tendency, denies easy bruising tendency. Psychiatric: no confusion, no anxiety. Genitourinary: See HPI. Physical Exam Vitals & Measurements HR: 82(Peripheral) BP: 118/86 HT: 63 in HT: 159 cm WT: 67.6 kg WT: 148.72 lb BMI: 26.74 General Appearance: alert , no acute distress, well nourished, well developed female. Head: normocephalic . Eyes: normal orbit and globe. ENMT: normal examination of external ears. Chest: Lungs CTA, respirations non labored . Cardiovascular: regular rate and rhythm. Abdomen: soft , non distended, no tenderness, no mass or organomegaly, no hernia. Genitourinary: bladder nonpalpable, no flank tenderness. Lymph Nodes: unremarkable palpation of the cervical area. Skin: warm, dry, no bruising. Psychiatric: cooperative, affect appropriate for age, normal judgement, euthymic mood. Assessment/Plan Jeanie is a 67 yo female new pt here due to frequency and incontinence. S/p bladder suspension 2005. 1. Urge incontinence (N39.41: Urge incontinence) UA shows small leuks. PVR 0 ml. Frequency started a couple years ago and has worsened to the point where she sometimes experiences UUI. Attributed sx with eating. Has recently started to notice suprapubic pressure. Has also recently started defecating with urination even though she does not feel the urge to defecate. Has also developed nocturia within the past couple of mos. Had an infection about a month ago(? vaginal?) and sx improved while on abx course. Follow up 2-3 mos or sooner if needed. Pt understands and agrees with plan. -Start Myrbetriq 50 mg qd. SEs discussed. Rx sent to [facility]. -If sx don't improve, will consider cysto and uros. 2. Urinary frequency (R35.0: Frequency of micturition) See #1. 3. OAB (overactive bladder) (N32.81: Overactive bladder) See #1. Follow-up With When Contact Information HERBIE GARCIA, Petey Duncan, [facility] [address] [place] [address]- Additional Instructions: 2-3 mos Patient Education Overactive Bladder, Adult I, Shaye Sue, personally scribed for Dr. Stoner on 05/03/2023 10:10:55. . Documentation recorded by the scribe, Shaye Sue, accurately reflects the services(s) I performed and decisions made by me. Authenticated by Dr. Stoner on 05/03/2023 10:12:43. Problem List/Past Medical History Ongoing Chronic obstructive pulmonary disease Cystourethrocele Diverticulitis Hyperlipidemia OAB (overactive bladder) Trigger thumb left Urge incontinence Urinary frequency Historical No qualifying data Procedure/Surgical History Injection of sacroiliac joint using fluoroscopic guidance (09/02/2020), Injection of sacroiliac joint using fluoroscopic guidance (02/18/2019), Injection of sacroiliac joint using fluoroscopic guidance (01/16/2018), Trigger thumb of left hand (10/15/2012), Spinal fusion (08/02/2011), Hysterectomy (0 03/20/2008), Elbow (07/2004), Tubal ligation (02/17/1985), Breast biopsy and related procedures, Colonoscopy, Tonsillectomy. Medications Caltrate 600 + D, 1 tab(s), Oral, Daily Claritin-D, 1 tab(s), Oral, Daily Multivitamins and Minerals, Daily Allergies No Known Allergies Social History Alcohol - Denies Alcohol Use, 07/30/2020 Substance Abuse - Low Risk, 07/30/2020 Current, Marijuana, 07/30/2020 Tobacco Former sm (more content not included)...[facility] HospitalComment [facility]:Result Comment: Electronically Signed By: Petey STONER MD\.br\Date and Time Signed: 05/03/23 10:12 EST\.br\Electronically Co-Signed By: Shaye Sue\.br\Date and Time Co-Signed: 05/03/23 10:11 ESTMM TOMOSYNTHESIS SCREENING BIon 94-37-[place]51[place] [address] Mammography Report Signed Patient: Jeanie Hardin MR#: [id number] : 1955 Acct:[id number] Age/Sex: 67 / F ADM Date: 02/21/23 Loc: MAMMO Attending Dr: IVÁN MARROQUIN Ordering Physician: IVÁN MARROQUIN Results: Date of Service: 02/21/23 Follow Up: Procedure(s): MM tomosynthesis screening BI Accession Number(s): [id number] cc: IVÁN MARROQUIN Patient Name: JEANIE HARDIN MR#: [id number] : 1955 Exam Date: 02/21/2023 Ordering Doctor: [...] pancreatic cancer at age 62. LOCATION: [facility] BREAST COMPOSITION: Heterogeneously dense,which may obscure small [...] Signed By: 02/21/23 1508 DD/ 1507 TD/TT: Lead Coater:TBHRadiology, Radiologist, - 02/21/2023 [place] [address] Mammography Report Signed Patient: Jeanie Hardin MR#: [id number] : 1955 Acct:[id number] Age/Sex: 67 / F ADM Date: 02/21/23 Loc: MAMMO Attending Dr: IVÁN MARROQUIN Ordering Physician: IVÁN MARROQUIN Results: Date of Service: 02/21/23 Follow Up: Procedure(s): MM tomosynthesis screening BI Accession Number(s): [id number] cc: IVÁN MARROQUIN Patient Name: JEANIE HARDIN MR#: [id number] : 1955 Exam Date: 02/21/2023 Ordering Doctor: [...] pancreatic cancer at age 62. LOCATION: [facility] BREAST COMPOSITION: Heterogeneously dense,which may obscure small [...] Signed By: 02/21/23 1508 DD/ 1507 TD/TT: Lead Coater: [facility] HospitalRadiology Study observation (narrative)[facility] TOMOSYNTHESIS SCREENING BIOrdered By: Radiologist Radiology on 97-91-5364WNNF [employer] Work Phone: Glucose Glucometer (BldC) [Mass/Vol]Ordered By: Geneva Thomas on 62-53-4091Tgochso [Mass/Vol]90 mg/dLWilson [facility] Hospital Comment on above:Random Glucose Reference Range is dependent on time and content of last meal. Glucose of more than 200 mg/dL in a nonstressed, ambulatory subject supports the diagnosis of Diabetes Mellitus.No Panel InformationOrdered By: Geneva Thomas on 67-88-0548Dikbgvs Glucose CommentGlu2: cleaned meterWilson Street HospitalCovid-19 PCR (CVDTBH)on 49-87-8610GWCQ-CoV-2 (COVID-19) RNA FRANSISCA+probe Ql (Unsp spec)DetectedAbnormalNOT DETECTEDThe [facility] Comment on above:Result Comment: This test is not yet approved or cleared by the [place] FDA. When there are no FDA-approved or cleared tests available, and other criteria are met, FDA can make tests available under an emergency access mechanism called an Emergency Use Authorization (EUA). The EUA for this test is supported by the [place] of Health and Human Service's declaration that circumstances exist to justify the emergency use of in vitro diagnostics for the detection and/or diagnosis of the virusthat causes COVID-19. This EUA will remain in effect for the duration of the COVID-19 declaration justifying emergency of IVDs, unless it is terminated or revoked by the FDA (after which the test mayno longer be used).Performed By: #### CVDTBH #### [facility] [address] [place] [address] Dr. Bob NatarajanINFLCHADNZA A AND B AGon 92-43-8981YHAOPCBDMCTXBWadsworth-Rittman HospitalComment on above:Result Comment: Negative for Flu A protein angiten. Infection due to Flu A cannot be ruled out. FluA angiten in the sample may be below the detection limit of the test.Performed By: #### INFLUAB #### [facility] [address] [place] [address] Dr. Bob NatarajanINFLUBNEGHSUniversity Hospitals Elyria Medical Center on above: Result Comment: Negative for Flu B protein antigen. Infection due to Flu B cannot be ruled out. FluB antigen in the sample may be below the detection limit of the test.Performed By: #### INFLUAB #### [facility] [address], [place] [address] Dr. Bob Sierra AGNegativeNormalNEGATIVE SEE COMMENTThe [facility]illicothe HospitalComment on above:Performed By: #### INFLUAB #### [facility] [address] [place] [address] [address] Bob Gonzalez AGNegativeNormalNEGATIVE SEE COMMENTThe [facility]illicothe HospitalComment on above:Performed By: #### INFLUAB #### [facility] [address] [address] [address] Bob NatarajanMG MAMM SCREEN 3D CRICKET CADon 51-84-9439IE MAMM SCREEN 3D CRICKET CAD Patient: JEANIE HARDIN Exam Date: 01/28/2022 : 1955 Gender:F Ordering : DR IVÁN MARROQUIN M.D. Admission #: [id number] Family : Order #: [id number] CLICK HERE TO VIEW EXAM RADIOLOGY REPORT PROCEDURE: MAMMOGRAM SCREENING 3D BILATERAL CAD COMPARISON: MG MAMM SCREEN 3D CRICKET CAD, 12/23/2020. MG MAMM SCREEN CRICKET W CAD, 05/22/2018. INDICATIONS: Screening mammography Calculator Name NCI Breast Cancer Risk Assessment Tool 5 Year Breast Cancer Risk 1.70% Lifetime Breast Cancer Risk 6.90% Personal Breast Cancer No Personal Ovarian Cancer No Treatments None Family Cancers Brother with bladder/prostate cancer at age 51; Aunt-paternal with breast cancer at age 50; Aunt-maternal with pancreatic cancer at age 60. LOCATION: [facility] BREAST COMPOSITION: Heterogeneously dense,which may obscure small masses. FINDINGS: DIAGNOSTIC CATEGORY 1--NEGATIVE. NO CHANGE FROM COMPARISON ASSESSMENT. Scattered benign-appearing calcifications are present. Scattered benign-appearing lymph nodes are present. RIGHT BREAST: No significant suspicious finding. LEFT BREAST: No significant suspicious finding. RECOMMENDATIONS: ROUTINE MAMMOGRAM AND CLINICAL EVALUATION IN 12 MONTHS. PLEASE NOTE: A NORMAL MAMMOGRAM DOES NOT EXCLUDE THE POSSIBILITY OF BREAST CANCER. A CLINICALLY SUSPICIOUS PALPABLE LUMP SHOULD BE BIOPSIED. Dictated by: Judy Birmingham MD on 01/28/2022 at 11:14 Approved by: Judy Birmingham MD on 01/28/2022 at 11:16[facility] Cervical or vaginal smear or scraping studyon 33-21-5390LUJKSaint [facility] Vital Signs Date TimeVital SignValuePerforming KmttpdfreWkmfgdje28-00-4019 15:59-0400Body .02 Hope Marroquin MD Work Phone: [phone]10-23-2025 15:59-0400 Body mass index (BMI) [Ratio]27.4 kg/m4QtnhhIván Marroquin MD Work Phone: [phone]10-23-2025 15:59-0400 Body ibmebpshbnn44.8 [degF]Iván Marroquin MD Work Phone: [phone] [place], [place] 3653010-23-2025 15:59-0400 Body otrovn83.3 kgIván Marroquin MD Work Phone: [phone] [place], [place] [address]3010-23-2025 15:59-0400 Diastolic blood twztoeig05 mm[Hg]Iván Marroquin MD Work Phone: [phone]10-23-2025 15:59-0400 Heart rate96 /minIván Marroquin MD Work Phone: [phone] [place], [place] 3653010-23-2025 15:59-0400 Respiratory rate14 /minIván Marroquin MD Work Phone: [phone] [place], [place] 3653010-23-2025 15:59-0400 SaO2% (BldA) [Mass fraction]98 %Iván Marroquin MD Work Phone: [phone]10-23-2025 15:59-0400 Systolic blood chprpyto866 mm[Hg]Iván Marroquin MD Work Phone: [phone] [place], [place] [address]9-02-2025 11:30-0400 Body mass index (BMI) [Ratio]24.33 kg/q4Whuzo Kaylin DO Work Phone: [facility] CenterMqxhymopem18-56-5426 11:30-0400Body lurrur55.33 kgCorey Kaylin DO Work Phone: [facility] CenterDhpincuptc74-51-8905 11:30-0400Diastolic blood vluvhwyo78 mm[Hg]Christ Paytono DO Work Phone: [facility] CenterMkaivpzyia38-80-4032 11:30-0400Systolic blood mm[Hg]Christ Guptazio DO Work Phone: [facility] CenterWkbgpmiqmc66-93-2893 09:49-0400Body mass index (BMI) [Ratio]24.84 kg/w2Ipplb Kaylin DO Work Phone: [place] [address]Znireoyddt80-82-2603 09:49-0400Body tkzjoj36.6 kg Christdeawyne Paytono MaPS Work Phone: [place] [phone] 09:49-0400Diastolic blood kqabpfmf99 mm[Hg]Christdewayne Paytono MaPS Work Phone: [facility] CenterZmhhizbcte36-55-5802 09:49-0400Systolic blood bojndihw660 mm[Hg]Christdewayne Paytono DO Work Phone: [facility] CenterAuzwjkpyze29-87-7101 13:54-0400Body mbtpue900.5 Hope Marroquin MD Work Phone: [facility] CenterScubwaimey58-30-8571 13:54-0400Body mass index (BMI) [Ratio]24.33 kg/g7QldiiIván Marroquin MD Work Phone: [facility] CenterTohkuxrtrs46-27-1986 13:54-0400Body .33 kgIván Marroquin MD Work Phone: [place] [address]Zuvmohrzct84-62-9889 13:54-0400Diastolic blood biqbwcxf11 mm[Hg]Iván Marroquin MD Work Phone: [place] [address]Kpzohurwsg05-30-0650 13:54-0400Heart zngs168 /min Iván Marroquin MD Work Phone: [place] [address]Eupcfgnfoi60-92-6995 13:54-1759BjH3% (BldA) [Mass fraction]98 %Iván Marroquin MD Work Phone: [facility] CenterOkpnkggvjl74-96-9881 13:54-0400Systolic blood nmlyufzr041 mm[Hg]Iván Marroquin MD Work Phone: [facility] CenterVqbqltnzyu73-65-4749 12:56-0400Body lafrhh325 cm Yumi Paula MD Work Phone: [facility]07-30-2025 12:56-0400Body mass index (BMI) [Ratio]23.91 kg/o0MzgmxkogYumi Paula MD Work Phone: [facility]07-30-2025 12:56-0400Body temperature 97.59 [degF]Yumi Paula MD Work Phone: [phone]07-30-2025 12:56-0400Body .24 kgYumi Paula MD Work Phone: [facility]07-30-2025 12:56-0400Diastolic blood segnrwlp66 mm[Hg]Yumi Paula MD Work Phone: [facility]07-30-2025 12:56-0400Heart rate80 /min Yumi Paula MD Work Phone: [phone]07-30-2025 12:56-2320PeS4% (BldA) [Mass fraction]98 %Yumi Paula MD Work Phone: [facility]07-30-2025 12:56-0400Systolic blood gydkdslw961 mm[Hg]Yumi Paula MD Work Phone: [facility]07-16-2025 08:54-0400Body .5 Laura Frank PHOTOGRAPHIC EQUIPMENT INSPECTOR Work Phone: [facility] LawnHdwhwffwsj22-56-9239 08:54-0400Body mass index (BMI) [Ratio]24.51 kg/j3SpptliNamrata Frank PHOTOGRAPHIC EQUIPMENT INSPECTOR Work Phone: [facility] LawnHrtzbbylfk71-10-9155 08:54-0400Body iphtkk03.78 kgNamrata Frank PHOTOGRAPHIC EQUIPMENT INSPECTOR Work Phone: [facility] LawnZnibotdwwv31-41-6574 08:54-0400Diastolic blood klpivnjz09 mm[Hg]Namrata Frank PHOTOGRAPHIC EQUIPMENT INSPECTOR Work Phone: [facility] LawnHnpmlamanh89-37-3973 08:54-0400Heart rate56 /min Namrata Dumontvely PHOTOGRAPHIC EQUIPMENT INSPECTOR Work Phone: [facility] LawnRybdtjrvrv33-28-3394 08:54-0400Respiratory rate17 /minScyndy Dumontvely PHOTOGRAPHIC EQUIPMENT INSPECTOR Work Phone: [facility] LawnDglkmcfdgm93-87-3523 08:54-7882BnO3% (BldA) [Mass fraction]98 %Namrata Frank PHOTOGRAPHIC EQUIPMENT INSPECTOR Work Phone: [facility] LawnHyhlaitofd04-24-3368 08:54-0400Systolic blood ehvhwdbm413 mm[Hg]Namrata Frank PHOTOGRAPHIC EQUIPMENT INSPECTOR Work Phone: [facility] LawnHryazrvsbb69-73-3922 09:27-0400Body hyrpda621.5 cmScyndy Dumontvely PHOTOGRAPHIC EQUIPMENT INSPECTOR Work Phone: [facility] LawnDhgcfjorxv11-08-9852 09:27-0400Body mass index (BMI) [Ratio]24.62 kg/l9Tzwmoi Cayce PHOTOGRAPHIC EQUIPMENT INSPECTOR Work Phone: [phone] Walnut LawnKkoyyhpngf94-87-6517 09:27-0400Body szeryw53.05 kgShbessie Jamey PHOTOGRAPHIC EQUIPMENT INSPECTOR Work Phone: [facility] LawnBcjxumnlwf87-61-8109 09:27-0400Diastolic blood bfmcknue93 mm[Hg]Namrata Frank PHOTOGRAPHIC EQUIPMENT INSPECTOR Work Phone: [facility] LawnUxrplkxkao44-33-4884 09:27-0400Heart rate88 /min Namrata Frank PHOTOGRAPHIC EQUIPMENT INSPECTOR Work Phone: [facility] LawnCdczrwqaeg03-43-9411 09:27-0400Respiratory rate16 /minScyndy Frank PHOTOGRAPHIC EQUIPMENT INSPECTOR Work Phone: [facility] LawnSsnizipgrt49-11-0898 09:27-6237IeU6% (BldA) [Mass fraction]97 %Namrata Frank PHOTOGRAPHIC EQUIPMENT INSPECTOR Work Phone: [facility] LawnDfrkvjglpl72-68-5467 09:27-0400Systolic blood wljwsloh630 mm[Hg]Namrata Frank NP Work Phone: [facility] CenterYsrrumrxpy57-17-5496 09:57-0500Blood Pressure LocationPetey STONER [facility] [place] [facility]02-07-2025 09:57-0500Body qqaaiirrssi59.6 [degF]Petey STONER [facility]02-07-2025 09:57-0500Diastolic blood ecfcieee37 mm[Hg]Petey STONER [facility]02-07-2025 09:57-0500Heart rate75 /minPatricluis STONER [facility]02-07-2025 09:57-0500Respiratory rate16 /minPatricluis STONER [facility]02-07-2025 09:57-0500Systolic blood woutylgf567 mm[Hg]Petey STONER [facility]01-20-2025 10:24-0500Body .5 Hope Marroquin MD Work Phone: [facility] LawnIlysioobxg89-91-1281 10:24-0500Body mass index (BMI) [Ratio]25.24 kg/y8KrhvuIván Marroquin MD Work Phone: [facility] LawnTnelfqxilo21-90-4455 10:24-0500Body qclyxp87.6 kg Iván Marroquin MD Work Phone: [facility] LawnIdycdowhaw90-36-0697 10:24-0500Diastolic blood eqlpoygj71 mm[Hg]Iván Marroquin MD Work Phone: [facility] LawnIulbodxazb70-70-8140 10:24-0500Heart rate95 /min Iván Marroquin MD Work Phone: [phone] [place], [place] [address]Hnasmarxqd30-29-4049 10:24-8474CpF3% (BldA) [Mass fraction]95 %Iván Marroquin MD Work Phone: 1(160)[facility]-[address] [place], [place] [address]Geonnlwohu13-49-0431 10:24-0500Systolic blood hekdpmby670 mm[Hg]Iván Marroquin MD Work Phone: [phone])[facility] [place], [place] [address]Jdfkbqlwkf83-72-0044 09:59-0500Body mgsqyf246.5 cmKaren Hemmer PA Work Phone: [phone])[facility]-[address] [place], [place] [address]Ksknwnppht61-95-2431 09:59-0500Body mass index (BMI) [Ratio]24.36 kg/l6Redrz Hemmer PA Work Phone: 1(026)[facility] [place], [place] [address]Cqigtuapjy24-50-8502 09:59-0500Body gmqtoz57.42 kgKaren Hemmer PA Work Phone: 1(696)[facility] [place], [place] [address]Sgrrxfoloy93-98-7724 09:59-0500Diastolic blood kqrfnuls05 mm[Hg]Jamilah Hemmer PA Work Phone: 1(779)[facility]-[address] [place], [place] [address]Rxoaleyhud82-29-4238 09:59-0500Heart rate85 /min Jamilah Hemmer PA Work Phone: [phone])[facility] [place], [place] [address]Zsaebklhxk32-77-5235 09:59-0500Respiratory rate16 /minKaren Hemmer PA Work Phone: 1(404)[facility] [place], [place] [address]Lphyfqfssg22-58-9114 09:59-6946XfR7% (BldA) [Mass fraction]96 %Jamilah Hemmer PA Work Phone: 1(013)[facility] [place], [place] [address]Ipqqhzmxhc16-43-0057 09:59-0500Systolic blood pgivqafc752 mm[Hg]Jamilah Hemmer PA Work Phone: [phone])[facility] [place], [place] [address]Cmoncbouys39-95-2079 09:30-0400Blood Pressure Tyrone STONER [facility]10-07-2024 09:30-0400Diastolic blood tlavvjpt60 mm[Hg]Petey STONER [facility]10-07-2024 09:30-0400Heart rate92 /minPetey STONER [facility]10-07-2024 09:30-0400Systolic blood mm[Hg]Petey STONER [facility]04-29-2024 11:26-0400Blood Pressure LocationPatrick STONER [facility]04-29-2024 11:26-0400Body bvpnpwfjccu82.6 [degF]Petey STONER [facility]04-29-2024 11:26-0400Diastolic blood qgdnddam88 mm[Hg]Petey STONER [facility]04-29-2024 11:26-0400Heart rate78 /minPaarnav STONER [facility]04-29-2024 11:26-0400Systolic blood dwtszemr263 mm[Hg]Petey STONER [facility]02-14-2024 08:55-0500Blood Pressure LocationPatricluis STONER [facility]02-14-2024 08:55-0500Diastolic blood ivtdlfyo70 mm[Hg]Petey STONER [facility]02-14-2024 08:55-0500Heart rate82 /minPatrick STONER [facility]02-14-2024 08:55-0500Systolic blood pzbfyqen106 mm[Hg]Petey STONER [facility] [place] [address]1241-29-2023 09:41-0500Diastolic blood mm[Hg]MD Iván Marroquin Work Phone: [facility]11-29-2023 09:41-0500 Heart rate97 /minMD Iván Marroquin Work Phone: [phone] [place], [place] [address]11-29-2023 09:41-0500 Respiratory rate18 /minMD Freddymeghan [place] Work Phone: [phone] [place], [place] [address]11-29-2023 09:41-0500 SaO2% (BldA) [Mass fraction]98 %MD Iván Marroquin Work Phone: 1([phone])825-[address] [place], [place] [address]74[address]11-29-2023 09:41-0500 Systolic blood svjjqpte379 mm[Hg]MD Iván Marroquin Work Phone: [phone] [place], [place] [address]74[address]11-29-2023 07:17-0500 Body hwfesb887.02 cmMD Iván Rizoa Work Phone: 1([phone] [place], [place] [address]74[address]11-29-2023 07:17-0500 Body likxvv59.59 kgMD Iván Marroquin Work Phone: [phone] [place], [place] 07[address]506-14-2023 09:15-0400 Body eetefi059.02 Amadeo Montero Other [employer] [facility] Other 06-14-2023 09:15-0400Body mass index (BMI) [Ratio] 23.81 kg/b3HygqplIlana Montero Other [employer] Other 06-14-2023 09:15-0400Body rdtqvmmitkh22 [degF]Ilana Montero Other [employer] Other 06-14-2023 09:15-0400Body yizxel27.96 kgIlana Montero Other [employer] Other 06-14-2023 09:15-0400Respiratory rate18 /minIlana Montero Other nort [facility] Other 06-14-2023 09:15-2505GkC3% (BldA) [Mass fraction]99 % Ilana Montero Other [employer] [facility] Other Encounters Encounter DateEncounter TypeCare ProviderFacilityStart: 33-28-3849wgiuiksviw Petey Duncan WATERSFacility:EU BellevueStart: 01-09-2025 End: 63-98-8857Igjigicx ReferredCoco Worthington APRN-Lab [facility] Work Phone: Start: 01-09-2025 End: 86-08-9338ekhdkbwptwIgugr M Alda MD Work Phone: -[facility] ClydeStart: 01-09-2025 End: 46-13-6424Uzraikq encounter procedureCoco Worthington NEWSP[employer]ER PEDDLER-[facility] Work Phone: Start: 11-19-2024 End: 44-81-3854Mexyqq flowsheetCorey Kaylin DO Work Phone: [facility] OBGYNStart: 11-19-2024 End: 76-53-8167Gftbpo flowsheetCorey Kaylin DO Work Phone: [facility] OBGYNStart: 11-19-2024 End: 74-37-3409Pkckyq outpatient visit 15 minutesCorey Kaylin DO Work Phone: [facility]yla OBGYNComment on above:Encounter to discuss test results; Cyst of right ovaryStart: 11-19-2024 End: 21-40-5666snloaymqjoLERMA FAZIONot AvailableStart: 11-06-2024 End: 68-65-5302Crrlblkqr Result EncounterGeneric External Data ProviderNOMS External Department UnsolicitedStart: 11-06-2024 End: 16-78-0741Vdapzudkz Result EncounterGeneric External Data ProviderNOMS External Department UnsolicitedStart: 11-04-2024 End: 00-66-2774pdokevomdjWXNCA FAZIONot AvailableStart: 11-04-2024 End: 16-35-3775Xupzoi outpatient visit 15 minutesCorey Kaylin DO Work Phone: [facility] OBGYNComment on above:Bilateral ovarian cysts; Vaginal itching; Yeast infection; Vaginal atrophyStart: 10-22-2024 End: 66-71-5645Eevnss outpatient visit 25 minutesIván Marroquin MD Work Phone: [facility] Family MedinceComment on above: Diverticulitis (Primary Dx); OAB (overactive bladder)Start: 10-22-2024 End: 15-60-7227ikdoeuplfzVPHJK M ALDANot AvailableStart: 10-16-2024 End: 64-97-7141Plfsxcm encounter procedureYumi Paula MD Work Phone: Colorectal SurgeryComment on above:Diverticulitis Start: 10-16-2024 End: 90-76-2274uemsqsbwofWQECPLMG MITCHEMFacility:[facility] [place] [facility] Start: 10-04-2024 End: 64-27-1982Ygwxbnbcvu Brendan Frank ORDERLIES TEACHER Work Phone: Referring PhysicianComment on above:Diverticulitis (Primary Dx)Start: 10-02-2024 End: 52-34-2285Uvhfau Shayna Frank PHOTOGRAPHIC EQUIPMENT INSPECTOR Work Phone: [facility] CI FMStart: 10-02-2024 End: 00-97-8852Wmgzmcvijay Frank PHOTOGRAPHIC EQUIPMENT INSPECTOR Work Phone: [facility] CI FMStart: 10-02-2024 End: 54-95-9254Lnrdgl outpatient visit 25 minutesNamrata Frank PHOTOGRAPHIC EQUIPMENT INSPECTOR Work Phone: [facility] CI FMComment on above:Diverticulitis (Primary Dx); Bilateral ovarian cystsStart: 10-02-2024 End: 12-12-5051btukaqsfanZFFNZS M SHIVELYNot AvailableStart: 08-13-2024 End: 88-76-6742AasseqJvcfesc ClaSOLO FB ORTHOPAEDICSComment on above:Seasonal allergic rhinitis due to pollenStart: 07-02-2024 End: 12-31-8697Ykbmtv Shayna Frank PHOTOGRAPHIC EQUIPMENT INSPECTOR Work Phone: [facility] CI FMStart: 07-02-2024 End: 31-92-8317Fanhie Shayna Frank PHOTOGRAPHIC EQUIPMENT INSPECTOR Work Phone: [facility] CI FMStart: 07-02-2024 End: 65-66-2486Inlgjl outpatient visit 25 minutesShbessie Frank PHOTOGRAPHIC EQUIPMENT INSPECTOR Work Phone: [facility] CI FMComment on above:Urinary tract infection with hematuria, site unspecified (Primary Dx)Start: 07-02-2024 End: 83-62-3136utshsihfgjHMIWVO M SHIVELYNot AvailableStart: 05-30-2024 End: 51-64-8255Ehdjqh Sunny Mantilla PHOTOGRAPHIC EQUIPMENT INSPECTOR Work Phone: NOMS CI FMStart: 05-30-2024 End: 22-02-0508Zlrxeh Sunny Mantilla PHOTOGRAPHIC EQUIPMENT INSPECTOR Work Phone: NOMS CI FMStart: 05-30-2024 End: 70-52-5051qchodihaorKFK C MILLERNot AvailableStart: 04-26-2024 End: 82-44-9571xdcrpgzlvoVbvvzdi R WATERSFacility:EU BellevueStart: 04-26-2024 End: 44-25-6981Ljcutrb encounter procedurePetey STONER [facility] start: 04-08-2024 End: 77-10-1750Jzhypn outpatient visit 25 minutesIván Marroquin MD Work Phone: NOMS CI FMComment on above:Diverticulosis of colon (Primary Dx); Chronic obstructive pulmonary disease, unspecified ([facility]/HCC); Diverticulitis; Generalized abdominal pain; Tubular adenoma of colonStart: 04-08-2024 End: 81-92-0759wavjtsnzcvLFPZM M ALDANot AvailableStart: 02-26-2024 End: 24-52-3003Bfkpxrqfi Result EncounterIván Marroquin MD Work Phone: NOMS External Department UnsolicitedStart: 02-26-2024 End: 97-12-1050Wvytxlgiq Result EncounterIván Marroquin MD Work Phone: NOMS External Department UnsolicitedStart: 02-14-2024 End: 12-68-8383Dsaxrynha encounterJamilah NAVARRO Work Phone: [facility] CI FMStart: 02-07-2024 End: 50-72-2148Qbmaep flowsMartin NAVARRO Work Phone: [facility] CI FMStart: 02-07-2024 End: 60-15-0823Wdaali flowsMartin NAVARRO Work Phone: [facility] CI FMStart: 02-07-2024 End: 77-90-9574Bxaapbb encounter Velma NAVARRO Work Phone: NOMS CI FMComment on above:Medicare annual wellness visit, subsequent (Primary Dx); ACP (advance care planning); Encounter for screening mammogram for malignant neoplasm of breast; Other headache syndrome; Chronic obstructive pulmonary disease, unspecified COPD type ([facility]/HCC); OAB (overactive bladder); Prolapse of urethra; Stricture of female urethra, unspecified stricture type; Urge incontinence; Vaginal atrophy; Sacroiliitis, not elsewhere classified ([facility]/HCC); Snapping thumb syndrome, unspecified laterality; Chronic sinusitis, unspecified location; Diverticulosis; Seasonal allergic rhinitis due to pollen; Bruxism (CMS/[facility]); Difficulty walking; Fibrocystic breast changes, unspecified laterality; History of hysterectomy; Pure hypercholesterolemia (CMS/[facility]); Urinary frequency; Former smoker; Early dry stage nonexudative age-related macular degeneration of both eyes; Other problems related to lifestyleStart: 02-07-2024 End: 27-27-3683bdsmbppojrGRQDE M HEMMERNot AvailableStart: 12-25-2023 End: 87-88-6881yteojzkrpwXopwzzw R WATERSFacility:EU BellevueStart: 12-25-2023 End: 29-67-2487Jzhszdx encounter procedurePaarnav STONER [facility] start: 08-22-2023 End: 72-02-0946wtdipjrbzfHasmtoy R WATERSFacility:FTMCStart: 08-22-2023 End: 12-98-8802Gwkgwet encounter procedurePatricluis STONER [facility] Start: 97-72-4872hlizhlexqsSwlexbg WATERSFacility:EU BellevueStart: 07-17-2023 End: 24-61-3823kmntmpatefLqvavnd R WATERSFacility:EU BellevueStart: 07-17-2023 End: 07-74-4263Suyesys encounter procedurePatricluis STONER [facility] start: 05-03-2023 End: 64-39-3446psctuykyjcWwhsrpa R WATERSFacility:EU [place]uskyStart: 05-03-2023 End: 78-99-0493Xhjoqnz encounter procedurePatrick Dakota STONER [facility] Start: 04-13-2023 End: 10-47-4187kdjwcwmaurQNEOI M [facility] PPGStart: 02-21-2023 End: 34-42-5872Bitmwgagd Result Shawnee Marroquin MD Work Phone: noms External Department UnsolicitedStart: 02-21-2023 End: 46-02-3488Xrlnymzoy Result EncounterIván Marroquin MD Work Phone: noms External Department UnsolicitedStart: 02-15-2023 End: 64-78-0790Thtxkofrt to same day surgery center Iván Marroquin Work Phone: [facility] Work Phone: Start: 02-15-2023 End: 92-42-2536dciokhuporRU Iván Marroquin Work Phone: [facility] Work Phone: Start: 02-06-2023 End: 66-11-3723wkxlabwqyqYjpq Asaad Other [employer] Other Start: 67-95-4774Rhxvlhaag encounterImad AsaadFPG Referral CoordinatorStart: 12-30-2022 End: 08-45-8032jepsimbcnkFazp Asaad Other [employer] Other Start: 78-53-1588Hhgcaacno encounterImad AsaadFPG Referral CoordinatorStart: 08-31-2022 End: 58-28-3099cmvirjklueErfpnx Dymond Other [employer] Other Start: 58-65-8091Dixwlb outpatient new 20 minutes Ilana MonteroFPG Urgent Care ClydeStart: 03-18-2022 End: 60-32-3513abxiboizivWA RUGEN ALDAFacility:Y7Uhsew: 01-28-2022 End: 17-16-6153cxrblgiunmLF RUGEN ALDAFacility:H1 Procedures DateProcedureProcedure DetailPerforming ClinicianStart: 34-85-1565MZ PELVIS W/ TRANSVAGINALGeneric External Data ProviderStart: 44-97-6308Cvksf dip stick/tablet rgnt non-auto w/o micrscpSherri Elin Frank PHOTOGRAPHIC EQUIPMENT INSPECTOR Work Phone: Start: 17-97-9494BK TOMOSYNTHESIS SCREENING Essence Marroquin MD Work Phone: Start: 48-77-2820LgqfijwdqgyZzvmn Alda MD Work Phone: Start: 48-67-8513JU TOMOSYNTHESIS SCREENING Essence Marroquin MD Work Phone: Start: 16-72-6539AenykcurgncOpiay Hemmer PA Work Phone: Start: 55-52-9583Jroblgdpv colonoscopyMD Iván Marroquin Work Phone: Start: 77-37-8392YizmrecvkocHzleflw ClausStart: 11-23-2022H/O: hysterectomyHistory of hysterectomyJamilah NAVARRO Work Phone: Start: 29-36-2506Kvxm cerv/vag auto thin layer prep mnl screenCorey Kaylin DO Work Phone: Start: 96-46-8393Hvjlixnta of sacroiliac joint using fluoroscopic guidanceBlueroof 360 Comment on above:85% reliefStart: 39-91-2375Ljidilwte of sacroiliac joint using fluoroscopic guidancePaTriviaPadk Pull Start: 55-94-6407Fdfjxsjof of sacroiliac joint using fluoroscopic guidancePatrick Pull Start: 66-83-6689UgxdyodtkroCwygp Hemmer PA Work Phone: Start: 62-39-8945Nhysivh thumb of left handPatrick Pull Start: 85-20-0509Mxpwyd arthrodesisPatrick Pull Start: 97-66-1140AiabviyqbfkaQrikcyp Pull Start: 24-56-6252Yblka region structure (body structure)Petey STONER Comment on above:tendons removed bilat elbowsStart: 63-50-6532Qrbwadod of fallopian tubePatrick HERBIE Breast biopsy and related proceduresPatrick HERBIE ColonoscopyPetey STONER H/O: hysterectomyHistory of hysterectomyJamilah NAVARRO Work Phone: TonsillectomyPetey STONER Plan of Treatment DateCare ActivityDetailAuthorStart: 92-79-4267Pecphfuyd for malignant neoplasm of colonNOMS HealthcareStart: 95-27-2797MKP Vaccine (1 - 1-dose 75+ series)RSV Vaccine (1 - 1-dose 75+ series)[facility]: 31-31-3492Fvxwzdksm for malignant neoplasm of colonNOMS HealthcareStart: 03-31-2025 End: 08-67-0657Bikbnqq encounter tygeigpkf59/12/2026 9:20 AM EST Procedure Visit NOMS Keyla KIMBLE [address] [place] [address] Christ Ewing DO [address] [place] [address] NOMS Keyla OBGYNStart: 03-24-2025 End: 33-74-1813Ywsqvtwpyttg / ancillary services akmebkdvxx03/05/2026 1:00 PM EST Ancillary Procedure [facility] Keyla KIMBLE [address] [place] [address] NOMS Keyla OBGYNStart: 62-57-8416Dvdpovznp for malignant neoplasm of breastMammogramNOMS HealthcareStart: 02-11-2025 End: 98-29-0577Wwugscq encounter hlnuuqcnh32/25/2025 9:00 AM EST Office Visit [facility] [address] [place] [address] Namrata Frank, PHOTOGRAPHIC EQUIPMENT INSPECTOR [address] [facility] [address] [place] [address] NOMSamir Herrera [facility] HospitalnceStart: 02-06-2025 Medicare Annual Wellness (AWV)Medicare Annual Wellness (AWV)[facility] Healthcare Start: 49-03-4030Icaad cultureEast Ohio Regional Hospitaltart: 01-09-2025 Bacteria identified in Urine by CultureUrine CultureEast Ohio Regional Hospitaltart: 11-19-2024 End: 58-56-1925EE PelvisUS Pelvis w/ TV Imaging Routine Cyst of right ovary Expected: 11/19/2024, Expires: 05/19/2025NONH Healthcare Work Phone: comment on above:Expected: 11/19/2024, Expires: 05/19/2025Start: 11-19-2024 End: 70-82-1162Iiocqub encounter procedureNOMS Keyla OBGYNComment on above: ArrivedStart: 90-36-5657Uhcndxagi vaccinationNONH HealthcareStart: 11-04-2024 End: 76-17-4027KE PelvisUS Pelvis w/ TV Imaging Routine Bilateral ovarian cysts Expected: 11/04/2024, Expires: 05/07/2025[facility]H Healthcare Work Phone: comment on above:Expected: 11/04/2024, Expires: 05/07/2025Start: 11-04-2024 End: 64-79-4100Oylwnjk encounter llblabcmn93/18/2025 9:40 AM EDT Consult NOMSamir [place] [facility] [address] [facility] [address] Christ Ewing DO [address] [place], [place] [id number] NOMSamir [place] OBGYNStart: 10-22-2024 End: 08-55-2117Fxsttyrjvw [Mass/volume] in Serum or PlasmaCreatinine, Serum Lab Routine Diverticulitis Expected: 10/22/2024 (Approximate), Expires: 10/22/2025 NOMS HealthcareComment on above:Expected: 10/22/2024 (Approximate), Expires: 10/22/2025Start: 10-22-2024 End: 20-07-0196DI Abdomen and Pelvis WO and W contrast IVCT abdomen pelvis w and wo IV contrast Imaging Routine Diverticulitis Expected: 10/22/2024, Expires: 10/22/2025[facility] Healthcare Work Phone: Comment on above:Expected: 10/22/2024, Expires: 10/22/2025Start: 10-16-2024 End: 39-02-7375Vwnhppv encounter cwbcfxzme78/30/2025 1:00 PM EDT Office Visit Colorectal Surgery [address] [address] Yumi Paula MD [address] [id number] Diverticulitis, patient getting records faxed and images sent to [facility] F[employer] TechnologiesIsraColorectal SurgeryComment on above:Diverticulitis, patient getting records faxed and images sent to [facility] [employer].Start: 10-02-2024 End: 31-32-3267WW Abdomen and Pelvis WO contrastCT abdomen pelvis wo IV contrast Imaging Routine Diverticulitis Bilateral ovarian cysts Expected: 10/02/2024, Expires: 10/02/2025NONH [employer] Work Phone: Comment on above:Expected: 10/02/2024, Expires: 10/02/2025Start: 10-02-2024 End: 79-02-3646Jjsyefr encounter /16/2025 9:00 AM EDT Office Visit [facility] CI [facility] [address] [facility] [address] [place] [phone] Namrata Frank NP [address] [facility] [address] [place] [address] ArrivedNOMS CI FMComment on above:ArrivedStart: 90-27-3613Lamzgfuyk vaccinationInfluenza Vaccine (#1)NOMS HealthcareComment on above:Postponed from 11/19/2023 (Patient Refused)Start: 07-02-2024 End: 53-85-6761JJJDXHR TRACT INFECTION (HTRX)URINARY TRACT INFECTION (HTRX) Lab Routine Urinary tract infection with hematuria, site unspecifiedExpected: 07/02/2024 (Approximate), Expires: 07/02/2025[facility] Work Phone: Comment on above:Expected: 07/02/2024 (Approximate), Expires: 07/02/2025Start: 07-02-2024 End: 05-33-9797Frhjhpj encounter opqxabkds79/15/2025 9:30 AM EDT Office Visit [facility] [address] [place] [address] Namrata Frank NP [address] [place] [address] ArrivedNOMS CI FMComment on above:ArrivedStart: 05-30-2024 End: 70-67-1521Fmusalm encounter btuayrfqu50/13/2025 9:30 AM EDT Office Visit [facility] [address] [place] [address] Shirley Mantilla PHOTOGRAPHIC EQUIPMENT INSPECTOR [address] [place] [address] ArrivedNOMS CI FMComment on above:ArrivedStart: 04-08-2024 End: 08-03-9406SQ Abdomen Single viewXR ABDOMEN 2 VIEW Imaging Routine Diverticulosis of colon Diverticulitis Generalized abdominal painExpected: 04/08/2024, Expires: 04/08/2025[facility] Work Phone: Comment on above:Expected: 04/08/2024, Expires: 04/08/2025Start: 98-25-3315Hjpeyoa Directive DiscussionAdvance Directive DiscussionVan Wert County Hospitaltart: 01-01-2025Medicare Advantage Annual Wellness VisitMediForest [facility] Annual Wellness VisitVan Wert County Hospitaltart: 02-23-2024 End: 38-96-5267RRT Breast - bilateral screeningBilateral screening mammogram with tomosynthesis Imaging Routine Encounter for screening mammogram for malignant neoplasm of breast Expected: 02/23/2024, Expires: 04/08/2025[facility] Healthcare Work Phone: Comment on above:Expected: 02/23/2024, Expires: 04/08/2025Start: 15-81-1114Agfuyfqyd for malignant neoplasm of breastMammogram NOMS HealthcareStart: 02-07-2024 End: 19-27-6255RJD W Auto Differential panel - BloodCBC and differential Lab Routine Medicare annual wellness visit, subsequent Pure hypercholesterolemia (CMS/HCC) Expected: 02/07/2024 (Approximate), Expires: 02/06/2025[facility] Healthcare Comment on above:Expected: 02/07/2024 (Approximate), Expires: 02/06/2025Start: 02-07-2024 End: 78-87-0886Wttweyukxjksn metabolic 2000 panel - Serum or PlasmaComprehensive metabolic panel Lab Routine Medicare annual wellness visit, subsequent Pure hypercholesterolemia (CMS/HCC) Expected: 02/07/2024 (Approximate), Expires: 02/06/2025[facility] HealthcareComment on above:Expected: 02/07/2024 (Approximate), Expires: 02/06/2025Start: 02-07-2024 End: 83-58-5207SEJDWPFSU C AB W/RFL RNS, PCR W/RFL GENOTYPE,LIPAHEPATITIS C AB W/RFL RNS, PCR W/RFL GENOTYPE,LIPA Lab Routine Medicare annual wellness visit, subsequent Other problems related to lifestyle Expected: 02/07/2024 (Approximate), Expires: 02/06/2025[facility] HealthcareComment on above:Expected: 02/07/2024 (Approximate), Expires: 02/06/2025Start: 02-07-2024 End: 91-30-1186Sfbed 1996 panel - Serum or PlasmaLipid panel Lab Routine Medicare annual wellness visit, subsequent Pure hypercholesterolemia (CMS/HCC) Expected: 02/07/2024 (Approximate), Expires: 02/06/2025[facility] HealthcareComment on above:Expected: 02/07/2024 (Approximate), Expires: 02/06/2025Start: 02-07-2024 End: 97-51-8861Wpfpbqb encounter svrsxraco27/20/2024 10:00 AM EST Office Visit [facility] [address] [facility] [address] [place] [address] Jamilah June PA [address] [facility] [address] [place] [address] ArrivedNOMS CI FMComment on above:ArrivedStart: 09-07-2024Medicare Annual Wellness (AWV)Medicare Annual Wellness (AWV)[facility] HealthcareStart: 24-41-7110Yepfq-19 Vaccine ( season)Covid-19 Vaccine ( season)[facility]: 47-05-6611Pblyedgin vaccination Influenza Vaccine (#1)[facility] HealthcareStart: 24-00-2062RvuiipzcfEast Ohio Regional Hospitaltart: 39-00-6986Yebkxzxpu for malignant neoplasm of breastMammogram ScreeningVan Wert County Hospitaltart: 79-37-2163Tvrccwoyw for malignant neoplasm of colonVan Wert County Hospitaltart: 22-58-5083Wshpsklslyly Vaccine: 50+ (1 of 1 - PCV) Pneumococcal Vaccine: 50+ (1 of 1 - PCV)[facility]: 09-14-2007 Shingrix Vaccine (1 of 2)Shingrix Vaccine (1 of 2)[facility]: 10-31-6798Enpjzmxu ScreeningDiabetes ScreeningVan Wert County Hospitaltart: 2002 Lipid panelLipid ScreeningVan Wert County Hospitaltart: 53-99-7364Ltnrhxyze for malignant neoplasm of colonVan Wert County Hospitaltart: 45-30-7298Vjxyblnocryh Vaccine: 65+ Years (1 of 2 - PCV)Pneumococcal Vaccine: 65+ Years (1 of 2 - PCV) [facility] HealthcareStart: 32-51-5673Qrfdj microalbumin profileDTaP,Tdap,Td Vaccine (1 - Tdap)[facility]: 34-57-3637Bvaogwf ScreeningAnxiety Screening [facility]: 00-80-7600Ypkajjnnav ScreeningDepression Screening [facility] Hospitalrt: 74-59-4047Bkquqijsy C screeningHepatitis C Screening [facility]: 77-44-6878Krjazgogzevm Vaccine: 65+ Years (1 of 2 - PCV) Pneumococcal Vaccine: 65+ Years (1 of 2 - PCV)NOMS HealthcareStart: 1957 Screening for malignant neoplasm of colonNOMS HealthcarePatient EducationColon polyps Hemorrhoids (DC) Diverticulosis (DC)[facility] Work Phone: Urine [facility] Immunizations Immunization DateImmunizationNotesCare DnslwnfdFfbeuxvq35-52-6956FESI-MtC-8 mRNA (redsrkzbhff-wfef-nyzphqf) vaccineBlueroof 360 [facility]12-04-2021SARS-CoV-2 (COVID-19) mRNA BNT-162b2 lukeAbCelex Technologies [facility]04-03-2021SARS-CoV-2 (COVID-19) mRNA BNT-162b2 jinBlueroof 360 [facility]03-13-2021SARS-CoV-2 (COVID-19) mRNA BNT-162b2 TapSurge [facility] CenteryComment on above:Result Comment: 2023-05-03: PUR48CEGZIUB: Highlighted row has not occurred!99-00-2470sntnfmepm virus vaccine, unspecified formulation Petey HERBIE [facility] CenteryNEGATED: Highlighted row has not occurred!04-91-1467SKUU-CoV-2 mRNA (tozinameran 5y-11y) vaccineRamonClavister [facility] Payers DatePayer CategoryPayerPolicy [id number] 2024Medicare [id number] 2023Medicare (Managed Care) [id number] 2.16.840.1.637177.3.57[id number] 2.16.840.1.920728.3.57[id number] 2.16.840.1.556696.3.57[id number] 2.16.840.1.996015.3.57[id number] 2.16.840.1.236434.3.57[id number] 2.16.840.1.037769.3.57[id number] 2.16.840.1.029981.3.57[id number] 2.16.840.1.432782.3.57[id number] 2.16.840.1.689710.3.57[id number] 2.16.840.1.976568.3.57[id number] 2.16.840.1.872169.3.57[id number] 2.16.840.1.310472.3.579.[id number] 2.16.840.1.645521.3.579.2.626311-21-7903Ymmrvdl3686015 2.16.840.1.543662.3.579.2.774910-90-0860Cmjxgbd8672928 2.16.840.1.363980.3.57[id number] 2..840.1.142101.3.57[id number] 2.16.840.1.903832.3.57[id number] 2.16.840.1.533[id number] 2.16.840.1.812911.19Medicare [id number]-0s20-[id number] 2.16.840.1.632897.3.579.2.531 Social History DateTypeDetailFacilityUnknown if ever smokedNort [facility] Other Start: 11-23-2022 End: 94-25-8192Gff [facility]igned At [facility]: 11-23-2022 End: 70-02-3703Kxylllx smoking status NHISEx-smoker (finding)[facility] Hospitaltart: 68-97-5838Sno Assigned At [facility]tart: 30-27-1367Snzhugp smoking statusNeverExecutive Urology of [facility] CarlitauskyStart: 03-20-1974 End: 25-08-4290Gpreohd of tobacco useCurrent smokerNONH HealthcareStart: 03-20-1974 End: 06-11-3209Rzqhglp of tobacco useCigarette SmokerUTAH VALLEY HOSPITAL HealthcareStart: 11-23-2022 End: 46-75-1651Kdywdbajvj smoked current (pack per day) - Qhgznyti7XHXP HealthcareStart: 11-23-2022 End: 68-05-6113Abkjrtk use and exposureSmokeless tobacco non-userUTAH VALLEY HOSPITAL Healthcare Start: 06-29-2023 End: 93-91-9759Oyfsdakhj beverage intakeLifetime non-drinker (finding)[facility] CenterStart: 77-49-7889Ovjpgac Commentcaffeine intake: 1-2 cups per daySaint Francis Medical CenterStart: 09-05-0879Vfa assigned at birthNot on [facility] Tobacco smoking status NHISTobacco smoking consumption unknownPark[facility] Start: 80-96-5589Zgojcytfr beverage intakeCurrent drinker of alcohol (finding) [facility]: 38-56-7537Bsitvrv CommentsaldomVan Wert County Hospitaltart: 99-98-0742Fiovlt identityIdentifies as female gender (finding)[facility] SexFemale (finding)[facility] Goals DatePatient GoalDesired Activity/State Functional Status FmgtIsplihqzjxBvarwvBlkvcvwf31-08-5335Szeecxg Health Questionnaire 2 item (PHQ- 2) [Reported][facility] CenterFrvzfwiyon82-28-0420Quyggbx Health Questionnaire 2 item (PHQ- 2) [Reported][facility] CenterKtlsatsnmp58-22-8383Ydxoebc Health Questionnaire 2 item (PHQ- 2) [Reported][facility] CenterPuuizxdose64-42-6647Hkfekuiyml StatusN/AExecutive Urology of [facility]11-20-2024Patient Health Questionnaire 2 item (PHQ-2) [Reported][facility] CenterWnhmchahrf85-85-6591Wrxjeihqro StatusN/AExec[facility]rology of [facility]04-29-2024Functional StatusN/A [facility]02-14-2024Functional StatusN/AExec[facility]rology of [facility] Clinical Notes 10-19-2011 to 01-09-2025 Note Date & XlxbEswnUhibgvrd16-26-7193 Evaluation note* Diagnosis Onset Date Resolution Status Admit Date Acute UTI acuteOctober 2024 3:49pm [facility] Work Phone: 1(946) 474-498709-02-2025 History of Present illness Narrative* Jamilah Ku, SCHOOL SPEECH THERAPIST - 11/19/2024 11:10 AM EDT Reason for Appointment: Patient ID: Jeanie Hardin is a 69 y.o. female who presents for Follow-up (Pt present today for a f/up visit to discuss US results. (Ovarian cyst)) Patient presents today for Follow up appointment to discuss results. MEDICATIONS Current Outpatient Medications Medication Instructions Calcium Carbonate-Vitamin D (Oyster Shell Calcium/D) 500-5 MG-MCG tablet 1 tablet, 2 times daily with meals estradiol (Estrace) 0.1 MG/GM vaginal cream INSERT 1 gram VAGINALLY on MONDAY and MONDAY estradiol (Estrace) 0.1 MG/GM vaginal cream 2g vaginal daily for 2 weeks, then 2 times weekly following initial 2 weeks loratadine-pseudoephedrine ER (Claritin-D 24 Hour) 10-240 MG 24 hr tablet 1 tablet, Oral, Daily, Donot crush, chew, or split. mirabegron ER (MYRBETRIQ) 50 mg, Oral, Daily Multiple Vitamin (multivitamin) capsule 1 capsule, Daily Multiple Vitamins-Minerals (PRESERVISION AREDS PO) Take by mouth ALLERGIES No Known Allergies PROBLEMS Active Ambulatory [...] Types: Cigarettes Start date: 1975 Quit date: 2010 Years since quittin.6 Smokeless tobacco: Never Vaping [...] Respiratory: Negative. Cardiovascular: Negative. Gastrointestinal: Negative. Genitourinary: Negative. Musculoskeletal: Negative. Skin: Negative. Neurological: Negative. All other systems reviewed and are negative. Hematological: Negative. Endocrine: Negative. Allergic/Immunologic: Negative. OBJECTIVE Objective: Physical Exam Constitutional: Appearance: Normal appearance. She is well-developed. Cardiovascular: Rate and Rhythm: Normal rate and regular rhythm. Pulmonary: Effort: Pulmonary effort is normal. Breath sounds: Normal breath sounds. Abdominal: General: Bowel sounds are normal. There [...] nursing note reviewed. Exam conducted with a machine tool dresser present. Vitals: Estimated body mass index is 24.33 kg/m as calculated from the following: Height as of 10/22/24: 5' 2 . Weight as of this encounter: 133 lb. BP: 118/72 No LMP recorded. Patient has had a hysterectomy. ASSESSMENT & PLAN ICD-10-CM 1. Encounter to discuss test results Z71.2 2. Cyst of right ovary N83.201 US Pelvis w/ TV Reviewed ultrasound with pt in detail. Given ultrasound order to have obtained in 4 months to document regression, pt to return in 4 months for annual exam. Documented by Jamilah Ku LPN on behalf of: Christ Ewing DO documented in this encounterSaint Francis Medical CenterAmetnymwgj74-45-8212 History of Present illness Narrative* Jeanie Nash LPN - 11/04/2024 9:40 AM EDT Reason for Appointment: Patient ID: Jeanie Hardin is a 69 y.o. female who presents [...] COVID Cystourethrocele 2009 H/O degenerative disc disease 2012 History of partial hysterectomy 2009 Trigger thumb of left hand 2013 HISTORY PAST MEDICAL HISTORY SOCIAL HISTORY Past Medical History: Diagnosis Date Allergic COVID Cystourethrocele 2009 H/O degenerative disc disease 2012 History of partial hysterectomy 2009 partial, bladder susp. and rectal repair Trigger thumb of left hand 2013 Social History Tobacco Use Smoking status: Former Current packs/day: 0.00 Average packs/day: 1 pack/day for 34.0 years (34.0 ttl pk-yrs) Types: Cigarettes Start date: 1975 Quit date: 2010 Years since quittin.6 Smokeless tobacco: Never Vaping [...] 2009? PARTIAL HYSTERECTOMY 2009 SPINE SURGERY Fusion 2011 TUBAL LIGATION 02/1985 REVIEW OF SYSTEMS Review [...] nursing note reviewed. Exam conducted with a machine tool dresser present. Vitals: Estimated body mass index is 24.84 kg/m as calculated from the following: Height as of 25: 5' 2 . Weight as of this [...] itching at time of results. Documented by Jeanie Nash LPN on behalf of: Christ Ewing DO documented in this encounterSaint Francis Medical [id number] History of Present illness Narrative* Iván Marroquin MD - 10/22/2024 2:01 PM EDTAssociated Problem(s): Diverticulitis Add Probiotic to help replenish the good bacteria that are destroyed by the Antibiotics Florastor Florajen Align or try Activia in Yogurt Probiotics reduce the risk of antibiotic induced diarrhea Needs f/up with Scientific Database Curator * Iván Marroquin MD - 10/22/2024 2:00 PM EDT Images from the original note were not included. Subjective Patient ID: Jeanie Hardin is a 69 y.o. female who presents for Diverticulitis. Pt is having trouble with her diverticulitis, Monday it hit her again with nausea vomiting abd pain, then today there is abd pain also been getting hot and cold Pt went up to [facility] to gastro, they had stated the next [...] rectal repair Trigger thumb of left hand 2013 Past Surgical History: Procedure Laterality Date BACK SURGERY Right 11/02/2011 BREAST BIOPSY COLONOSCOPY 2016 dr. flanagan ELBOW SURGERY 2005 tendons removed on both elbows dr. santamaria HYSTERECTOMY Partial 2009? PARTIAL HYSTERECTOMY 2009 SPINE SURGERY Fusion 2012 TUBAL LIGATION 02/1985 Visit Vitals BP 112/78 Pulse 108 Ht 5' 2 Wt 133 lb SpO2 98% BMI 24.33 kg/m Smoking Status Former BSA 1.62 m Review of Systems Gastrointestinal: Positive for abdominal [...] of antibiotic induced diarrhea Needs f/up with Scientific Database Curator Relevant Medications ciprofloxacin (Cipro) 500 MG tablet Other Relevant Orders CT abdomen pelvis w and wo IV contrast Creatinine, Serum OAB (overactive bladder) Relevant Medications mirabegron ER (Myrbetriq) 50 MG 24 hr tablet No follow-ups on file. documented in this encounterSaint Francis Medical [id number] History and physical note * Yumi Paula MD - 10/16/2024 1:00 PM EDT Images from the original note were not included. COLORECTAL SURGERY New Patient Visit October 16, 2024 Chief Complaint: Diverticulitis History of Present Illness: Jeanie Hardin is a 69 year old year old female being seen in clinic at the request of Namrata Frank CNP regarding Diverticulitis. The patient is a 69-year-old female with diverticulosis, presenting for evaluation and management of recurrent episodes of abdominal pain, most recently complicated by diverticulitis in September. Currently she denies abdominal pain, is having normal bowel function and feels well. She reports experiencing intermittent episodes of abdominal pain for several years, initially occurring three to four times per year prior to her halfway five years ago. She previously attributed these episodes to specific foods, such as meals at [employer]. The pain is typically located in the lower abdomen, though in the past few days she has also noticed transient discomfort in the upper abdomen that resolves spontaneously. She describes the onset of her most severe episodes as occurring overnight, awakening her from sleep with a sensation of needing to have a bowel movement but beingunable to do so, accompanied by significant pain. During her most recent episode in September, she awokefeeling well but developed abdominal pain overnight, followed by repeated unsuccessful attempts to have a bowel movement and ultimately vomiting after eating breakfast. She recalls a similar episode in March, which also involved overnight onset, abdominal pain, and vomiting. She states that vomiting has only occurred during her most severe episodes. She was hospitalized in September in [facility] for diverticulitis, where she received antibioticsand Tylenol for inflammation. She reports that her primary care provider also prescribed antibiotics for a similar episode in March, but no imaging was performed at that time. She denies any prior hospitalizations for abdominal pain before these episodes. She has not experienced symptoms such as low blood pressure or rapid heart rate during these events. She reports that her pain episodes are always worse overnight and do not resolve within a few hours. She denies any urinary symptoms, including blood or air in the urine, and reports no issues with urination. Last colonoscopy was 3 years ago and she feels that this was normal. Her only previous abdominal surgery was a partial hysterectomywith oophorectomy. COLONOSCOPY: None presently on file Office Visit dated 10/02/2024 Namrata Frank CNP ([facility] Everywhere): Assessment/Plan Diagnoses and all orders for this visit: Diverticulitis - CT abdomen pelvis wo IV contrast; Future - Ambulatory referral to Gastroenterology; [facility] recommended that pt have a CT of the abdomen and pelvis once she completes the ATB treatment. CT ordered for this pt. Pt is requesting to be seen by a specialist. Explained to pt that they would not have any further recommendations. She insisted in seeing pt. Bilateral ovarian cysts - Ambulatory referral to Obstetrics / Gynecology; Future - CT abdomen pelvis wo IV contrast; Future Pt has a partial hysterectomy. The CT showed that she has encapsulated ovarian cysts. She is requesting to see someone. She is wanting her ovaries to be taken out. Await referral. No follow-ups on file. CT ABDOMEN/PELVIS W CON dated 09/23/2024 ([facility] [employer]-Scanned Documents): CT ABDOMEN/PELVIS W CON dated 09/20/2024 ([employer]Scanned Documents): Office Visit dated 05/30/2024 completed by YANELY Braga([facility] Everywhere): Assessment/Plan 1. Acute non-recurrent frontal sinusitis (Primary) Discussed diagnosis with the pt, use of augmentin and its most common side effects. Advised to increase her fluids, rest, continue otc decongestant of her choice such as sudafed, continue the atb as ordered and follow up as needed for continued or worsening symptoms. - amoxicillin-clavulanate (Augmentin) 875-125 MG tablet; Take 1 tablet (875 mg) by mouth in the morning and 1 tablet (875 mg) before bedtime. Do all this for 10 days. Dispense: 20 tablet; Refill: 0 2. Diverticulitis The pt presents with a history of diverticulitis today. She reports some lower quadrant pain 2-3 days ago. She reports since she had a bowel movement this has subsided. She reports that her stools are sometimes difficult to get out. She is unsure of what she needs to do and requests information regarding an appropriate diet for her hx of diverticulitis. Diet discussed with the pt today. Colace isadded today and its use is discussed at length. She is in agreement to try this medication. She is also encouraged to continue the daily probiotic. - docusate sodium (Colace) 100 MG capsule; Take 1 capsule (100 mg) by mouth Daily Dispense: 30 capsule; Refill: 1 No follow-ups on file. XR ABDOMEN dated 04/08/2024 ([facility] Everywhere): Findings: Mild fecal loading of the colon. The abdominal bowel gas pattern is nonobstructive. No mass, organomegaly, or suspicious calcification. Negative for free intraperitoneal air. The skeleton is remarkable for postprocedural posterior elemental surgical changes at the lumbosacral junction. Impression: Negative for intestinal stasis. Mild fecal loading of the colon. PAST MEDICAL HISTORY Diagnosis Date Ovarian cyst x2 PAST SURGICAL HISTORY Procedure Laterality Date PAST SURGICAL HISTORY OF 2008 Partial Hysterectomy. Bladder lift and Rectal Repair. PAST SURGICAL HISTORY OF Bilateral 2004 Elbow Surgery PAST SURGICAL HISTORY OF 02/1985 Tubal Ligation PAST SURGICAL HISTORY OF 11/02/2011 Spinal Fusion ([facility]) PAST SURGICAL HISTORY OF Left 10/15/2012 Left Thumb, Trigger Finger Current Outpatient Medications Medication Sig Dispense Refill multivit-min/ferrous fumarate (MULTI VITAMIN PO) Take by mouth. vit A/vit C/vit E/zinc/copper (PRESERVISION AREDS PO) Take by mouth. Lactobacillus acidophilus (PROBIOTIC PO) Take by mouth. loratadine (CLARITIN) 10 mg tablet once daily. mirabegron (MYRBETRIQ) 50 mg Tb24 Take 50 mg by mouth. estradiol (ESTRACE) 0.01 % (0.1 mg/gram) vaginal cream INSERT 1 gram VAGINALLY on MONDAY and MONDAY MEDICATION, NON-DATABASE Calcium Citrate + D3 No current facility-administered medications for this visit. ALLERGIES No Known Allergies Review of Systems / PACC screen: Do you have difficulty climbing a full flight of stairs without feeling short of breath? no Do you require oxygen for your breathing or have your gone to an emergency department because of breathing problems? no Are you on dialysis or have you been told that your kidneys do not work well as they should? no Do have an implanted cardiac device (pacemaker, defibrillator etc.) that has not been checked in the last 6 months? no Have you had an organ transplant? no Have you been told that you had excessive bleeding during surgical procedures or do you take blood thinning medications other than aspirin? no Have you ever had a heart attack, heart stents/surgery, valve problems, or other heart problems? Yes, HLD Have you had a stroke, seizures, or unexplained loss of consciousness? no Do you have a neurologic condition like Parkinson's disease or multiple sclerosis? no Have you or a blood relative had a life-threatening reaction to anesthesia? no Do you have cirrhosis of the liver or other liver disease? no Have you had a blood clot within the past year? no Do you take insulin or other injections for diabetes? no Do you have sleep apnea or have you been told you may have sleep apnea? no Do you have other implanted devices (deep brain stimulator, spinal cord stimulator, etc.)? no Physical Exam: Sensitive Exam: no BP 139/76 Pulse 80 Temp 36.4 C (97.6 F) (Temporal) Ht 160 cm (5' 3 ) Wt 61.2 kg (135 lb) SpO2 98% BMI 23.91 kg/m General Appearance: Well appearing, alert, in no acute distress, well-hydrated, well nourished. Lungs: unlabored, equal excursion, no use of accessory muscles of respiration Heart: RRR Edema: no Abdomen: Abdomen soft, non-tender. Bowel sounds normal. No masses, organomegaly Ext: wwp Neuro: a/a/ox3, moving all ext spontaneously, equally bilaterally Assessment Medical Decision Making: Assessment & Diagnosis: Jeanie Hardin is a 69 year old female with a history of chronic abdominal pain and recent episode of diverticulitis. Data Reviewed: Tests & Documents Reviewed/ordered: Review of prior notes from non-[facility] team Review of Imaging: unavailable I have independently interpreted: unavailable I have discussed Jeanie Hardin's treatment plan and/or results with the patient. Treatment plan: We discussed diverticulosis and diverticulitis, abdominal pain, disordered bowel habits. At this point, I am not sure that all of her episodes of abdominal pain are associated with diverticulitis. I think that given her previous colonoscopy was at least 3 years ago, she should proceed with repeat colonoscopy. We would like to do this about 2 months post-resolution of symptoms which would be mid- t o late November. I asked that she present for evaluation to her local ED or discuss with her pcp depending on symptoms, for CT the next time she has her typical abdominal pain to establish that her pain is associated with diverticulitis in the same place. If she has recurrent episodes she should let us know. Ok to eat high fiber diet including popcorn, etc. Will have her follow up after colonoscopy in early December. All questions answered. She voiced understanding and was comfortable with thisplan. Yumi Paula MD Colorectal Surgery Risk of morbidity, mortality and/or complications of treatment plan: moderate CORS RESEARCH DISCUSSION - Surgeon DID NOT DISCUSS Colorectal Research with the patient during encounter. [facility] Work Phone: [phone] History and physical note* Yumi Paula MD - 10/16/2024 1:00 PM EDT Images from the original note were not included. COLORECTAL SURGERY New Patient Visit October 16, 2024 Chief Complaint: Diverticulitis History of Present Illness: Jeanie Hardin is a 69 year old year old female being seen in clinic at the request of Namrata Frank CNP regarding Diverticulitis. The patient is a 69-year-old female with diverticulosis, presenting for evaluation and management of recurrent episodes of abdominal pain, most recently complicated by diverticulitis in September. Currently she denies abdominal pain, is having normal bowel function and feels well. She reports experiencing intermittent episodes of abdominal pain for several years, initially occurring three to four times per year prior to her halfway five years ago. She previously attributed these episodes to specific foods, such as meals at [employer]. The pain is typically located in the lower abdomen, though in the past few days she has also noticed transient discomfort in the upper abdomen that resolves spontaneously. She describes the onset of her most severe episodes as occurring overnight, awakening her from sleep with a sensation of needing to have a bowel movement but beingunable to do so, accompanied by significant pain. During her most recent episode in September, she awokefeeling well but developed abdominal pain overnight, followed by repeated unsuccessful attempts to have a bowel movement and ultimately vomiting after eating breakfast. She recalls a similar episode in March, which also involved overnight onset, abdominal pain, and vomiting. She states that vomiting has only occurred during her most severe episodes. She was hospitalized in September in [facility] for diverticulitis, where she received antibioticsand Tylenol for inflammation. She reports that her primary care provider also prescribed antibiotics for a similar episode in March, but no imaging was performed at that time. She denies any prior hospitalizations for abdominal pain before these episodes. She has not experienced symptoms such as low blood pressure or rapid heart rate during these events. She reports that her pain episodes are always worse overnight and do not resolve within a few hours. She denies any urinary symptoms, including blood or air in the urine, and reports no issues with urination. Last colonoscopy was 3 years ago and she feels that this was normal. Her only previous abdominal surgery was a partial hysterectomywith oophorectomy. COLONOSCOPY: None presently on file Office Visit dated 10/02/2024 Namrata Frank CNP ([facility] Everywhere): Assessment/Plan Diagnoses and all orders for this visit: Diverticulitis - CT abdomen pelvis wo IV contrast; Future - Ambulatory referral to Gastroenterology; [facility] recommended that pt have a CT of the abdomen and pelvis once she completes the ATB treatment. CT ordered for this pt. Pt is requesting to be seen by a specialist. Explained to pt that they would not have any further recommendations. She insisted in seeing pt. Bilateral ovarian cysts - Ambulatory referral to Obstetrics / Gynecology; Future - CT abdomen pelvis wo IV contrast; Future Pt has a partial hysterectomy. The CT showed that she has encapsulated ovarian cysts. She is requesting to see someone. She is wanting her ovaries to be taken out. Await referral. No follow-ups on file. CT ABDOMEN/PELVIS W CON dated 09/23/2024 ([employer]-Scanned Documents): CT ABDOMEN/PELVIS W CON dated 09/20/2024 ([employer]Scanned Documents): Office Visit dated 05/30/2024 completed by YANELY Braga([facility] Everywhere): Assessment/Plan 1. Acute non-recurrent frontal sinusitis (Primary) Discussed diagnosis with the pt, use of augmentin and its most common side effects. Advised to increase her fluids, rest, continue otc decongestant of her choice such as sudafed, continue the atb as ordered and follow up as needed for continued or worsening symptoms. - amoxicillin-clavulanate (Augmentin) 875-125 MG tablet; Take 1 tablet (875 mg) by mouth in the morning and 1 tablet (875 mg) before bedtime. Do all this for 10 days. Dispense: 20 tablet; Refill: 0 2. Diverticulitis The pt presents with a history of diverticulitis today. She reports some lower quadrant pain 2-3 days ago. She reports since she had a bowel movement this has subsided. She reports that her stools are sometimes difficult to get out. She is unsure of what she needs to do and requests information regarding an appropriate diet for her hx of diverticulitis. Diet discussed with the pt today. Colace isadded today and its use is discussed at length. She is in agreement to try this medication. She is also encouraged to continue the daily probiotic. - docusate sodium (Colace) 100 MG capsule; Take 1 capsule (100 mg) by mouth Daily Dispense: 30 capsule; Refill: 1 No follow-ups on file. XR ABDOMEN dated 04/08/2024 ([facility] Everywhere): Findings: Mild fecal loading of the colon. The abdominal bowel gas pattern is nonobstructive. No mass, organomegaly, or suspicious calcification. Negative for free intraperitoneal air. The skeleton is remarkable for postprocedural posterior elemental surgical changes at the lumbosacral junction. Impression: Negative for intestinal stasis. Mild fecal loading of the colon. PAST MEDICAL HISTORY Diagnosis Date Ovarian cyst x2 PAST SURGICAL HISTORY Procedure Laterality Date PAST SURGICAL HISTORY OF 2008 Partial Hysterectomy. Bladder lift and Rectal Repair. PAST SURGICAL HISTORY OF Bilateral 2004 Elbow Surgery PAST SURGICAL HISTORY OF 02/1985 Tubal Ligation PAST SURGICAL HISTORY OF 11/02/2011 Spinal Fusion ([facility]) PAST SURGICAL HISTORY OF Left 10/15/2012 Left Thumb, Trigger Finger Current Outpatient Medications Medication Sig Dispense Refill multivit-min/ferrous fumarate (MULTI VITAMIN PO) Take by mouth. vit A/vit C/vit E/zinc/copper (PRESERVISION AREDS PO) Take by mouth. Lactobacillus acidophilus (PROBIOTIC PO) Take by mouth. loratadine (CLARITIN) 10 mg tablet once daily. mirabegron (MYRBETRIQ) 50 mg Tb24 Take 50 mg by mouth. estradiol (ESTRACE) 0.01 % (0.1 mg/gram) vaginal cream INSERT 1 gram VAGINALLY on MONDAY and MONDAY MEDICATION, NON-DATABASE Calcium Citrate + D3 No current facility-administered medications for this visit. ALLERGIES No Known Allergies Review of Systems / PACC screen: Do you have difficulty climbing a full flight of stairs without feeling short of breath? no Do you require oxygen for your breathing or have your gone to an emergency department because of breathing problems? no Are you on dialysis or have you been told that your kidneys do not work well as they should? no Do have an implanted cardiac device (pacemaker, defibrillator etc.) that has not been checked in the last 6 months? no Have you had an organ transplant? no Have you been told that you had excessive bleeding during surgical procedures or do you take blood thinning medications other than aspirin? no Have you ever had a heart attack, heart stents/surgery, valve problems, or other heart problems? Yes, HLD Have you had a stroke, seizures, or unexplained loss of consciousness? no Do you have a neurologic condition like Parkinson's disease or multiple sclerosis? no Have you or a blood relative had a life-threatening reaction to anesthesia? no Do you have cirrhosis of the liver or other liver disease? no Have you had a blood clot within the past year? no Do you take insulin or other injections for diabetes? no Do you have sleep apnea or have you been told you may have sleep apnea? no Do you have other implanted devices (deep brain stimulator, spinal cord stimulator, etc.)? no Physical Exam: Sensitive Exam: no BP 139/76 Pulse 80 Temp 36.4 C (97.6 F) (Temporal) Ht 160 cm (5' 3 ) Wt 61.2 kg (135 lb) SpO2 98% BMI 23.91 kg/m General Appearance: Well appearing, alert, in no acute distress, well-hydrated, well nourished. Lungs: unlabored, equal excursion, no use of accessory muscles of respiration Heart: RRR Edema: no Abdomen: Abdomen soft, non-tender. Bowel sounds normal. No masses, organomegaly Ext: wwp Neuro: a/a/ox3, moving all ext spontaneously, equally bilaterally Assessment Medical Decision Making: Assessment & Diagnosis: Jeanie Hardin is a 69 year old female with a history of chronic abdominal pain and recent episode of diverticulitis. Data Reviewed: Tests & Documents Reviewed/ordered: Review of prior notes from non-[facility] team Review of Imaging: unavailable I have independently interpreted: unavailable I have discussed Jeanie Hardin's treatment plan and/or results with the patient. Treatment plan: We discussed diverticulosis and diverticulitis, abdominal pain, disordered bowel habits. At this point, I am not sure that all of her episodes of abdominal pain are associated with diverticulitis. I think that given her previous colonoscopy was at least 3 years ago, she should proceed with repeat colonoscopy. We would like to do this about 2 months post-resolution of symptoms which would be mid- t o late November. I asked that she present for evaluation to her local ED or discuss with her pcp depending on symptoms, for CT the next time she has her typical abdominal pain to establish that her pain is associated with diverticulitis in the same place. If she has recurrent episodes she should let us know. Ok to eat high fiber diet including popcorn, etc. Will have her follow up after colonoscopy in early December. All questions answered. She voiced understanding and was comfortable with thisplan. Yumi Paula MD Colorectal Surgery Risk of morbidity, mortality and/or complications of treatment plan: moderate CORS RESEARCH DISCUSSION - Surgeon DID NOT DISCUSS Colorectal Research with the patient during encounter. documented in this encounterPark[facility] History of Present illness Narrative* Namrata Frank, FLORENCIA - 10/02/2024 9:00 AM EDT Images from the original note were not included. Subjective Patient ID: Jeanie Hardin is a 69 y.o. female who presents for hospital follow up. Jeanie presents today for a hospital follow for diverticulitis. She was on vacation in [facility] and was feeling fine and then she started to throw up and then was admitted for 4 days for Iv fluids and antibiotics. This happened on September 20. Over the past 2 weeks, how often [...] crush, chew, or split. 30 tablet 11 mirabegron ER (Myrbetriq) 50 MG 24 hr tablet Take 50 mg by mouth Daily Multiple Vitamin (multivitamin) capsule Take 1 capsule by mouth Daily Multiple Vitamins-Minerals (PRESERVISION AREDS PO) Take by mouth No current facility-administered medications on file prior to visit. I have reviewed and reconciled the history and medication list with the patient today. No Known Allergies Social History Tobacco Use Smoking status: Former Current packs/day: 0.00 Average packs/day: 1 pack/day for 34.0 years (34.0 ttl pk-yrs) Types: Cigarettes Start date: 1975 Quit date: 2010 Years since quittin.5 Smokeless tobacco: Never Vaping Use Vaping status: [...] on both elbows dr. santamaria HYSTERECTOMY Partial 2008? PARTIAL HYSTERECTOMY 2009 SPINE SURGERY Fusion 2012 TUBAL LIGATION 02/1985 Visit Vitals Smoking Status Former Review of Systems Constitutional: Negative. HENT: Negative. Eyes: Negative. Respiratory: Negative. Cardiovascular: Negative. Gastrointestinal: Negative. Genitourinary: Negative. Musculoskeletal: Negative. Skin: Negative. Neurological: Negative. Psychiatric/Behavioral: Negative. Endocrine: Negative. Objective Physical Exam Vitals reviewed. Constitutional: Appearance: Normal appearance. HENT: Head: Normocephalic. Nose: Nose normal. Mouth/Throat: Mouth: Mucous membranes are moist. Pharynx: Oropharynx is clear. Eyes: Conjunctiva/sclera: Conjunctivae normal. Cardiovascular: Rate and Rhythm: Normal rate. Pulmonary: Effort: Pulmonary effort is normal. Abdominal: General: There is no distension. Palpations: Abdomen is soft. There is mass. Skin: General: Skin is warm and dry. Neurological: General: No focal deficit present. Mental Status: She is alert and oriented to person, place, and time. Psychiatric: Mood and Affect: Mood normal. Behavior: Behavior normal. Thought Content: Thought content normal. Judgment: Judgment normal. Assessment/Plan Diagnoses and all orders for this visit: Diverticulitis - CT abdomen pelvis wo IV contrast; Future - Ambulatory referral to Gastroenterology; [facility] recommended that pt have a CT of the abdomen and pelvis once she completes the ATB treatment. CT ordered for this pt. Pt is requesting to be seen by a specialist. Explained to pt that they would not have any further recommendations. She insisted in seeing pt. Bilateral ovarian cysts - Ambulatory referral to Obstetrics / Gynecology; Future - CT abdomen pelvis wo IV contrast; Future Pt has a partial hysterectomy. The CT showed that she has encapsulated ovarian cysts. She is requesting to see someone. She is wanting her ovaries to be taken out. Await referral. No follow-ups on file. documented in this encounterSaint Francis Medical [id number] Telephone encounter Note* Telephone Encounter - HA RESENDEZ - 08/14/2024 9:01 AM EDT The RX sent yesterday was not the 24 hr [facility] [id number] Miscellaneous Notes* Telephone Encounter - HA RESENDEZ - 08/14/2024 9:01 AM EDT The RX sent yesterday was not the 24 hr * Telephone Encounter - HA RESENDEZ - 08/13/2024 4:55 PM EDT Please send Claritin D 24 hr to [facility] in [place]. documented in this encounterSaint Francis Medical [id number] Telephone encounter Note* Telephone Encounter - HA RESENDEZ - 08/13/2024 4:55 PM EDT Please send Claritin D 24 hr to [facility] in [place]. [facility] [id number] History of Present illness Narrative* Namrata Frank, FLORENCIA - 07/02/2024 9:30 AM EDT Images from the original note were not included. Subjective Patient ID: Jeanie Hardin is a 68 y.o. female who presents for hot flashes. Jeanie presents today for hot flashes. She was given an ABX for diverticulitis and it made her feel hot. She also thinks she might has a UTI. UTI This is a new problem. The current episode started 1 to 4 weeks ago. The problem is unchanged. Associated symptoms include hematuria. Current Outpatient Medications on File Prior to Visit Medication Sig Dispense Refill Calcium Carbonate-Vitamin D (Oyster Shell Calcium/D) 500-5 MG-MCG tablet Take 1 tablet by mouth in the morning and 1 tablet in the evening. Take with meals. docusate sodium (Colace) 100 MG capsule Take 1 capsule (100 mg) by mouth Daily 30 capsule 1 estradiol (Estrace) 0.1 MG/GM vaginal cream INSERT 1 gram VAGINALLY on MONDAY and MONDAY loratadine (Claritin) 10 MG tablet 1 (one) time each day at the same time. mirabegron ER (Myrbetriq) 50 MG 24 hr tablet Take 50 mg by mouth Daily Multiple Vitamin (multivitamin) capsule Take 1 capsule by mouth Daily Multiple Vitamins-Minerals (PRESERVISION AREDS PO) Take by mouth No current facility-administered medications on file prior to visit. I have reviewed and reconciled the history and medication list with the patient today. No Known Allergies Social History Tobacco Use Smoking status: Former Current packs/day: 0.00 Average packs/day: 1 pack/day for 34.0 years (34.0 ttl pk-yrs) Types: Cigarettes Start date: 1975 Quit date: 2009 Years since quittin.2 Smokeless tobacco: Never Vaping Use Vaping status: Never Used Substance Use Topics Alcohol use: Never Comment: caffeine intake: 1-2 cups per day Drug use: Yes Types: Marijuana Family History Problem Relation Name Age of Onset Stroke Mother Cancer Brother Aron Chavarria Past Medical History: Diagnosis Date Allergic COVID Cystourethrocele 2008 H/O degenerative disc disease 2011 History of partial hysterectomy 2009 partial, bladder susp. and rectal repair Trigger thumb of left hand 2012 Past Surgical History: Procedure Laterality Date BACK SURGERY Right 11/02/2011 BREAST BIOPSY COLONOSCOPY 2016 dr. flanagan ELBOW SURGERY 2005 tendons removed on both elbows dr. santamaria HYSTERECTOMY Partial 2009? PARTIAL HYSTERECTOMY 2009 SPINE SURGERY Fusion 2012 TUBAL LIGATION 02/1985 Visit Vitals Smoking Status Former Review of Systems Constitutional: Positive for diaphoresis and hot flashes. HENT: Negative. Eyes: Negative. Respiratory: Negative. Cardiovascular: Negative. Gastrointestinal: Negative. Genitourinary: Positive for hematuria. Malodorous Musculoskeletal: Negative. Skin: Negative. Neurological: Negative. Psychiatric/Behavioral: Negative. Objective Physical Exam Vitals reviewed. Constitutional: Appearance: Normal appearance. HENT: Head: Normocephalic. Nose: Nose normal. Mouth/Throat: Mouth: Mucous membranes are moist. Pharynx: Oropharynx is clear. Cardiovascular: Rate and Rhythm: Normal rate. Pulmonary: Effort: Pulmonary effort is normal. Skin: General: Skin is warm and dry. Neurological: General: No focal deficit present. Mental Status: She is alert and oriented to person, place, and time. Psychiatric: Mood and Affect: Mood normal. Behavior: Behavior normal. Assessment/Plan Diagnoses and all orders for this visit: Urinary tract infection with hematuria, site unspecified - cephalexin (Keflex) 500 MG capsule; Take 1 capsule (500 mg) by mouth in the morning and 1 capsule(500 mg) before bedtime. Do all this for 10 days. - URINARY TRACT INFECTION (HTRX); Future - POCT Urinalysis dipstick Start the above medications as directed. Provided patient with prescription for Pyridium for symptomatic relief. Advised of potential side effects including discoloration of urine. Increase water intake, get plenty of rest. Advised patient that the urine will be sent out for culture. May need to change the antibiotic based on the culture results. Cranberry juice ok. Avoid bath tubs and hot tubs or use the restroom afterwards, always wipe front to back, avoid fragrance soaps in that area, urinate after intercourse if sexually active. Discussed if patient develops any N/V, fever/chills, or symptoms dramatically increase, the patient is to go to the ER. Otherwise follow up at our office if no improvement in one week. No follow-ups on file. documented in this encounterSaint Francis Medical [id number] Hospital Discharge instructions Patient Education 04/26/2024 10:27:45 Urinary Incontinence Urinary Incontinence Urinary incontinence refers to a condition in which a person is unable to control where and when topass urine. A person with this condition will urinate involuntarily. This means that the person urinates when he or she does not mean to. What are the causes? This condition may be caused by: Medicines. Infections. Constipation. Overactive bladder muscles. Weak bladder muscles. Weak pelvic floor muscles. These muscles provide support for the bladder, intestine, and, in women,the uterus. Enlarged prostate in men. The prostate is a gland near the bladder. When it gets too big, it can pinch the urethra. With the urethra blocked, the bladder can weaken and lose the ability to empty properly. Surgery. Emotional factors, such as anxiety, stress, or post-traumatic stress disorder (PTSD). Spinal cord injury, nerve injury, or other neurological conditions. Pelvic organ prolapse. This happens in women when organs move out of place and into the vagina. This movement can prevent the bladder and urethra from working properly. What increases the risk? The following factors may make you more likely to develop this condition: Age. The older you are, the higher the risk. Obesity. Being physically inactive. and childbirth. Menopause. Diseases that affect the nerves or spinal cord. Long-term, or chronic, coughing. This can increase pressure on the bladder and pelvic floor muscles. What are the signs or symptoms? Symptoms may vary depending on the type of urinary incontinence you have. They include: A sudden urge to urinate, and passing urine involuntarily before you can get to a bathroom (urge incontinence). Suddenly passing urine when doing activities that force urine to pass, such as coughing, laughing, exercising, or sneezing (stress incontinence). Needing to urinate often but urinating only a small amount, or constantly dribbling urine (overflowincontinence). Urinating because you cannot get to the bathroom in time due to a physical disability, such as arthritis or injury, or due to a communication or thinking problem, such as Alzheimer's disease (functional incontinence). How is this diagnosed? This condition may be diagnosed based on: Your medical history. A physical exam. Tests, such as: ?Urine tests. ?X-rays of your kidney and bladder. ?Ultrasound. ?CT scan. ?Cystoscopy. In this procedure, a health care provider inserts a tube with a light and camera (cystoscope) through the urethra and into the bladder to check for problems. ?Urodynamic testing. These tests assess how well the bladder, urethra, and sphincter can store and release urine. There are different types of urodynamic tests, and they vary depending on what the test is measuring. To help diagnose your condition, your health care provider may recommend that you keep a log of when you urinate and how much you urinate. How is this treated? Treatment for this condition depends on the type of incontinence that you have and its cause. Treatment may include: Lifestyle changes, such as: ?Quitting smoking. ?Maintaining a healthy weight. ?Staying active. Try to get 150 minutes of moderate-intensity exercise every week. Ask your health care provider which activities are safe for you. ?Eating a healthy diet. ?Avoid high-fat foods, like fried foods. ?Avoid refined carbohydrates like white bread and white rice. ?Limit how much alcohol and caffeine you drink. ?Increase your fiber intake. Healthy sources of fiber include beans, whole grains, and fresh fruitsand vegetables. Behavioral changes, such as: ?Pelvic floor muscle exercises. ?Bladder training, such as lengthening the amount of time between bathroom breaks, or using the bathroom at regular intervals. ?Using techniques to suppress bladder urges. This can include distraction techniques or controlled breathing exercises. Medicines, such as: ?Medicines to relax the bladder muscles and prevent bladder spasms. ?Medicines to help slow or prevent the growth of a man's prostate. ?Botox injections. These can help relax the bladder muscles. Treatments, such as: ?Using pulses of electricity to help change bladder reflexes (electrical nerve stimulation). ?For women, using a biomedical equipment technician to prevent urine leaks. This is a small, tampon-like, disposabledevice that is inserted into the urethra. ?Injecting collagen or carbon beads (bulking agents) into the urinary sphincter. These can help thicken tissue and close the bladder opening. ?Surgery. Follow these instructions at home: Lifestyle Limit alcohol and caffeine. These can fill your bladder quickly and irritate it. Keep yourself clean to help prevent odors and skin damage. Ask your health care provider about special skin creams and cleansers that can protect the skin from urine. Consider wearing pads or adult diapers. Make sure to change them regularly, and always change them right after experiencing incontinence. General instructions Take zfbx-[id number] and prescription medicines only as told by your health care provider. Use the bathroom about every 3 4 hours, even if you do not feel the need to urinate. Try to empty your bladder completely every time. After urinating, wait a minute. Then try to urinate again. Make sure you are in a relaxed position while urinating. If your incontinence is caused by nerve problems, keep a log of the medicines you take and the times you go to the bathroom. Keep all follow-up visits. This is important. Where to find more information [employer] Digestive and Kidney Diseases: www.niddk.nih.gov [employer]: www.urologyhealth.org Contact a health care provider if: You have pain that gets worse. Your incontinence gets worse. Get help right away if: You have a fever or chills. You are unable to urinate. You have redness in your groin area or down your legs. Summary Urinary incontinence refers to a condition in which a person is unable to control where and when topass urine. This condition may be caused by medicines, infection, weak bladder muscles, weak pelvic floor muscles, enlargement of the prostate (in men), or surgery. Factors such as older age, obesity, and childbirth, menopause, neurological diseases, andchronic coughing may increase your risk for developing this condition. Types of urinary incontinence include urge incontinence, stress incontinence, overflow incontinence, and functional incontinence. This condition is usually treated first with lifestyle and behavioral changes, such as quitting smoking, eating a healthier diet, and doing regular pelvic floor exercises. Other treatment options include medicines, bulking agents, medical devices, electrical nerve stimulation, or surgery. This information is not intended to replace advice given to you by your health care provider. Make sure you discuss any questions you have with your health care provider. Document Revised: 10/09/2020 Document Reviewed: 10/09/2020 [employer] Patient Education [address] Follow Up Care 12/25/2023 10:30:31 With:HERBIE GARCIA, Petey Duncan, URL Address: [address] [place] [id number]- When: Unknown [facility] 02-07-2025 NotePatient Education Urology Urinary Incontinence Urinary incontinence refers to a condition in which a person is unable to control where and when topass urine. A person with this condition will urinate involuntarily. This means that the person urinates when he or she does not mean to. What are the causes? This condition may be caused by: ??? Medicines. ??? Infections. ??? Constipation. ??? Overactive bladder muscles. ??? Weak bladder muscles. ??? Weak pelvic floor muscles. These muscles provide support for the bladder, intestine, and, in women, the uterus. ??? Enlarged prostate in men. The prostate is a gland near the bladder. When it gets too big, it can pinch the urethra. With the urethra blocked, the bladder can weaken and lose the ability to empty properly. ??? Surgery. ??? Emotional factors, such as anxiety, stress, or post-traumatic stress disorder (PTSD). ??? Spinal cord injury, nerve injury, or other neurological conditions. ??? Pelvic organ prolapse. This happens in women when organs move out of place and into the vagina.This movement can prevent the bladder and urethra from working properly. What increases the risk? The following factors may make you more likely to develop this condition: ??? Age. The older you are, the higher the risk. ??? Obesity. ??? Being physically inactive. ??? and childbirth. ??? Menopause. ??? Diseases that affect the nerves or spinal cord. ??? Long-term, or chronic, coughing. This can increase pressure on the bladder and pelvic floor muscles. What are the signs or symptoms? Symptoms may vary depending on the type of urinary incontinence you have. They include: ??? A sudden urge to urinate, and passing urine involuntarily before you can get to a bathroom (urge incontinence). ??? Suddenly passing urine when doing activities that force urine to pass, such as coughing, laughing, exercising, or sneezing (stress incontinence). ??? Needing to urinate often but urinating only a small amount, or constantly dribbling urine (overflow incontinence). ??? Urinating because you cannot get to the bathroom in time due to a physical disability, such as arthritis or injury, or due to a communication or thinking problem, such as Alzheimer's disease (functional incontinence). How is this diagnosed? This condition may be diagnosed based on: ??? Your medical history. ??? A physical exam. ??? Tests, such as: ? Urine tests. ? X-rays of your kidney and bladder. ? Ultrasound. ? CT scan. ? Cystoscopy. In this procedure, a health care provider inserts a tube with a light and camera (cystoscope) through the urethra and into the bladder to check for problems. ? Urodynamic testing. These tests assess how well the bladder, urethra, and sphincter can store andrelease urine. There are different types of urodynamic tests, and they vary depending on what the test is measuring. To help diagnose your condition, your health care provider may recommend that you keep a log of when you urinate and how much you urinate. How is this treated? Treatment for this condition depends on the type of incontinence that you have and its cause. Treatment may include: ??? Lifestyle changes, such as: ? Quitting smoking. ? Maintaining a healthy weight. ? Staying active. Try to get 150 minutes of moderate-intensity exercise every week. Ask your healthcare provider which activities are safe for you. ? Eating a healthy diet. ? Avoid high-fat foods, like fried foods. ? Avoid refined carbohydrates like white bread and white rice. ? Limit how much alcohol and caffeine you drink. ? Increase your fiber intake. Healthy sources of fiber include beans, whole grains, and fresh fruits and vegetables. ??? Behavioral changes, such as: ? Pelvic floor muscle exercises. ? Bladder training, such as lengthening the amount of time between bathroom breaks, or using the bathroom at regular intervals. ? Using techniques to suppress bladder urges. This can include distraction techniques or controlledbreathing exercises. ??? Medicines, such as: ? Medicines to relax the bladder muscles and prevent bladder spasms. ? Medicines to help slow or prevent the growth of a man's prostate. ? Botox injections. These can help relax the bladder muscles. ??? Treatments, such as: ? Using pulses of electricity to help change bladder reflexes (electrical nerve stimulation). ? For women, using a biomedical equipment technician to prevent urine leaks. This is a small, tampon-like, disposable device that is inserted into the urethra. ? Injecting collagen or carbon beads (bulking agents) into the urinary sphincter. These can help thicken tissue and close the bladder opening. ? Surgery. Follow these instructions at home: Lifestyle ??? Limit alcohol and caffeine. These can fill your bladder quickly and irritate it. ??? Keep yourself clean to help prevent odors and skin damage. Ask your health care provider (more content not included)...[facility] 04-08-2024 History of Present illness Narrative* Iván Marroquin MD - 04/08/2024 10:43 AM ESTAssociated Problem(s): Tubular adenoma of colon Consult with GI when repeat colonoscopy should be * Iván Marroquin MD - 04/08/2024 10:39 AM ESTAssociated Problem(s): Chronic obstructive pulmonary disease, unspecified (CMS/HCC) No tobacco since 2008 No inhalers * Iván Marroquin MD - 04/08/2024 10:39 AM ESTAssociated Problem(s): Diverticulitis Consider CT scan Add Probiotic to help replenish the good bacteria that are destroyed by the Antibiotics Florastor Florajen Align or try Activia in Yogurt Probiotics reduce the risk of antibiotic induced diarrhea Watch for severe pain and fevers * Iván Marroquin MD - 04/08/2024 10:30 AM EST Images from the original note were not included. Subjective Patient ID: Jeanie Hardin is a 68 y.o. female who presents for bowel issues. Pt believes she has diverticulitis, will have pain in her stomach area, will vomit sometimes, constipation . Pt states she has this for years now. Pt states this is an everyday occurrence Pt has not tried any medication Current Outpatient Medications on File Prior to Visit Medication Sig Dispense Refill Calcium Carbonate-Vitamin D (Oyster Shell Calcium/D) 500-5 MG-MCG tablet Take 1 tablet by mouth in the morning and 1 tablet in the evening. Take with meals. estradiol (Estrace) 0.1 MG/GM vaginal cream INSERT 1 gram VAGINALLY on MONDAY and MONDAY loratadine (Claritin) 10 MG tablet 1 (one) time each day at the same time. Multiple Vitamin (multivitamin) capsule Take 1 capsule by mouth Daily Multiple Vitamins-Minerals (PRESERVISION AREDS PO) Take by mouth oxybutynin XL (Ditropan-XL) 15 MG 24 hr tablet Take 15 mg by mouth Daily No current facility-administered medications on file prior to visit. I have reviewed and reconciled the history and medication list with the patient today. No Known Allergies Social History Tobacco Use Smoking status: Former Current packs/day: 0.00 Average packs/day: 1 pack/day for 34.0 years (34.0 ttl pk-yrs) Types: Cigarettes Start date: 1975 Quit date: 2009 Years since quittin.0 Smokeless tobacco: Never Substance Use Topics Alcohol use: Never Comment: [...] 2012 TUBAL LIGATION 02/1985 Visit Vitals BP 110/80 Pulse 95 Ht 5' 2 Wt 138 lb SpO2 95% BMI 25.24 kg/m Smoking Status Former BSA 1.65 m Review of Systems Constitutional: Negative for chills and fever. Objective Physical Exam Constitutional: General: She is not in acute distress. Appearance: Normal appearance. HENT: Head: Normocephalic. Cardiovascular: Rate and Rhythm: Normal rate and regular rhythm. Pulmonary: Effort: Pulmonary effort is normal. No respiratory distress. Breath sounds: Normal breath sounds. Abdominal: General: Abdomen is flat. Bowel sounds are normal. Palpations: Abdomen is soft. Neurological: General: No focal deficit present. Mental Status: She is alert and oriented to person, place, and time. Psychiatric: Mood and Affect: Mood normal. Assessment/Plan Problem List Items Addressed This Visit Chronic obstructive pulmonary disease, unspecified (CMS/HCC) No tobacco since 2008 No inhalers Diverticulitis Consider CT scan Add Probiotic to help replenish the good bacteria that are destroyed by the Antibiotics Florastor Florajen Align or try Activia in Yogurt Probiotics reduce the risk of antibiotic induced diarrhea Watch for severe pain and fevers Relevant Medications ciprofloxacin (Cipro) 500 MG tablet Other Relevant Orders XR ABDOMEN 2 VIEW Diverticulosis of colon - Primary Relevant Medications ciprofloxacin (Cipro) 500 MG tablet Other Relevant Orders XR ABDOMEN 2 VIEW Generalized abdominal pain Relevant Medications ciprofloxacin (Cipro) 500 MG tablet Other Relevant Orders XR ABDOMEN 2 VIEW Tubular adenoma of colon No follow-ups on file. documented in this encounterSaint Francis Medical [id number] Telephone encounter Note* Telephone Encounter - RAMON Troy - 02/14/2024 10:29 AM EST ASCVD Risk Score 4.2% Risk of cardiovascular event (coronary or stroke or non-fatal MT or stroke) in next 10 years.Statin recommended. [facility] [id number] Miscellaneous Notes* Telephone Encounter - RAMON Troy - 02/14/2024 10:29 AM EST ASCVD Risk Score 4.2% Risk of cardiovascular event (coronary or stroke or non-fatal MT or stroke) in next 10 years.Statin recommended. documented in this encounterSaint Francis Medical [id number] History of Present illness Narrative* RAMON Troy - 02/07/2024 10:00 AM EST Images from the original note were not included. Subjective Patient ID: Jeanie Hardin is a 68 y.o. female who presents for Medicare Annual Wellness VisitSubsequent. HPI States overall doing well. Loves to ride her motorcycle and travel. Going to [place] with her sister this weekend. Medicare Wellness Over the past 2 weeks, how often have you been bothered by any of the following problems? Little interest or pleasure in doing things: Not at all Feeling down, depressed, or hopeless: Not at all Patient Health Questionnaire-2 Score: 0 Over the past 2 weeks, how often have you been bothered by any of the following problems? Trouble falling or staying asleep, or sleeping too much: Not at all Feeling tired or having little energy: Not at all Poor appetite or overeating: Not at all Feeling bad about yourself - or that you are a failure or have let yourself or your family down: Not at all Trouble concentrating on things, such as reading the newspaper or watching television: Not at all Moving or speaking so slowly that other people could have noticed? Or the opposite - being so fidgety or restless that you have been moving around a lot more than usual.: Not at all Thoughts that you would be better off or hurting yourself in some way: Not at all Patient Health Questionnaire-9 Score: 0 Beckett Fall Risk History of Falling, Immediate or Within 3 Months: No Health Risk Assessment Form Do you need help eating, bathing, using the toilet, dressing, or getting around your home?: No Can you prepare your own meals?: Yes Can you do your own housework without help?: Yes Can you shop for groceries or clothes without help?: Yes Do you exercise for about 20 minutes 3 or more days a week?: Yes How confident are you that you can control and manage most of your health problems?: Very confident Can you mange your money, credit cards and accounts, pay bills and taxes?: Yes Vision Screening: Yes, no gross abnormalities Hearing Screening: Yes, no gross abnormalities Cognitive Screening Self Assessment: No overt cognitive deficiency is apparent by direct observation Three Word Registration: Leader, Season, Table Clock Drawing: Normal Clock - 2 Three Word Recall: All 3 words correct - 3 Total Score (0-5 Points): 5 Pain Assessment Pain Score: 0 - No pain Advance Care Planning Do you have a living will?: Yes Do you have a medical power of commercial litigation attorney?: Yes Current Outpatient Medications on File Prior to Visit Medication Sig Dispense Refill Calcium Carbonate-Vitamin D (Oyster Shell Calcium/D) 500-5 MG-MCG tablet Take 1 tablet by mouth in the morning and 1 tablet in the evening. Take with meals. estradiol (Estrace) 0.1 MG/GM vaginal cream INSERT 1 gram VAGINALLY on MONDAY and MONDAY loratadine (Claritin) 10 MG tablet 1 (one) time each day at the same time. Multiple Vitamin (multivitamin) capsule Take 1 capsule by mouth Daily Multiple Vitamins-Minerals (PRESERVISION AREDS PO) Take by mouth oxybutynin XL (Ditropan-XL) 15 MG 24 hr tablet Take 15 mg by mouth Daily [DISCONTINUED] Myrbetriq 50 MG 24 hr tablet Take 50 [...] Types: Cigarettes Start date: 1975 Quit date: 2010 Years since quittin.8 Smokeless tobacco: Never Substance Use Topics Alcohol use: Never Comment: caffeine intake: 1-2 cups per day Drug use: Yes Types: Marijuana Family History Problem Relation Name Age of Onset Stroke Mother Cancer Brother Aron Chavarria Past Medical History: Diagnosis Date Allergic COVID Cystourethrocele 2008 H/O degenerative disc disease 2011 History of [...] 2012 TUBAL LIGATION 02/1985 Visit Vitals BP 100/72 Pulse 85 Resp 16 Ht 5' 2 Wt 133 lb 3.2 oz SpO2 96% BMI 24.36 kg/m Smoking Status Former BSA 1.63 m Review of Systems Constitutional: Negative for chills, fatigue and fever. HENT: Negative for congestion, ear pain, rhinorrhea and sore throat. Eyes: Negative for pain, discharge and visual disturbance. Respiratory: Negative for cough, shortness of breath and wheezing. Cardiovascular: Negative for chest pain, palpitations and leg swelling. Gastrointestinal: Negative for abdominal pain, constipation, diarrhea, nausea and vomiting. Genitourinary: Negative for difficulty urinating, dysuria and frequency. Musculoskeletal: Negative for arthralgias and back pain. Skin: Negative for rash. Neurological: Negative for dizziness and numbness. Psychiatric/Behavioral: Negative for sleep disturbance. The patient is not nervous/anxious. Objective Physical Exam Constitutional: General: She is not in acute distress. Appearance: Normal appearance. She is well-developed. HENT: Head: Normocephalic and atraumatic. Right Ear: Tympanic membrane and ear canal normal. Left Ear: Tympanic membrane and ear canal normal. Nose: Nose normal. Mouth/Throat: Mouth: Mucous membranes are moist. Pharynx: No posterior oropharyngeal erythema. Eyes: General: No scleral icterus. Extraocular Movements: Extraocular movements intact. Conjunctiva/sclera: Conjunctivae normal. Pupils: Pupils are equal, round, and reactive to light. Neck: Vascular: No carotid bruit. Cardiovascular: Rate and Rhythm: Normal rate and regular rhythm. Heart sounds: Normal heart sounds. No murmur heard. Pulmonary: Effort: Pulmonary effort is normal. No respiratory distress. Breath sounds: Normal breath sounds. No wheezing, rhonchi or rales. Abdominal: General: Bowel sounds are normal. There is no distension. Palpations: Abdomen is soft. Tenderness: There is no abdominal tenderness. There is no guarding. Musculoskeletal: General: No swelling or deformity. Normal range of motion. Cervical back: Normal range of motion and neck supple. No tenderness. Skin: General: Skin is warm and dry. Capillary Refill: Capillary refill takes less than 2 seconds. Findings: No rash. Neurological: General: No focal deficit present. Mental Status: She is alert and oriented to person, place, and time. Cranial Nerves: No cranial nerve deficit. Sensory: No sensory deficit. Motor: No weakness. Gait: Gait normal. Deep Tendon Reflexes: Reflexes normal. Psychiatric: Mood and Affect: Mood normal. Behavior: Behavior normal. Thought Content: Thought content normal. Judgment: Judgment normal. Assessment & Plan 1. Medicare annual wellness visit, subsequent (Primary) Reviewed all relevant preventative screenings with the patient in detail. Medicare Wellness form completed and will be scanned into patient's chart. All needed testing was ordered. Will continue withyearly Medicare Wellness exams. - CBC and differential - Comprehensive metabolic panel - Lipid panel - HEPATITIS C AB W/RFL RNS, PCR W/RFL GENOTYPE,LIPA 2. ACP (advance care planning) Patient willing to discuss ACP. Pt has Living Will and DPOA in place. 3. Encounter for screening mammogram for malignant neoplasm of breast Provided patient with an order for an updated Mammogram. If results are negative/normal, will plan to continue with routine yearly screenings. - Bilateral screening mammogram with tomosynthesis; Future 4. 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 No changes in treatment are suggested at this time. 5. Chronic obstructive pulmonary disease, unspecified COPD type ([facility]/HCC) This is a chronic medical condition that is stable since last assessment. No changes in treatment are suggested at this time. 6. OAB (overactive bladder) The patient is seeing a er medical technician for this condition, treatment is deferred to that specialist. Correspondence from that specialist and any available testing were reviewed during today's visit. 7. Prolapse of urethra The patient is seeing a er medical technician for this condition, treatment is deferred to that specialist. Correspondence from that specialist and any available testing were reviewed during today's visit. 8. Stricture of female urethra, unspecified stricture type The patient is seeing a er medical technician for this condition, treatment is deferred to that specialist. Correspondence from that specialist and any available testing were reviewed during today's visit. 9. Urge incontinence The patient is seeing a er medical technician for this condition, treatment is deferred to that specialist. Correspondence from that specialist and any available testing were reviewed during today's visit. 10. Vaginal atrophy The patient is seeing a er medical technician for this condition, treatment is deferred to that specialist. Correspondence from that specialist and any available testing were reviewed during today's visit. 11. Sacroiliitis, not elsewhere classified ([facility]/HCC) This is a chronic medical condition that is stable since last assessment. No changes in treatment are suggested at this time. 12. Snapping thumb syndrome, unspecified laterality This is a chronic medical condition that is stable since last assessment. No changes in treatment are suggested at this time. 13. Chronic sinusitis, unspecified location This is a chronic medical condition that is stable since last assessment. No changes in treatment are suggested at this time. 14. Diverticulosis This is a chronic medical condition that is stable since last assessment. No changes in treatment are suggested at this time. 15. Seasonal allergic rhinitis due to pollen This is a chronic medical condition that is stable since last assessment. No changes in treatment are suggested at this time. 16. 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 No changes in treatment are suggested at this time. 17. Difficulty walking This is a chronic medical condition that is stable since last assessment. No changes in treatment are suggested at this time. 18. Fibrocystic breast changes, unspecified laterality The patient is seeing a er medical technician for this condition, treatment is deferred to that specialist. Correspondence from that specialist and any available testing were reviewed during today's visit. 19. History of hysterectomy The patient is seeing a er medical technician for this condition, treatment is deferred to that specialist. Correspondence from that specialist and any available testing were reviewed during today's visit. 20. Pure hypercholesterolemia ([facility]/HCC) This is a chronic medical condition that is stable since last assessment. No changes in treatment are suggested at this time. Will continue to monitor with routine labs. - CBC and differential - Comprehensive metabolic panel - Lipid panel 21. Urinary frequency The patient is seeing a er medical technician for this condition, treatment is deferred to that specialist. Correspondence from that specialist and any available testing were reviewed during today's visit. 22. Former smoker The patient was counseled on the importance of maintaining cigarette smoking abstinence. The patient continues to refrain from smoking and is committed to avoiding tobacco use. 23. Early dry stage nonexudative age-related macular degeneration of both eyes The patient is seeing a er medical technician for this condition, treatment is deferred to that specialist. Correspondence from that specialist and any available testing were reviewed during today's visit. 24. Other problems related to lifestyle Patient was born in 1956. She is agreeable to Hep C screening. - HEPATITIS C AB W/RFL RNS, PCR W/RFL GENOTYPE,LIPA Follow up in about 1 year (around 02/06/2025) for Medicare Wellness Visit. Jamilah ISAACS PA-C documented in this encounterSaint [facility] [id number] Hospital Discharge instructions Patient Education 12/25/2023 10:27:14 Atrophic Vaginitis Atrophic Vaginitis Atrophic vaginitis is a condition in which the tissues that line the vagina become dry and thin. This condition is most common in women who have stopped having regular menstrual periods (are in menopause). This usually starts when a woman is 45 to 55 years old. That is the time when a woman's estrogen levels begin to decrease. Estrogen is a female hormone. It helps to keep the tissues of the vagina moist. It stimulates the vagina to produce a clear fluid that lubricates the vagina for sex. This fluid also protects the vagina from infection. Lack of estrogen can cause the lining of the vagina to get thinner and dryer. Thevagina may also shrink in size. It may become less elastic. Atrophic vaginitis tends to get worse over time as a woman's estrogen level drops. What are the causes? This condition is caused by the normal drop in estrogen that happens around the time of menopause. What increases the risk? Certain conditions or situations may lower a woman's estrogen level, leading to a higher risk for atrophic vaginitis. You are more likely to develop this condition if: You are taking medicines that block estrogen. You have had your ovaries removed. You are being treated for cancer with radiation or medicines (chemotherapy). You have given or are . You are older than age 50. You smoke. What are the signs or symptoms? Symptoms of this condition include: Pain, soreness, a feeling of pressure, or bleeding during sex (dyspareunia). Vaginal burning, irritation, or itching. Pain or bleeding when a speculum is used in a vaginal exam. Having burning pain while urinating. Vaginal discharge. In some cases, there are no symptoms. How is this diagnosed? This condition is diagnosed based on your medical history and a physical exam. This will include a pelvic exam that checks the vaginal tissues. Though rare, you may also have other tests, including: A urine test. A test that checks the acid balance in your vagina (acid balance test). How is this treated? Treatment for this condition depends on how severe your symptoms are. Treatment may include: Using an gmzh-sly-erwygpj vaginal lubricant before sex. Using a long-acting vaginal moisturizer. Using low-dose estrogen for moderate to severe symptoms that do not respond to other treatments. Options include creams, tablets, and inserts (vaginal rings). Before you use a vaginal estrogen, tell your health care provider if you have a history of: ?Breast cancer. ?Endometrial cancer. ?Blood clots. If you are not sexually active and your symptoms are very mild, you may not need treatment. Follow these instructions at home: Medicines Take ehgj-dlf-orctyrq and prescription medicines only as told by your health care provider. Do not use herbal or alternative medicines unless your health care provider says that you can. Use oyzq-pai-csqclhi creams, lubricants, or moisturizers for dryness only as told by your health care provider. General instructions If your atrophic vaginitis is caused by menopause, discuss all of your menopause symptoms and treatment options with your health care provider. Do not douche. Do not use products that can make your vagina dry. These include: ?Scented feminine sprays. ?Scented tampons. ?Scented soaps. Vaginal sex can help to improve blood flow and elasticity of vaginal tissue. If you choose to have sex and it hurts, try using a water-soluble lubricant or moisturizer right before having sex. Contact a health care provider if: Your discharge looks different than normal. Your vagina has an unusual smell. You have new symptoms. Your symptoms do not improve with treatment. Your symptoms get worse. Summary Atrophic vaginitis is a condition in which the tissues that line the vagina become dry and thin. Itis most common in women who have stopped having regular menstrual periods (are in menopause). Treatment options include using vaginal lubricants and low-dose vaginal estrogen. Contact a health care provider if your vagina has an unusual smell, or if your symptoms get worse or do not improve after treatment. This information is not intended to replace advice given to you by your health care provider. Make sure you discuss any questions you have with your health care provider. Document Revised: 09/03/2020 Document Reviewed: 09/03/2020 [employer] Patient Education [address] Follow Up Care 08/22/2023 10:35:47 With:HERBIE GARCIA, Petey Duncan, URL Address: [facility] [address], [place] [address]- [phone] When: Unknown Comments:4 mos w/ PVR [facility] 10-07-2024 NotePatient Education Obstetrics and Gynecology Atrophic Vaginitis Atrophic vaginitis is a condition in which the tissues that line the vagina become dry and thin. This condition is most common in women who have stopped having regular menstrual periods (are in menopause). This usually starts when a woman is 45 to 55 years old. That is the time when a woman's estrogen levels begin to decrease. Estrogen is a female hormone. It helps to keep the tissues of the vagina moist. It stimulates the vagina to produce a clear fluid that lubricates the vagina for sex. This fluid also protects the vagina from infection. Lack of estrogen can cause the lining of the vagina to get thinner and dryer. Thevagina may also shrink in size. It may become less elastic. Atrophic vaginitis tends to get worse over time as a woman's estrogen level drops. What are the causes? This condition is caused by the normal drop in estrogen that happens around the time of menopause. What increases the risk? Certain conditions or situations may lower a woman's estrogen level, leading to a higher risk for atrophic vaginitis. You are more likely to develop this condition if: ? You are taking medicines that block estrogen. ? You have had your ovaries removed. ? You are being treated for cancer with radiation or medicines (chemotherapy). ? You have given or are . ? You are older than age 50. ? You smoke. What are the signs or symptoms? Symptoms of this condition include: ? Pain, soreness, a feeling of pressure, or bleeding during sex (dyspareunia). ? Vaginal burning, irritation, or itching. ? Pain or bleeding when a speculum is used in a vaginal exam. ? Having burning pain while urinating. ? Vaginal discharge. In some cases, there are no symptoms. How is this diagnosed? This condition is diagnosed based on your medical history and a physical exam. This will include a pelvic exam that checks the vaginal tissues. Though rare, you may also have other tests, including: ? A urine test. ? A test that checks the acid balance in your vagina (acid balance test). How is this treated? Treatment for this condition depends on how severe your symptoms are. Treatment may include: ? Using an jjto-qwj-dsaviap vaginal lubricant before sex. ? Using a long-acting vaginal moisturizer. ? Using low-dose estrogen for moderate to severe symptoms that do not respond to other treatments. Options include creams, tablets, and inserts (vaginal rings). Before you use a vaginal estrogen, tell your health care provider if you have a history of: ? Breast cancer. ? Endometrial cancer. ? Blood clots. If you are not sexually active and your symptoms are very mild, you may not need treatment. Follow these instructions at home: Medicines ? Take aumi-ndv-ikhtsic and prescription medicines only as told by your health care provider. ? Do not use herbal or alternative medicines unless your health care provider says that you can. ? Use qaoy-edc-ykhslwv creams, lubricants, or moisturizers for dryness only as told by your health care provider. General instructions ? If your atrophic vaginitis is caused by menopause, discuss all of your menopause symptoms and treatment options with your health care provider. ? Do not douche. ? Do not use products that can make your vagina dry. These include: ? Scented feminine sprays. ? Scented tampons. ? Scented soaps. ? Vaginal sex can help to improve blood flow and elasticity of vaginal tissue. If you choose to have sex and it hurts, try using a water-soluble lubricant or moisturizer right before having sex. Contact a health care provider if: ? Your discharge looks different than normal. ? Your vagina has an unusual smell. ? You have new symptoms. ? Your symptoms do not improve with treatment. ? Your symptoms get worse. Summary ? Atrophic vaginitis is a condition in which the tissues that line the vagina become dry and thin. It is most common in women who have stopped having regular menstrual periods (are in menopause). ? Treatment options include using vaginal lubricants and low-dose vaginal estrogen. ? Contact a health care provider if your vagina has an unusual smell, or if your symptoms get worseor do not improve after treatment. This information is not intended to replace advice given to you by your health care provider. Make sure you discuss any questions you have with your health care provider. Document Revised: 09/03/2020 Document Reviewed: 09/03/2020 [employer] Patient Education ? [address] 08-22-2023 Evaluation + Plan noteExtracted from:Title:Urology Progress Note Author:Petey STONER MD RDate:08/22/23 Impression and Plan Impression: #1. 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 2. She has urinary frequency and urge incontinence. Plan: #1. She will start estradiol cream 1 g intravaginally twice weekly. She will also rub a smallamount around the urethra at bedtime. 2. She will continue her oxybutynin ER 15 mg daily. 3. Follow-up will be in 4 months for reevaluation. Future Appointments Appointment Date:12/25/2023 09:30:00 AM Scheduled Provider:Petey STONER MD Location:[facility] Appointment Type:URO Office Visit [facility]06-04-2024 Hospital Discharge instructions Patient Education 08/22/2023 10:33:15 EU - Cystoscopy with Urethral Dilation Discharge Instructions (CUSTOM) Cystoscopy with Urethral Dilation Voiding after the procedure: there may be some pain, urethral bleeding, burning, urgency, frequencyand blood tinged urine following the procedure. These symptoms usually resolve within 2-5 days. Drink the amount of fluid it takes to keep the urine pink to yellow or clear in color. Drinking enough water and fluids will help to ease any discomfort after your procedure. If you are having problems that seem out of the ordinary, please call. If unable to contact your physician and you feel it is an emergency, go to the nearest emergency room or call 911 Diet you may resume your normal diet. Activity you may resume your normal activities Call if you have a fever over 100 degrees Follow Up Care 07/17/2023 13:27:37 With:Petey HERBIE Address: [address] [place] [phone] Business (1) When:12/22/2023 10:32:58 [facility]06-04-2024 Note [id number] [facility] NoteCustom Cystoscopy with Urethral Dilation ? Voiding after the procedure: there may be some pain, urethral bleeding, burning, urgency, frequency and blood tinged urine following the procedure. These symptoms usually resolve within 2-5 days. Drink the amount of fluid it takes to keep the urine pink to yellow or clear in color. Drinking enough water and fluids will help to ease any discomfort after your procedure. ? If you are having problems that seem out of the ordinary, please call. ? If unable to contact your physician and you feel it is an emergency, go to the nearest emergency room or call 911 ? Diet ? you may resume your normal diet. ? Activity ? you may resume your normal activities ? Call if you have a fever over 100 degrees[facility]04[facility]24 Hospital Discharge instructions Patient Education 07/17/2023 12:45:46 Urinary Incontinence Urinary Incontinence Urinary incontinence refers to a condition in which a person is unable to control where and when topass urine. A person with this condition will urinate involuntarily. This means that the person urinates when he or she does not mean to. What are the causes? This condition may be caused by: Medicines. Infections. Constipation. Overactive bladder muscles. Weak bladder muscles. Weak pelvic floor muscles. These muscles provide support for the bladder, intestine, and, in women,the uterus. Enlarged prostate in men. The prostate is a gland near the bladder. When it gets too big, it can pinch the urethra. With the urethra blocked, the bladder can weaken and lose the ability to empty properly. Surgery. Emotional factors, such as anxiety, stress, or post-traumatic stress disorder (PTSD). Spinal cord injury, nerve injury, or other neurological conditions. Pelvic organ prolapse. This happens in women when organs move out of place and into the vagina. This movement can prevent the bladder and urethra from working properly. What increases the risk? The following factors may make you more likely to develop this condition: Age. The older you are, the higher the risk. Obesity. Being physically inactive. and childbirth. Menopause. Diseases that affect the nerves or spinal cord. Long-term, or chronic, coughing. This can increase pressure on the bladder and pelvic floor muscles. What are the signs or symptoms? Symptoms may vary depending on the type of urinary incontinence you have. They include: A sudden urge to urinate, and passing urine involuntarily before you can get to a bathroom (urge incontinence). Suddenly passing urine when doing activities that force urine to pass, such as coughing, laughing, exercising, or sneezing (stress incontinence). Needing to urinate often but urinating only a small amount, or constantly dribbling urine (overflowincontinence). Urinating because you cannot get to the bathroom in time due to a physical disability, such as arthritis or injury, or due to a communication or thinking problem, such as Alzheimer's disease (functional incontinence). How is this diagnosed? This condition may be diagnosed based on: Your medical history. A physical exam. Tests, such as: ?Urine tests. ?X-rays of your kidney and bladder. ?Ultrasound. ?CT scan. ?Cystoscopy. In this procedure, a health care provider inserts a tube with a light and camera (cystoscope) through the urethra and into the bladder to check for problems. ?Urodynamic testing. These tests assess how well the bladder, urethra, and sphincter can store and release urine. There are different types of urodynamic tests, and they vary depending on what the test is measuring. To help diagnose your condition, your health care provider may recommend that you keep a log of when you urinate and how much you urinate. How is this treated? Treatment for this condition depends on the type of incontinence that you have and its cause. Treatment may include: Lifestyle changes, such as: ?Quitting smoking. ?Maintaining a healthy weight. ?Staying active. Try to get 150 minutes of moderate-intensity exercise every week. Ask your health care provider which activities are safe for you. ?Eating a healthy diet. ?Avoid high-fat foods, like fried foods. ?Avoid refined carbohydrates like white bread and white rice. ?Limit how much alcohol and caffeine you drink. ?Increase your fiber intake. Healthy sources of fiber include beans, whole grains, and fresh fruitsand vegetables. Behavioral changes, such as: ?Pelvic floor muscle exercises. ?Bladder training, such as lengthening the amount of time between bathroom breaks, or using the bathroom at regular intervals. ?Using techniques to suppress bladder urges. This can include distraction techniques or controlled breathing exercises. Medicines, such as: ?Medicines to relax the bladder muscles and prevent bladder spasms. ?Medicines to help slow or prevent the growth of a man's prostate. ?Botox injections. These can help relax the bladder muscles. Treatments, such as: ?Using pulses of electricity to help change bladder reflexes (electrical nerve stimulation). ?For women, using a biomedical equipment technician to prevent urine leaks. This is a small, tampon-like, disposabledevice that is inserted into the urethra. ?Injecting collagen or carbon beads (bulking agents) into the urinary sphincter. These can help thicken tissue and close the bladder opening. ?Surgery. Follow these instructions at home: Lifestyle Limit alcohol and caffeine. These can fill your bladder quickly and irritate it. Keep yourself clean to help prevent odors and skin damage. Ask your health care provider about special skin creams and cleansers that can protect the skin from urine. Consider wearing pads or adult diapers. Make sure to change them regularly, and always change them right after experiencing incontinence. General instructions Take ovfq-kif-iiomfrk and prescription medicines only as told by your health care provider. Use the bathroom about every 3 4 hours, even if you do not feel the need to urinate. Try to empty your bladder completely every time. After urinating, wait a minute. Then try to urinate again. Make sure you are in a relaxed position while urinating. If your incontinence is caused by nerve problems, keep a log of the medicines you take and the times you go to the bathroom. Keep all follow-up visits. This is important. Where to find more information [employer]estive [employer] Kidney Diseases: www.niddk.nih.gov [employer]: www.urologyhealth.org Contact a health care provider if: You have pain that gets worse. Your incontinence gets worse. Get help right away if: You have a fever or chills. You are unable to urinate. You have redness in your groin area or down your legs. Summary Urinary incontinence refers to a condition in which a person is unable to control where and when topass urine. This condition may be caused by medicines, infection, weak bladder muscles, weak pelvic floor muscles, enlargement of the prostate (in men), or surgery. Factors such as older age, obesity, and childbirth, menopause, neurological diseases, andchronic coughing may increase your risk for developing this condition. Types of urinary incontinence include urge incontinence, stress incontinence, overflow incontinence, and functional incontinence. This condition is usually treated first with lifestyle and behavioral changes, such as quitting smoking, eating a healthier diet, and doing regular pelvic floor exercises. Other treatment options include medicines, bulking agents, medical devices, electrical nerve stimulation, or surgery. This information is not intended to replace advice given to you by your health care provider. Make sure you discuss any questions you have with your health care provider. Document Revised: 10/09/2020 Document Reviewed: 10/09/2020 [employer] Patient Education [address] Follow Up Care 05/03/2023 10:13:35 With:HERBIE GARCIA, Petey Duncan, URL Address: [facility] [address] , [place] [address]- [phone] When: Unknown [facility] 02-14-2024 Hospital Discharge instructions Patient Education 05/03/2023 10:10:27 Overactive Bladder, Adult Overactive Bladder, Adult Overactive bladder is a condition in which a person has a sudden and frequent need to urinate. A person might also leak urine if he or she cannot get to the bathroom fast enough (urinary incontinence). Sometimes, symptoms can interfere with work or social activities. What are the causes? Overactive bladder is associated with poor nerve signals between your bladder and your brain. Your bladder may get the signal to empty before it is full. You may also have very sensitive muscles thatmake your bladder squeeze too soon. This condition may also be caused by other factors, such as: Medical conditions: ?Urinary tract infection. ?Infection of nearby tissues. ?Prostate enlargement. ?Bladder stones, inflammation, or tumors. ?Diabetes. ?Muscle or nerve weakness, especially from these conditions: ?A spinal cord injury. ?Stroke. ?Multiple sclerosis. ?Parkinson's disease. Other causes: ?Surgery on the uterus or urethra. ?Drinking too much caffeine or alcohol. ?Certain medicines, especially those that eliminate extra fluid in the body (diuretics). ?Constipation. What increases the risk? You may be at greater risk for overactive bladder if you: Are an older adult. Smoke. Are going through menopause. Have prostate problems. Have a neurological disease, such as stroke, dementia, Parkinson's disease, or multiple sclerosis (MS). Eat or drink alcohol, spicy food, caffeine, and other things that irritate the bladder. Are overweight or obese. What are the signs or symptoms? Symptoms of this condition include a sudden, strong urge to urinate. Other symptoms include: Leaking urine. Urinating 8 or more times a day. Waking up to urinate 2 or more times overnight. How is this diagnosed? This condition may be diagnosed based on: Your symptoms and medical history. A physical exam. Blood or urine tests to check for possible causes, such as infection. You may also need to see a health care provider who specializes in urinary tract problems. This is called a urologist. How is this treated? Treatment for overactive bladder depends on the cause of your condition and whether it is mild or severe. Treatment may include: Bladder training, such as: ?Learning to control the urge to urinate by following a schedule to urinate at regular intervals. ?Doing Kegel exercises to strengthen the pelvic floor muscles that support your bladder. Special devices, such as: ?Biofeedback. This uses sensors to help you become aware of your body's signals. ?Electrical stimulation. This uses electrodes placed inside the body (implanted) or outside the body. These electrodes send gentle pulses of electricity to strengthen the nerves or muscles that control the bladder. ?Women may use a plastic device, called a pessary, that fits into the vagina and supports the bladder. Medicines, such as: ?Antibiotics to treat bladder infection. ?Antispasmodics to stop the bladder from releasing urine at the wrong time. ?Tricyclic antidepressants to relax bladder muscles. ?Injections of botulinum toxin type A directly into the bladder tissue to relax bladder muscles. Surgery, such as: ?A device may be implanted to help manage the nerve signals that control urination. ?An electrode may be implanted to stimulate electrical signals in the bladder. ?A procedure may be done to change the shape of the bladder. This is done only in very severe cases. Follow these instructions at home: Eating and drinking Make diet or lifestyle changes recommended by your health care provider. These may include: ?Drinking fluids throughout the day and not only with meals. ?Cutting down on caffeine or alcohol. ?Eating a healthy and balanced diet to prevent constipation. This may include: ?Choosing foods that are high in fiber, such as beans, whole grains, and fresh fruits and vegetables. ?Limiting foods that are high in fat and processed sugars, such as fried and sweet foods. Lifestyle Lose weight if needed. Do not use any products that contain nicotine or tobacco. These include cigarettes, chewing tobacco, and vaping devices, such as e-cigarettes. If you need help quitting, ask your health care provider. General instructions Take zlle-kgc-zrjsopy and prescription medicines only as told by your health care provider. If you were prescribed an antibiotic medicine, take it as told by your health care provider. Do notstop taking the antibiotic even if you start to feel better. Use any implants or pessary as told by your health care provider. If needed, wear pads to absorb urine leakage. Keep a log to track how much and when you drink, and when you need to urinate. This will help your health care provider monitor your condition. Keep all follow-up visits. This is important. Contact a health care provider if: You have a fever or chills. Your symptoms do not get better with treatment. Your pain and discomfort get worse. You have more frequent urges to urinate. Get help right away if: You are not able to control your bladder. Summary Overactive bladder refers to a condition in which a person has a sudden and frequent need to urinate. Several conditions may lead to an overactive bladder. Treatment for overactive bladder depends on the cause and severity of your condition. Making lifestyle changes, doing Kegel exercises, keeping a log, and taking medicines can help with this condition. This information is not intended to replace advice given to you by your health care provider. Make sure you discuss any questions you have with your health care provider. Document Revised: 11/23/2020 Document Reviewed: 11/23/2020 [employer] Patient Education [address] Follow Up Care 05/01/2023 15:11:29 With:HERBIE GARCIA, Petey Duncan, URL Address: [facility] [address] [place] [address]- When: Unknown [facility]* Encounter Date Diagnosis Assessment Notes Treatment Notes Treatment Clinical Notes Aug, Acute sinusitis, rec urrence not specified, unspecified location (ICD-10 - J01.90) Sinusitis home care material was printed Drink plenty fluids, get plenty of rest. Take the amoxicillin with clavulanate and prednisone as prescribed until gone. Continue take your Claritin-D daily. Take Tylenol or Motrin as needed for achespains or fevers. Follow-up with your family physician if no improvement in 2 to 3 days [email or web address] Other 08-01-2012 History general Narrative - Reported* Type Description Date Surgical History back fusion at l5 10/2011 Surgical History tubal ligation 07/2004 Surgical History elbow surgery biateral 2004 Surgical History trigger finger release 09/2012 Surgical History patiral hysterectomy 03/2008 Hospitalization History child Hospitalization Historysee above [email or web address] Other Evaluation + Plan note Future Appointments Appointment Date:07/17/2023 11:15:00 AM Scheduled Provider:Petey STONER MD Location:[facility] Appointment Type:URO Office Visit [facility] [employer] Evaluation + Plan note Future Appointments Appointment Date:08/17/2023 01:30:00 PM Scheduled Provider: Location:[facility] Appointment Type:Urology CALL PAT FT Appointment Date:08/22/2023 09:45:00 AM Scheduled Provider: Location:[facility] Appointment Type:Urology FT [facility] evaluation + Plan note Future Appointments Appointment Date:04/26/2024 09:45:00 AM Scheduled Provider:Petey STONER MD Location:[facility] Appointment Type:URO Office Visit [facility] evaluation + Plan note Future Appointments Appointment Date:04/28/2025 10:30:00 AM Scheduled Provider:Petey STONER MD Location:[facility] Appointment Type:URO Office Visit [facility] evaluation noteNo InformationNort [facility] Other Evaluation noteNo assessment information available [facility] Work Phone: Evaluation note* Diagnosis Medicare annual wellness visit, subsequent- Primary ACP (advance care planning) Other specified counseling Encounter for screening mammogram for malignant neoplasm of breast Other headache syndrome Chronic obstructive pulmonary disease, unspecified COPD type (CMS/HCC) OAB (overactive bladder) Prolapse of urethra Prolapsed urethral mucosa Stricture of female urethra, unspecified stricture type Urge incontinence Vaginal atrophy Postmenopausal atrophic vaginitis Sacroiliitis, not elsewhere classified (CMS/HCC) Sacroiliitis, not elsewhere classified Snapping thumb syndrome, unspecified laterality Chronic sinusitis, unspecified location Diverticulosis Diverticulosis of colon (without mention of hemorrhage) Seasonal allergic rhinitis due to pollen Bruxism (CMS/HCC) Other specified psychophysiological malfunction Difficulty walking Difficulty in walking Fibrocystic breast changes, unspecified laterality History of hysterectomy Acquired absence of both cervix and uterus Pure hypercholesterolemia (CMS/HCC) Pure hypercholesterolemia Urinary frequency Former smoker Personal history of tobacco use, presenting hazards to health Early dry stage nonexudative age-related macular degeneration of both eyes Other problems related to lifestyle [facility] Diagnosis Diverticulosis of colon- Primary Diverticulosis of colon (without mention of hemorrhage) Chronic obstructive pulmonary disease, unspecified (CMS/HCC) Diverticulitis Diverticulitis of colon (without mention of hemorrhage) Generalized abdominal pain Abdominal pain, generalized Tubular adenoma of colon Benign neoplasm of colon [facility]* Diagnosis Diverticulosis of colon- Primary Diverticulosis of colon (without mention of hemorrhage) Chronic obstructive pulmonary disease, unspecified Diverticulitis Diverticulitis of colon (without mention of hemorrhage) Generalized abdominal pain Abdominal pain, generalized Tubular adenoma of colon Benign neoplasm of colon Urinary tract infection with hematuria, site unspecified- Primary [facility] Diagnosis Diverticulosis of colon- Primary Diverticulosis of colon (without mention of hemorrhage) Chronic obstructive pulmonary disease, unspecified Diverticulitis Diverticulitis of colon (without mention of hemorrhage) Generalized abdominal pain Abdominal pain, generalized Tubular adenoma of colon Benign neoplasm of colon Seasonal allergic rhinitis due to pollen documented in this encounter [facility]* Diagnosis Diverticulosis of colon- Primary Diverticulosis of colon (without mention of hemorrhage) Chronic obstructive pulmonary disease, unspecified Diverticulitis Diverticulitis of colon (without mention of hemorrhage) Generalized abdominal pain Abdominal pain, generalized Tubular adenoma of colon Benign neoplasm of colon Chronic sinusitis, unspecified location- Primary Seasonal allergic rhinitis due to pollen documented in this encounter [facility]* Diagnosis Diverticulosis of colon- Primary Diverticulosis of colon (without mention of hemorrhage) Chronic obstructive pulmonary disease, unspecified (HCC) Diverticulitis Diverticulitis of colon (without mention of hemorrhage) Generalized abdominal pain Abdominal pain, generalized Tubular adenoma of colon Benign neoplasm of colon Diverticulitis- Primary Diverticulitis of colon (without mention of hemorrhage) Bilateral ovarian cysts Other and unspecified ovarian cyst documented in this encounter [facility]* Diagnosis Diverticulitis- Primary Diverticulitis of colon (without mention of hemorrhage) [facility] Diverticulitis Diverticulitis of colon (without mention of hemorrhage) [facility] Diagnosis Diverticulosis of colon- Primary Diverticulosis of colon (without mention of hemorrhage) Chronic obstructive pulmonary disease, unspecified (HCC) Diverticulitis Diverticulitis of colon (without mention of hemorrhage) Generalized abdominal pain Abdominal pain, generalized Tubular adenoma of colon Benign neoplasm of colon Diverticulitis- Primary Diverticulitis of colon (without mention of hemorrhage) OAB (overactive bladder) documented in this encounter [facility]* Diagnosis Diverticulosis of colon- Primary Diverticulosis of colon (without mention of hemorrhage) Chronic obstructive pulmonary disease, unspecified (HCC) Diverticulitis Diverticulitis of colon (without mention of hemorrhage) Generalized abdominal pain Abdominal pain, generalized Tubular adenoma of colon Benign neoplasm of colon Diverticulitis- Primary Diverticulitis of colon (without mention of hemorrhage) OAB (overactive bladder) Bilateral ovarian cysts Other and unspecified ovarian cyst Vaginal itching Pruritus of genital organs Yeast infection Vaginal atrophy Postmenopausal atrophic vaginitis documented [facility] Diagnosis Diverticulosis of colon- Primary Diverticulosis of colon (without mention of hemorrhage) Chronic obstructive pulmonary disease, unspecified (HCC) Diverticulitis Diverticulitis of colon (without mention of hemorrhage) Generalized abdominal pain Abdominal pain, generalized Tubular adenoma of colon Benign neoplasm of colon Diverticulitis- Primary Diverticulitis of colon (without mention of hemorrhage) OAB (overactive bladder) Encounter to discuss test results Other specified counseling Cyst of right ovary Other and unspecified ovarian cyst documented in this [facility] Author Geneva Thomas [facility] February 15, 2023 9:08amNote Date/TimeNovember 2022 9:08[place] [address] Gastroenterology H&P Signed Patient: Jeanie Hardin MR#: [id number] : 1955 Acct:[id number] Age/Sex: 67 / F Adm Date: 3 Loc: Room: Type: [facility] Attending Dr: Geneva Thomas MD Copies to: MD Iván Anderson MD~ Date of Service: 02/15/2023 HISTORY & PHYSICAL: Patient's history with special attention to the cardiovascular, pulmonary systems and the current problem was reviewed with the patient immediately prior to the procedure. Present medications and doses reviewed in the EMR. Allergies and pertinent laboratory tests were also re viewedat this time in the EMR. The physical examination, as below, was then performed. Indication, assessment and HPI: 67-year-old female here for screening colonoscopy. Family history of GI malignancy? No PHYSICAL EXAMINATION Mouth and Pharynx : Moist mucus membranes, normal dentition Cardiac: Regular rate, regular rhythm Pulmonary: Clear to auscultation bilaterally, no wheezing Neurological: Alert and oriented x3, no focal deficits noted Abdomen: Abdomen soft, non-tender REVIEW OF SYSTEMS Constitutional: Denies malaise, fevers Cardiovascular: Denies chest pain, palpitations Respiratory: Denies shortness of breath, wheezing Gastrointestinal: Per HPI Genitourinary: Denies dysuria, polyuria Musculoskeletal: Denies joint swelling, joint stiffness Neurological: Denies numbness, tingling Integumentary: Denies rashes, skin lesions Endocrine: Denies fatigue, weight loss Written informed consent obtained from the patient. Risks (including but not limited to perforation, infection, bloating, bleeding, need for emergent surgeryand loss of life), benefits and alternatives explained and questions answered. The patient verbalized understanding. Based on history patient is an appropriate candidate for the procedure. Geneva Thomas M.D. Documented By: Geneva Thomas MD 02/15/23907 Signed By: <Electronically signed by Geneva Thomas MD> 02/15/23907 [facility] Work Phone: Hospital course Narrative No data available for this section [facility] Hospital Discharge instructions Additional Instructions DISCHARGE INSTRUCTIONS FOR COLONOSCOPY WHAT TO EXPECT: - You may feel full, gassy or cramping after your procedure. In some cases, this may be from a few hours to a day. Walking may help relieve the discomfort. - If you have polyp(s) removed you may note some minor bloody discharge after your first bowel movements. - You should begin to recover from anesthesia within 1 hour of the procedure, however may feel groggy for the next 24 hours. DO's AND DON'Ts: - Call your doctor right away if you have a hard abdomen, severe pain, are passing lots of bright red blood or clots. - Call your doctor if you develop any rashes, hives or difficulty breathing. - Let your doctor know if you have not had a bowel movement by 3 days after your procedure. - If you take 81 mg aspirin for your heart it is safe to resume this medication. - If you take other blood thinner medications your doctor will instruct you when these can safely be resumed. - Do NOT drive for 24 hours. - Do NOT operate machinery such as power tools, lawn mowers, snow blowers, sewing machines, etc. for 24 hours. - Avoid alcoholic beverages and drugs for allergies, nerves, or sleep. - Do NOT stay alone. Do NOT leave your child unattended. - Do NOT make important personal or business decisions or sign any legal documents. - Eat solid foods and drink liquids in smaller amounts than usual until normal appetite returns. If you should experience an upset stomach, liquids high in sugar content (soda, Robb-Aid, non-acid juices) are recommended. - You can resume normal activities tomorrow. FOLLOW UP & RECOMMENDATIONS: -Notify the doctor if you have any problems. -Repeat colonoscopy based on polyps pathology -Follow up with PCP. -Office number [phone]. [facility] Work Phone: Progress note No data available for this section [facility] Reason for referral (narrative)No reason for referral information available[facility] Work Phone: Summary Purpose Family History No Family History Records Found Relationship Condition Age at Onset Recorded Date/T jenifer Not Specified No pertinent family history Unknown Advance Directives No Advanced Directives Records Found Advance Directive Response Recorded Date/ Time Advance Directives No January 15, 2018 7:16am Advance Directive Response Recorded Date/ Time Advance Directives No January 15, 2018 8:16am Chief Complaint and Reason for Visit Chief Complaint Screening Chief Complaint Admit Date Dysuria January 09, 2025 3 :49pm Reason for Visit Admit Date Acute UTI January 09, 2025 3 :49pm Additional Source Comments INFORMATION SOURCE (unrecogn ized section and content) DATE CREATED AUTHOR 03/22/2022 [facility] DATE CREATED AUTHOR AUTHOR'S ORGANIZ ATION 04/16/2023 [facility] DATE CREATED AUTHOR AUTHOR'S ORGANIZ ATION 04/28/2024 [facility] DATE CREATED AUTHOR AUTHOR'S ORGANIZ ATION 10/21/[address] [facility] DATE CREATED AUTHOR AUTHOR'S ORGANIZ ATION 10/25/2024 [facility] DATE CREATED AUTHOR AUTHOR'S ORGANIZ ATION 11/20/2024 [facility] DATE CREATED AUTHOR AUTHOR'S ORGANIZ ATION 01/17/2025 [facility] REASON FOR VISIT (unrecogniz ed section and content) ReasonCommentsMedicare Annual Wellness Visit SubsequentReasonCommentsbowel issuesReasonOnset DateCommentsMed Uwigei7408/13/2024Needs Claritin D 24hrs not the reg claritin. 30 dayReasonCommentsDiverticulitisSpecialtyDiagnoses / Procedures Referred By ContactReferred To ContactGastroenterology Diagnoses Diverticulitis Procedures CONSULT TO GASTROENTEROLOGY OFFICE/OUTPATIENT [facility] MDM 60 MINUTES Namrata Frank, NEWSPAPER PEDDLER Phone: tel: fax: Referral IDStatusReasonStart DateExpiration DateVisits RequestedVisits [id number] PCP Requested Referral [id number] CystSpecialtyDiagnoses / Procedures Referred By ContactReferred To ContactObstetrics and Gynecology Diagnoses Bilateral ovarian cysts Procedures MA OFFICE/OUTPATIENT [facility] MDM 60 MINUTES Namrata Frank, PHOTOGRAPHIC EQUIPMENT INSPECTOR [address] [facility] [address] [place] [address] Phone: tel: fax: Christ Ewing, [address] [place] [address] Phone: tel: fax: Referral IDStatusReasonStart DateExpiration DateVisits RequestedVisits [id number] Specialty Services Required /[id number] present today for a f/up visit to discuss US results. (Ovarian cyst) Care Teams (unrecognized sec tion and content) Team Status: Active Member Role Status Dates Iván Marroquin MD Primary Care Provider Active Team Status: Inactive Member Role Status Dates Iván Marroquin MD Primary Care Provider Active Imkarissa Thomas MDAttending ProviderActiveTeam MemberRelationshipSpecialtyStart DateEnd Date Iván Marroquin MD [address] [facility] [address] [place] [address] PCP - GeneralFarily Medicine07/26/22 Iván Marroquin MD [address] [facility] [address] [place] [address] PCP - [facility]03/20/23Team MemberRelationshipSpecialtyStart DateEnd Date Iván Marroquin MD [address] [place] [address] [place] [address] PCP - GeneralFami Medicine07/26/22 Iván Marroquin MD [address] [place] [address] [place] [address] PCP - [facility]03/20/23Team MemberRelationshipSpecialtyStart DateEnd Date Iván Marroquin MD [address] [place] [address] [place] [address] [facility]/26/22 Iván Marroquin MD [address] [place] [address] [place] [address] PCP - [facility]03/20/23Team MemberRelationshipSpecialtyStart DateEnd Date Iván Marroquin MD [address] [place] [address] [place] [address] PCP - [facility]07/26/22Team MemberRelationshipSpecialtyStart DateEnd Date Iván Marroquin MD [address] [place] [address] [place] [address] [facility]07/26/22Team MemberRelationshipSpecialtyStart DateEnd Date Iván Marroquin MD [address] [place] [address] [place] [address] PCP - [facility]07/26/22 Iván Marroquin MD [address] [place] [address] [place] [address] PCP - Medical [facility]03/20/2511Team MemberRelationshipSpecialtyStart Date End Date Iván Marroquin MD [address] [place] [address] [place] [address] PCP - [facility]07/26/22 Iván Marroquin MD [address] [place] [address] [place] [address] PCP - Medical [facility]03/20/2511Team MemberRelationshipSpecialtyStart Date End Date Iván Marroquin MD [address] [place] [address] [place] [address] PCP - [facility]07/26/22 Iván Marroquin MD [address] [place] [address] [place] [address] PCP - Medical [facility]03/20/2511Team MemberRelationshipSpecialtyStart Date End Date Iván Marroquin MD [address] [place] [address] [place] [address] PCP - [facility]07/26/22 Iván Marroquin MD [address] [place] [address] [place] [address] PCP - Medical [facility]03/20/2511Team MemberRelationshipSpecialtyStart Date End Date Iván Marroquin MD [address] [place] [address] [place] [address] PCP - [facility]07/26/22 Iván Marroquin MD [address] [place] [address] [place] [address] PCP - [place]03/20/2511Team MemberRelationshipSpecialtyStart Date End Date Namrata Frank, ORDERLIES TEACHER [address] [place] [address] [place] [address] ReferringFamily Medicine10/04/24Team MemberRelationshipSpecialtyStart DateEnd Date Namrata Frank, NEWSPAPER PEDDLER [address] [place] [address] [place] [address] ReferringFamily Medicine10/04/24Team MemberRelationshipSpecialtyStart DateEnd Date Iván Marroquin MD [address] [place] [address] [place] [address] PCP - Generalmi Medicine07/26/22 Iván Marroquin MD [address] [place] [address] [place] [address] PCP - [place]03/20/2511Team MemberRelationshipSpecialtyStart Date End Date Iván Marroquin MD [address] [place] [address] [place] [address] PCP - Generalmi Medicine07/26/22 Iván Marroquin MD [address] [place] [address] [place] [address] PCP - [facility] [place]03/20/2511Team MemberRelationshipSpecialtyStart Date End Date Iván Marroquin MD [address] [place] [address] [place] [address] [facility] - [facility]07/26/22 Iván Marroquin MD [address] [facility] [address] [place] [address] [facility]03/20/2511Team MemberRelationshipSpecialtyStart Date End Date Iván Marroquin MD [address] [facility] [address] [place] [address] [facility]07/26/22 Iván Marroquin MD [address] [facility] [address] [place] [address] [facility]03/20/2511 Team Status: Active Member Role/Relationship Status Dates Iván Marroquin MD Primary Care Provider Active Team Status: Inactive Member Role/Relationship Status Dates Iván Marroquin MD Primary Care Provider Active S tart: January 09, 2025 End: January 09, 2025Damian Beatty ProviderActiveStart: January 09, 2025 End: January 09, 2025 Team Status: Inactive Member Role/Relationship Status Dates Iván Marroquin MD Primary Care Provider Active S tart: January 09, 2025 End: January 09, 2025Damian Beatty ProviderActiveStart: January 09, 2025 End: January 09, 2025 Team Status: Inactive Member Role/Relationship Status Dates Coco Reilly APRN Attending Provider Active Start: January 09, 2025 End: January 09, 2025Team MemberRelationshipSpecialtyStart DateEnd Date Iván Marroquin MD [address] [facility] [address] [place] [address] [facility]07/26/22 Iván Marroquin MD [address] [facility] [address] [place] [address] PCP - [facility]/ Iván Marroquin MD [address] [facility] [address] [place] [address] PCP - [place]/Team MemberRelationshipSpecialtyStart Date End Date Iván Marroquin MD [address] [facility] [address] [place] [address] PCP - Generalmily [facility]07/26/22 Iván Marroquin MD [address] [facility] [address] [place] [address] PCP - [place]/ Iván Marroquin MD [address] [facility] [address] [place] [address] PCP - [facility]/ Iván Marroquin MD [address] [facility] [address] [place] [address] PCP - [place]03/20/2511 Source Comments (unrecognize d section and content) In the event this informatio n is protected by the Federal Confidentiality of Alcohol and Drug Abuse Patient Records regulations: The Federal rules restrict any use of the information to criminally investigate or prosecute any alcohol or drug abuse patient.[facility] HospitalIn the event this information is protected by the Federal Confidentiality of Alcohol and Drug Abuse Patient Records regulations: The Federal rules restrict any use of the information to criminally investigate or prosecute any alcohol or drug abuse patient.[facility] Goals (unrecognized section and content) Goals may be documented in a n alternate section FOR RECORDS PERTAINING TO PATIENTS WHO ARE OR HAVE BEEN ENROLLED IN A CHEMICAL DEPENDENCY/SUBSTANCEABUSE PROGRAM, SOME INFORMATION MAY BE OMITTED. This clinical summary was aggregated from multiple sources. Caution should be exercised in using it in the provision of clinical care. This summary normalizes information from multiple sources, and as a consequence, information in this document may materially change the coding, format and clinical context of patient data. In addition, data may be omitted in some cases. CLINICAL DECISIONS SHOULD BE BASED ON THE PRIMARY CLINICAL RECORDS. [employer] [facility]. provides no warranty or guarantee of the accuracy or completeness of information in this document.
== END 2025-02-26 09:38 | disposition home or self-care (01) ==
LOC: MAMMO 09:39
PROVIDERS: PCP Family Medicine; Visit Provider Family Medicine
DX: Z12.31 Encounter for screening mammogram for malignant neoplasm of breast (principal); Z80.52 Family history of malignant neoplasm of bladder; Z80.42 Family history of malignant neoplasm of prostate; Z80.3 Family history of malignant neoplasm of breast; Z80.8 Family history of malignant neoplasm of other organs or systems
CPT/HCPCS: 77063; 77067